=== PATIENT | male | born 1945 | race Caucasian/White ===

== ENCOUNTER 2017-04-06 13:57 | Inpatient (IN) | payer MEDICARE, OTHER ==
[~2017-04-06] VITALS: Ht 172.7 cm; Wt 64.9 kg
[~2017-04-06 13:57] MED LIST: ASPIR 8181 MG PO; B12INJ PO; CILOSTAZOL 100100 M1 PO; FOLIC ACID1 MG PO; LIPITOR40 MG PO; NICOTINE TRANSD21 M1 SUBQ; NIFEDICAL XL60 MG; PLAVIX 75 MG TA75 M1 PO; PROCARDIA XL60 MG PO; REMERON15 MG PO; TOPROL XL100 MG PO; VITAMIN D1000 UNIT PO
[2017-04-06 14:01] VITALS: BP 119/60
[2017-04-06 14:24] LABS: ABSOLUTE BASOPHILS 0.1 thou/uL (0.0-0.2); ABSOLUTE EOSINOPHILS 0.2 thou/uL (0.0-0.7); ABSOLUTE LYMPHOCYTES 2.7 thou/uL (0.8-5.3); ABSOLUTE MONOCYTES 0.7 thou/uL (0.0-1.2); ABSOLUTE NEUTROPHILS 12.7 thou/uL (1.6-8.1); BASOPHILS 0.5 %; HEMATOCRIT 38.9 % (42.0-52.0); HEMOGLOBIN 13.1 gm/dL (14.0-18.0); LYMPHOCYTES 16.4 %; MCH 30.3 pg (26.0-34.0); MCHC 33.6 g/dL (28.0-37.0); MCV 89.9 fL (80.0-100.0); MONOCYTES 4.4 %; MPV 8.6 fl. (7.2-11.1); NUCLEATED RBCS 0 /100WBC; PLATELET COUNT* 302 thou/uL (150-400); POLYS 77.7 %; RBC 4.32 mil/uL (4.50-6.00); RDW-CV 13.8 % (10.5-14.5); WBC 16.3 thou/uL (4.0-11.0)
[2017-04-06 14:38] LABS: ANION GAP 13 mmol/L (7-16); APTT 29.8 Seconds (25.0-31.3); BUN 29 mg/dL (7-18); CALCIUM 9.2 mg/dL (8.5-10.1); CHLORIDE 103 mmol/L (98-107); CO2 25 mmol/L (21-32); GLUCOSE 178 mg/dL (70-99); INR 1.1; POTASSIUM 3.3 mmol/L (3.5-5.1); PROTIME 10.5 Seconds (9.20-11.50); SODIUM 141 mmol/L (136-145)
[2017-04-06 14:43] LABS: ALBUMIN 3.3 g/dL (3.4-5.0); ALKALINE PHOSPHATASE 82 U/L (46-116); SGOT 26 U/L (15-37); SGPT 33 U/L (30-65); TOTAL BILIRUBIN 1.7 mg/dL (<0.1-1.0); TOTAL PROTEIN 7.9 g/dL (6.4-8.2); TROPONIN-I LEVEL <0.06 ng/mL (<0.06)
--- NOTE | 2017-04-06 15:02 | NUR ---
[facility] SECURITY INCIDENT RESPONSE SPECIALIST NOTIFIED UPON PT RETURN FROM CT. PT CONNECTED TO O2. DAVID CONNECTED PT TO MONITOR
[2017-04-06 16:06] LABS: INFLUENZA A ANTIGEN None Detected (None Detect); INFLUENZA B ANTIGEN None Detected (None Detect)
[2017-04-06 16:28] VITALS: BP 117/69
[2017-04-06 18:33] VITALS: BP 133/67
[2017-04-06 20:00] VITALS: BP 119/53
--- NOTE | 2017-04-06 20:00 | NUR ---
RECEIVED REPORT AND ASSUMED CARE OF PT, ASSESSMENT COMPLETED. PT PLEASANT AND SOFT SPOKEN. DGT AT BEDSIDE. O2 ON AT 2L/NC, NO SOB NOTED, HOB ELEVATED. DGT CONCERNED THAT PT WILL NOT GET SLEEP TONIGHT. STATES HE GOES TO SLEEP BUT DOESN'T STAY ASLEEP. TELEMETRY ON SHOWING SR. WILL CONT TO MONITOR AND ASSIST NEEDED.
[2017-04-07] VITALS: BP 128/55
[2017-04-07 04:00] VITALS: BP 118/50
--- NOTE | 2017-04-07 05:23 | NUR ---
AWAKE MOST OF NIGHT. PT HAS BEEN NPO ORDERED. PREVIOUSLY DRANK COFFEE AND WATER WITHOUT COUGHING OR CHOKING. ABLE TO TAKE HS MEDS ALSO. TELEMETRY CONT TO SHOW SR. GOAL OF COMFORT OBTAINED BUT NOT REST, REMAINS SAFE. HOURLY ROUNDING OBSERVED.
[2017-04-07 05:41] LABS: ABSOLUTE LYMPHOCYTES 1.6 thou/uL (0.8-5.3); ABSOLUTE MONOCYTES 0.2 thou/uL (0.0-1.2); ABSOLUTE NEUTROPHILS 9.8 thou/uL (1.6-8.1); BASOPHILS 0.1 %; HEMATOCRIT 38.4 % (42.0-52.0); HEMOGLOBIN 12.6 gm/dL (14.0-18.0); LYMPHOCYTES 13.6 %; MCH 29.7 pg (26.0-34.0); MCHC 32.9 g/dL (28.0-37.0); MCV 90.3 fL (80.0-100.0); MONOCYTES 1.3 %; NUCLEATED RBCS 0 /100WBC; PLATELET COUNT* 286 thou/uL (150-400); RBC 4.25 mil/uL (4.50-6.00); RDW-CV 13.8 % (10.5-14.5); WBC 11.6 thou/uL (4.0-11.0)
[2017-04-07 06:01] LABS: CALCIUM 9.3 mg/dL (8.5-10.1); CREATININE 1.1 mg/dL (0.6-1.3); POTASSIUM 3.7 mmol/L (3.5-5.1)
[2017-04-07 08:00] VITALS: BP 118/63
--- NOTE | 2017-04-07 09:35 | NUR ---
ASSUMED CARE OF PT AROUND 30 THIS AM. REFER TO ASSESSMENT. PT VOICES NO CONCERNS THIS AM. PT SATS WNL ON RA. IVF INFUSING WITHOUT DIFFICULTY. TELE SR. NO OTHER CONCERNS AT THIS TIME. CLWR. WCTM.
[2017-04-07 11:41] VITALS: BP 121/64
--- NOTE | 2017-04-07 13:20 | EKG ---
[place] [address] ELECTROCARDIOGRAM REPORT Name: SHERI RUVALCABA Room: [address] ADM IN .R.#: [id number] Admission: 04/06/17 Attend Phys: Reginaldo Maloney MD Discharge: Date of : 45 Report #: [id number] THIS REPORT FOR: //name// [facility] ED Test Date: 2017-04-06 Test Time: 14:06:30 Pat Name: SHERI RUVALCABA Department: Room: [facility] Gender: M Count Team Clerk: Robert LANGFORD : 1945 Requested By: Rey Guerrero Order Number: [id number] MD: González Muñoz Measurements Intervals [place] Rate: 77 P: 93 MD: 52 QRS: 66 QRSD: 82 T: 76 QT: 400 QTc: 453 Interpretive Statements Sinus rhythm Short MD interval Baseline wander in lead(s) V4,V5,V6 Compared to ECG 03/03/2010 09:47:52 Short MD interval now present Left ventricular hypertrophy no longer present Electronically Signed On 04-07-2017 13:19:57 HEAD END DESIZING MACHINE OPERATOR by González Muñoz [email or web address] <ELECTRONICALLY SIGNED> By: González Muñoz MD, FACC 04/07/17 1319 1406 1406 González Muñoz MD, FAC /EPI
[2017-04-07 15:23] VITALS: BP 136/62
--- NOTE | 2017-04-07 17:01 | NUR ---
PT PROGRESSING TOWARDS GOALS THIS SHIFT. PLAN OF CARE DISCUSSED WITH PT AND FAMILY. PT TO HAVE VIDEO SWALLOW COMPLETED OUTPATIENT. RN ASSESSED SWALLOW EVAL AT BEDSIDE AND PT DID WELL. PT TITRATED TO RA THIS SHIFT. ANTICIPATE DC HOME TOMORROW. NO OTHER CONCERNS AT THIS TIME. CLWR. WCTM.
[2017-04-08] VITALS (7 sets, daily range): BP systolic 122–152; BP diastolic 49–74
[2017-04-08 06:00] LABS: HEMATOCRIT 35.4 % (42.0-52.0); HEMOGLOBIN 11.7 gm/dL (14.0-18.0); MCH 29.9 pg (26.0-34.0); MCHC 32.9 g/dL (28.0-37.0); MCV 90.9 fL (80.0-100.0); MPV 9.2 fl. (7.2-11.1); NUCLEATED RBCS 0 /100WBC; PLATELET COUNT* 282 thou/uL (150-400); WBC 17.8 thou/uL (4.0-11.0)
[2017-04-08 06:08] LABS: ALBUMIN 2.7 g/dL (3.4-5.0); CALCIUM 8.6 mg/dL (8.5-10.1); POTASSIUM 3.7 mmol/L (3.5-5.1); TOTAL BILIRUBIN 0.5 mg/dL (<0.1-1.0); TOTAL PROTEIN 6.9 g/dL (6.4-8.2)
--- NOTE | 2017-04-08 06:26 | NUR ---
PATIENT'S LS BECAME COARSE, DR ISLAS NOTIFIED. CXR ORDERED. IV LASIX 60MG GIVEN. ON NON-REBREATHER. WILL CONT. WITH CURRENT PLAN OF CARE.
[2017-04-08 06:45] LABS: ABSOLUTE LYMPHOCYTES 0.5 thou/uL (0.8-5.3); ABSOLUTE MONOCYTES 0.4 thou/uL (0.0-1.2); ABSOLUTE NEUTROPHILS 16.9 thou/uL (1.6-8.1); ATYPICAL LYMPHS 1 %
[2017-04-08 06:46] LABS: PLATELET ESTIMATE ADEQUATE
--- NOTE | 2017-04-08 09:52 | NUR ---
ASSUMED CARE OF PT AROUND 0730 THIS AM. REFER TO ASSESSMENT. PT IS SOA AND NOTED TO BE ON 13L OXYGEN HIGH FLOW NC. SATS AROUND 93-95%. WILL DISCUSS PLAN OF CARE WITH PHYSICIAN. NPO AT THIS TIME IN CASE ASPIRATION SUSPECTED. FAMILY AT BEDSIDE. NO OTHER CONCERNS AT THIS TIME. CLWR. WCTM.
--- NOTE | 2017-04-08 17:51 | NUR ---
PT SOMEWHAT PROGRESSING TOWARDS GOALS THIS SHIFT. IVF DC'D AND PT GIVEN IV LASIX TODAY FOR INCREASED OXYGEN DEMANDS AND INCREASED PULMONARY INFILTRATES. PT ABLE TO BE TITRATED FROM 13L OXYGEN TO 5L OXYGEN THIS SHIFT. ANTICIPATE SWALLOW EVAL TOMORROW. CT PE PROTOCOL NEGATIVE THIS SHIFT. VSS. NO OTHER CONCERNS AT THIS TIME. CLWR. WCTM.
--- NOTE | 2017-04-09 00:47 | NUR ---
ALERT AND ORIENTED X 4. SLEEPING NOW. O2 TITRATED TO 2 LITERS. WILL CONT. TO MONITOR RESP STATUS. NO SIGN OF DISTRESS. BED IN LOW POSITION, CALL LIGHT IN REACH. BED ALARM ON.
[2017-04-09 04:00] VITALS: BP 189/93
[2017-04-09 05:14] LABS: ABSOLUTE LYMPHOCYTES 2.1 thou/uL (0.8-5.3); ABSOLUTE MONOCYTES 0.8 thou/uL (0.0-1.2); ABSOLUTE NEUTROPHILS 10.9 thou/uL (1.6-8.1); BASOPHILS 0.1 %; HEMATOCRIT 37.3 % (42.0-52.0); HEMOGLOBIN 12.5 gm/dL (14.0-18.0); LYMPHOCYTES 15.5 %; MCH 29.7 pg (26.0-34.0); MCHC 33.5 g/dL (28.0-37.0); MCV 88.5 fL (80.0-100.0); MONOCYTES 5.8 %; MPV 8.9 fl. (7.2-11.1); NUCLEATED RBCS 0 /100WBC; PLATELET COUNT* 296 thou/uL (150-400); POLYS 78.6 %; RBC 4.22 mil/uL (4.50-6.00); RDW-CV 14.1 % (10.5-14.5); WBC 13.8 thou/uL (4.0-11.0)
[2017-04-09 05:22] LABS: ALBUMIN 2.7 g/dL (3.4-5.0); CALCIUM 8.9 mg/dL (8.5-10.1); CREATININE 1.1 mg/dL (0.6-1.3); TOTAL BILIRUBIN 0.8 mg/dL (<0.1-1.0); TOTAL PROTEIN 6.7 g/dL (6.4-8.2)
[2017-04-09 08:00] VITALS: BP 167/73
[2017-04-09 12:13] VITALS: BP 131/65
--- NOTE | 2017-04-09 13:39 | NUR ---
MET WITH PT TO DISCUSS HOME SITUATION/DC PLANNING. PT LIVES WITH HIS S/O LATIA WHO IS HIS DPOA. PT HAD A STAY AT [facility] IN [place], STATES HAS HAD JET HH SINCE, CONFIRMED WITH [facility]NY/MARIAN[facility] THAT THEY ARE STILL SEEING PT. WILL NEED CALLED AND ORDERS FAXED TO THEM AT [place]. PT STATES HE IS FAIRLY INDEPENDENT WITH HIS BATHING AND DRESSING WITH SET UP. USES WALKER AND SHOWER BENCH. HAS W/C ALSO. LATIA DOES COOKING, CLEANING, DRIVING. PT HOPES TO BE ABLE TO RETURN HOME WITH HH AT [place]. HAS THERAPY ORDERS. WILL FOLLOW
[2017-04-09 17:21] VITALS: BP 124/71
--- NOTE | 2017-04-09 18:46 | NUR ---
PAITNET RESTING IN CHAIR IN ROOM. VITAL SIGNS STABLE AND PATIENT IN NOAPPARENT SIGNSD PF DISTRESS. VIDEO SWALLOW TODAY WITH RECOMMENDATIONS OF NO STRAW AND SMALL SIPS WHEN DRINKING. HOURLY ROUNDING COMPLETED FOR PATINET SAFETY.
[2017-04-09 20:00] VITALS: BP 108/79; BP 136/54
[2017-04-10 01:07] VITALS: BP 144/65
--- NOTE | 2017-04-10 04:34 | NUR ---
ALERT AND ORIENTED X 4, ON 2 LITERS OF OXYGEN. USES URINAL AT BEDSIDE. NO SIGN OF DISTRESS AT THIS TIME. NO SIGN OF DISTRESS. CONT. BED IN LOW POSITION, CALL LIGHT IN REACH. BED ALARM ON. CONT. WITH PLAN OF CARE AT THIS TIME.
[2017-04-10 04:49] VITALS: BP 159/70
[2017-04-10 08:00] VITALS: BP 160/71
[2017-04-10 08:29] LABS: ABSOLUTE LYMPHOCYTES 3.5 thou/uL (0.8-5.3); ABSOLUTE MONOCYTES 0.7 thou/uL (0.0-1.2); ABSOLUTE NEUTROPHILS 5.4 thou/uL (1.6-8.1); BASOPHILS 0.4 %; EOSINOPHILS 0.3 %; HEMOGLOBIN 12.4 gm/dL (14.0-18.0); MCH 29.8 pg (26.0-34.0); MCHC 33.4 g/dL (28.0-37.0); MCV 89.1 fL (80.0-100.0); MONOCYTES 7.5 %; MPV 9.2 fl. (7.2-11.1); NUCLEATED RBCS 0 /100WBC; PLATELET COUNT* 287 thou/uL (150-400); POLYS 55.8 %; RBC 4.15 mil/uL (4.50-6.00); RDW-CV 13.9 % (10.5-14.5); WBC 9.6 thou/uL (4.0-11.0)
[2017-04-10 08:38] LABS: ALBUMIN 2.8 g/dL (3.4-5.0); CALCIUM 8.3 mg/dL (8.5-10.1); CREATININE 1.1 mg/dL (0.6-1.3); POTASSIUM 3.4 mmol/L (3.5-5.1); TOTAL BILIRUBIN 1.1 mg/dL (<0.1-1.0); TOTAL PROTEIN 6.1 g/dL (6.4-8.2)
--- NOTE | 2017-04-10 12:03 | NUR ---
CONTINUE TO FOLLOW, PT STATES FEELING IMPROVED. HOPES TO GO HOME TOMORROW AND STILL WANTS TO CONTINUE WITH [facility].
--- NOTE | 2017-04-10 16:13 | NUR ---
PATIENT RESTING IN CHAIR IN ROOM. UP WITH WALKER AND STANDBY ASSIST. STEADY GAIT. IV ABX DAILY. PAITNET AND FAMILY HOPEFUL FOR DISCHARGE TOMORROW. VITAL SIGNS STABLE AND PAITNET IN NO APPARENT DISTRESS AT THIS TIME. VIDEO SWALLOW YESTERDAY WITH RECOMMENDATION OF NO STRAW AND SMALL SIPS. HOURLY ROUNDING BEING COMPLETD FOR PATIENT SAFETY. PATIENT IS NO MED/SURG STATUS WITH NO TELEMETRY MONITORING.
[2017-04-10 16:18] VITALS: BP 130/60
[2017-04-10 20:00] VITALS: BP 137/59
[2017-04-11 04:00] VITALS: BP 148/55
[2017-04-11 05:08] LABS: ABSOLUTE BASOPHILS 0.1 thou/uL (0.0-0.2); ABSOLUTE EOSINOPHILS 0.3 thou/uL (0.0-0.7); ABSOLUTE LYMPHOCYTES 3.1 thou/uL (0.8-5.3); ABSOLUTE MONOCYTES 0.7 thou/uL (0.0-1.2); ABSOLUTE NEUTROPHILS 6.9 thou/uL (1.6-8.1); BASOPHILS 0.5 %; EOSINOPHILS 2.3 %; HEMATOCRIT 34.6 % (42.0-52.0); HEMOGLOBIN 11.7 gm/dL (14.0-18.0); LYMPHOCYTES 28.3 %; MCHC 33.7 g/dL (28.0-37.0); MCV 89.1 fL (80.0-100.0); MONOCYTES 6.3 %; MPV 8.7 fl. (7.2-11.1); NUCLEATED RBCS 0 /100WBC; PLATELET COUNT* 269 thou/uL (150-400); POLYS 62.6 %; RBC 3.88 mil/uL (4.50-6.00); RDW-CV 13.9 % (10.5-14.5)
--- NOTE | 2017-04-11 05:09 | NUR ---
PT CARE ASSUMED AFTER REPORT. ASSESSMENT COMPLETE. M/S STATUS. FALL PRECAUTIONS IN PLACE INCLUDING BED ALARM. DENIES PAIN. CALL LIGHTIN REACH. BED IN LOWEST POSITION. PROGRESSING TOWARDS GOALS.
[2017-04-11 05:38] LABS: ALBUMIN 2.6 g/dL (3.4-5.0); CALCIUM 8.3 mg/dL (8.5-10.1); POTASSIUM 3.6 mmol/L (3.5-5.1)
[2017-04-11 07:30] VITALS: BP 156/64
--- NOTE | 2017-04-11 11:02 | NUR ---
RECEIVED PT CARE 0700. PT IS ALERT AND ORIENTED X4. VSS. LAND INSPECTOR TRACING SR. PATIENT DENIES PAIN. NO SOA. PATIENT UP AMBULATING IN HALLWAY WITH THERAPY. PLANNING FOR DC TO HOME TODAY. AM ASSESSMENT CHARTED. MEDS PER MAR. PATIENT UPDATED ON PLAN OF CARE. WAITING FOR DR HENSON TO ROUND. WILL CONTINUE TO MONITOR.
[2017-04-11 11:48] VITALS: BP 156/64
--- NOTE | 2017-04-11 12:13 | NUR ---
ORDERS NOTED FOR DC. MET WITH PT AND S/O LATIA. PT ANXIOUS TO GO HOME. DENIES NEEDS OTHER THAN HH. CALLED AND FAXED ORDERS TO [facility]. THEY WILL SEE PT AT [place].
[2017-04-11] MEDS ORDERED: VENTOLIN HFA 1818 GM INH (12:26)
[2017-04-11] MEDS ORDERED: LEVAQUIN 500 M500 M2 PO (12:27)
--- NOTE | 2017-04-11 13:15 | NUR ---
RECEIVED DISCHARGE ORDERS PER DR HENSON. SCRIPTS CALLED INTO PATIENTS PHARMACY IN [place]. IV DISCONTINUED. PATIENT DRESSED. EDUCATED PATIENT AND HIS FAMILY ON F/U APPT AND HOME MEDICATIONS. ALL BELONGINGS ARE PACKED AND LEAVING WITH PATIENT. PATIENT AND FAMILY DENY ANY QUESTIONS OR CONCERNS. LEAVING VIA WHEELCHAIR ACCOMPANIED BY NURSING STAFF AND HIS FAMILY.
--- NOTE | 2017-04-11 13:34 | NUR ---
PT. DISCHARGED TO HOME PRIOR TO O.T. EVAL. PT. WILL HAVE HOME HEALTH. PLEASE ORDER HOME HEALTH O.T. SERVICES IF THEY ARE NEEDED.
== END 2017-04-11 13:16 | disposition home health service (06) | DRG 177 ==
LOC: M.ERS 13:57 → M.TBA-ER 15:20 → M.2W 15:20
PROVIDERS: Family Medicine; ADMIT Internal Medicine
DX: J69.0 Pneumonitis due to inhalation of food and vomit (principal); G93.40 Encephalopathy, unspecified; R65.10 Systemic inflammatory response syndrome (SIRS) of non-infectious origin without acute organ dysfunction; I73.9 Peripheral vascular disease, unspecified; F10.21 Alcohol dependence, in remission; E87.70 Fluid overload, unspecified; Z90.49 Acquired absence of other specified parts of digestive tract; Z79.899 Other long term (current) drug therapy; Z79.82 Long term (current) use of aspirin; Z82.3 Family history of stroke; Z87.891 Personal history of nicotine dependence; Z86.73 Personal history of transient ischemic attack (TIA), and cerebral infarction without residual deficits

== ENCOUNTER 2017-04-29 13:57 | Inpatient (IN) | payer MEDICARE, OTHER ==
[~2017-04-29] VITALS: Ht 175.3 cm; Wt 62.6 kg
[~2017-04-29 13:57] MED LIST changes: +LEVAQUIN 500 M500 M2 PO; +VENTOLIN HFA 1818 GM INH
[2017-04-29 14:11] VITALS: BP 131/55
[2017-04-29 14:29] LABS: ABSOLUTE BASOPHILS 0.1 thou/uL (0.0-0.2); ABSOLUTE EOSINOPHILS 0.1 thou/uL (0.0-0.7); ABSOLUTE MONOCYTES 0.9 thou/uL (0.0-1.2); ABSOLUTE NEUTROPHILS 5.8 thou/uL (1.6-8.1); BASOPHILS 0.7 %; EOSINOPHILS 1.5 %; HEMATOCRIT 35.3 % (42.0-52.0); HEMOGLOBIN 11.8 gm/dL (14.0-18.0); LYMPHOCYTES 22.3 %; MCH 29.2 pg (26.0-34.0); MCHC 33.4 g/dL (28.0-37.0); MCV 87.4 fL (80.0-100.0); MPV 8.4 fl. (7.2-11.1); NUCLEATED RBCS 0 /100WBC; PLATELET COUNT* 375 thou/uL (150-400); POLYS 65.5 %; RBC 4.04 mil/uL (4.50-6.00); RDW-CV 14.1 % (10.5-14.5); WBC 8.9 thou/uL (4.0-11.0)
[2017-04-29 14:36] LABS: ANION GAP 11 mmol/L (7-16); BUN 26 mg/dL (7-18); CALCIUM 9.1 mg/dL (8.5-10.1); CHLORIDE 104 mmol/L (98-107); CO2 26 mmol/L (21-32); GLUCOSE 109 mg/dL (70-99); POTASSIUM 3.4 mmol/L (3.5-5.1); SODIUM 141 mmol/L (136-145)
[2017-04-29 14:47] LABS: ALKALINE PHOSPHATASE 74 U/L (46-116); LIPASE 117 U/L (73-393); SGOT 16 U/L (15-37); SGPT 18 U/L (30-65); TOTAL PROTEIN 7.5 g/dL (6.4-8.2); TROPONIN-I LEVEL <0.06 ng/mL (<0.06)
[2017-04-29] MEDS ORDERED: VITAMIN B-12500 MCG PO (14:50)
[2017-04-29] MEDS ORDERED: NIFEDIPINE ER60 M1 PO (14:50)
[2017-04-29] MEDS ORDERED: ZYRTEC10 M4 PO (14:53)
[2017-04-29 15:27] LABS: INFLUENZA A ANTIGEN None Detected (None Detect); INFLUENZA B ANTIGEN None Detected (None Detect)
[2017-04-29 16:20] VITALS: BP 123/57
[2017-04-29 16:30] VITALS: BP 145/59
--- NOTE | 2017-04-29 17:39 | NUR ---
PATIENT ADMITTED TO ROOM 314 FROM ER. ALERT AND ORIENTED X 4. C/O LEFT SIDE PAIN, PRN HYDROCODONE AND SCHED LIDOCAINE PATCH GIVEN AND PLACED. K+ 3.4, 40MEQ PO DOSE GIVEN ORDERED. NO SKIN BREAKDOWN NOTED. IVF AND SCHED ABX INFUSING. REFUSED SCD'S. PATIENT DAUGHTER STATED THAT PATIENT IS UNABLE TO USE STRAWS BUT DOES NOT NEED SPECIAL DIET OR THICKENED LIQUIDS. FALL RISK IN PLACE. ORIENTED TO CALL LIGHT, CALL LIGHT WITHIN REACH. VITALS STABLE.
[2017-04-29 20:30] VITALS: BP 97/51
[2017-04-29 23:29] VITALS: BP 110/53
[2017-04-30 00:37] LABS: URINE BILIRUBIN NEGATIVE (Negative); URINE BLOOD NEGATIVE (Negative); URINE CLARITY CLEAR; URINE COLOR DARK YELLOW; URINE GLUCOSE-RANDOM NEGATIVE (Negative); URINE KETONES TRACE (Negative); URINE LEUKOCYTES-REFLEX NEGATIVE (Negative); URINE NITRITE-REFLEX NEGATIVE (Negative); URINE PROTEIN NEGATIVE (Negative); URINE SPECIFIC GRAVITY >= 1.030 (1.005-1.030); URINE UROBILINOGEN 0.2 E.U./dl (0.2-1.0)
[2017-04-30 03:30] VITALS: BP 98/44
--- NOTE | 2017-04-30 05:24 | NUR ---
PT SLEPT FAIRLY WELL OVERNIGHT. UP WITH ASSIST TO BR ONCE TO VOID, WEAK. USING URINAL IN BED TO VOID ALSO. RAC IVF INFUSING PER PUMP, ABX GIVEN ORDERED. HYDROCODONE GIVEN X1 FOR CO L SIDE PAIN WITH GOOD RESULT. AM LABS DRAWN. ROOM AIR. IS GIVEN AND USE ENCOURAGED, RT TX GIVEN ORDERED. TAKES PILLS WHOLE ONE AT A TIME, NO STRAWS. BP MEDS HELD. ABLE TO USE CALL LITE AND MAKE NEEDS KNOWN. BED ALARM ON FOR SAFETY. PULM TO SEE PT TODAY.
[2017-04-30 06:09] LABS: HEMATOCRIT 28.4 % (42.0-52.0); MCH 29.6 pg (26.0-34.0); MCHC 33.7 g/dL (28.0-37.0); MPV 8.7 fl. (7.2-11.1); RBC 3.23 mil/uL (4.50-6.00); RDW-CV 14.4 % (10.5-14.5)
[2017-04-30 06:11] LABS: HEMOGLOBIN 9.6 gm/dL (14.0-18.0)
[2017-04-30 06:15] LABS: ALBUMIN 2.4 g/dL (3.4-5.0); CALCIUM 8.3 mg/dL (8.5-10.1); MAGNESIUM 1.9 mg/dL (1.8-2.4); POTASSIUM 3.7 mmol/L (3.5-5.1); TOTAL BILIRUBIN 0.9 mg/dL (<0.1-1.0); TOTAL PROTEIN 6.3 g/dL (6.4-8.2)
[2017-04-30 08:00] VITALS: BP 125/50
--- NOTE | 2017-04-30 12:14 | NUR ---
CM SPOKE TO THE PATIENT AND HIS SPOUSE TO DISCUSS DISCHARGE PLANNING, HOME SITUATION, AND TO INFORM OF THE ROLE OF CM. PATIENT'S SPOUSE STATES THAT HE WAS RECENTLY DISCHARGED FROM THE HOSPITAL TWO WEEKS AGO. PATIENT RESIDES AT HOME WITH SPOUSE AND SHE ASSIST HIM WITH CARES NEEDED. PATIENTS SPOUSE DOES ALL COOKING, CLEANING, AND DRIVING. PATIENT IS CURRENTLY ON-SERVICE WITH [facility] FOR [facility]/OT. PATIENT USES A WALKER AND SHOWER BENCH. PATIENT HAS A HX OF SNF AT [facility], BUT STATES THAT HE PLANS TO RETURN HOME AT D/C. CM WILL REMAIN AVAILABLE TO ASSIST AND FOLLOW NEEDED.
[2017-04-30 16:00] VITALS: BP 129/45
--- NOTE | 2017-04-30 18:03 | EKG ---
[place] [address] ELECTROCARDIOGRAM REPORT Name: SHERI RUVALCABA Room: [address] ADM IN M.R.#: [id number] Admission: 04/29/17 Attend Phys: Janna Ga MD Discharge: Date of : 45 Report #: [id number] THIS REPORT FOR: //name// [facility] ED Test Date: 2017-04-29 Test Time: 14:44:43 Pat Name: SHERI RUVALCABA Department: Room: [facility] Gender: M Calender Let Off Helper: : 1945 Requested By: Astrid Walker Order Number: [id number] MD: Silvio Mclean Measurements Intervals [place] Rate: 95 P: 90 PA: 157 QRS: 50 QRSD: 78 T: 72 QT: 354 QTc: 445 Interpretive Statements Sinus rhythm Borderline ST depression, lateral leads Borderline ST elevation, inferior leads Baseline wander in lead(s) V1,V2 Compared to ECG 04/06/2017 14:06:30 ST (T wave) deviation now present Short PA interval no longer present Electronically Signed On 04-30-2017 18:03:46 CDT by Silvio Mclean [email or web address] <ELECTRONICALLY SIGNED> By: Silvio Mclean MD, FACC 04/30/17 1803 1444 1444 Silvio Mclean MD, FAC /EPI
--- NOTE | 2017-04-30 18:50 | NUR ---
PT UP IN CHAIR MOST OF SHIFT. PT DENIES PAIN. DENIES SOA. IVF INFUSING
[2017-04-30 20:00] VITALS: BP 118/55
[2017-05-01 05:14] LABS: ABSOLUTE BASOPHILS 0.1 thou/uL (0.0-0.2); ABSOLUTE EOSINOPHILS 0.2 thou/uL (0.0-0.7); ABSOLUTE LYMPHOCYTES 1.9 thou/uL (0.8-5.3); ABSOLUTE MONOCYTES 0.7 thou/uL (0.0-1.2); ABSOLUTE NEUTROPHILS 4.6 thou/uL (1.6-8.1); BASOPHILS 0.7 %; EOSINOPHILS 2.7 %; HEMATOCRIT 30.3 % (42.0-52.0); HEMOGLOBIN 10.4 gm/dL (14.0-18.0); LYMPHOCYTES 25.5 %; MCH 29.7 pg (26.0-34.0); MCHC 34.4 g/dL (28.0-37.0); MCV 86.4 fL (80.0-100.0); MONOCYTES 9.6 %; MPV 8.6 fl. (7.2-11.1); NUCLEATED RBCS 0 /100WBC; PLATELET COUNT* 348 thou/uL (150-400); POLYS 61.5 %; RDW-CV 14.2 % (10.5-14.5); WBC 7.5 thou/uL (4.0-11.0)
[2017-05-01 05:17] LABS: ALBUMIN 2.5 g/dL (3.4-5.0); CALCIUM 8.6 mg/dL (8.5-10.1); CREATININE 0.9 mg/dL (0.6-1.3); MAGNESIUM 1.9 mg/dL (1.8-2.4); POTASSIUM 3.4 mmol/L (3.5-5.1); TOTAL BILIRUBIN 0.8 mg/dL (<0.1-1.0); TOTAL PROTEIN 6.4 g/dL (6.4-8.2)
--- NOTE | 2017-05-01 05:55 | NUR ---
PATIENT SLEPT PART OF THE NIGHT. IV FLUIDS AND IV ANTIBIOTICS WERE GIVEN ORDERED. PATIENT HAD NO COMPLAINTS OF PAIN. PATIENT WAS A LITTLE FORGETFUL THIS SHIFT. BED ALARM IS ON FOR PATIENT SAFETY. WILL CONTINUE TO MONITOR.
[2017-05-01 07:35] VITALS: BP 109/53
--- NOTE | 2017-05-01 11:54 | CON ---
[address] [address] CONSULTATION Name: SHERI RUVALCABA Room: [address] IN M.R.#: [id number] Admission: 04/29/17 Attend Phys: Janna Ga MD Discharge: Date of : 45 Report #: [id number] THIS REPORT FOR: //name// CC: Janna Quintana REASON FOR CONSULTATION: Pneumonia. HISTORY OF PRESENT ILLNESS: The patient is a 71-year-old male patient with history of stroke in 01/2017, without residual weakness. He lives with his . At the last visit, he was admitted to this facility a few weeks ago with pneumonia. At that time, he had swallow evaluation. According to his daughter, who is a nurse, he is monitoring his diet and he eats slowly and there is no evidence of aspiration or cough with meals for the last few weeks. He did not feel himself and he did not look right, according to the and she brought him in for evaluation. He was found to have left-sided pulmonary infiltrate. He denied cough. He does not feel short of breath. He reports some discomfort on the left side of his chest, on the rib side laterally. He had no sick contacts. He denied any headache or blurring of vision. He denied any wheezes. Although he smoked for multiple years, he quit around 3 months ago. He is not on oxygen at home and not on any regular inhalers. However, during my visit, I noted that he had some cough that sounded congested, but he was able to bring it up and swallow it. ALLERGIES: No known drug allergies. HOME MEDICATIONS: He is on Plavix, aspirin, nicotine patch, mirtazapine, albuterol sulfate inhaler, levofloxacin, which he finished from the last visit and nifedipine. PAST SURGICAL HISTORY: Appendectomy and also surgery with hernia repair. PAST MEDICAL HISTORY: Presumed history of COPD, history of nicotine abuse, history of alcohol abuse in the past and a history of stroke, although no remnant weakness. SOCIAL HISTORY: He is an ex-smoker, quit 3 months ago. He does not drink alcohol excessively now and does not abuse any drugs. REVIEW OF SYSTEMS: Twelve systems reviewed with the patient and his daughter negative, other than those as mentioned above. ALLERGIES: No known drug allergies. PHYSICAL EXAMINATION: VITAL SIGNS: On examination, he is on room air with saturation more than 90%, blood pressure 125/50, pulse rate of 100 to 110 and temperature 36.3. [place] [address] CONSULTATION Name: SHERI RUVALCABA Room: [address]#: [id number] Admission: 04/29/17 Attend Phys: Janna Ga MD Discharge: Date of : 45 Report #: [id number] HEAD: Normocephalic, atraumatic. EYES: Pupils equal and reactive to light. Extraocular muscles intact. EARS: External ears look healthy and normal. ORAL CAVITY: Moist mucous membrane. NECK: Supple. No palpable lymph node. No palpable thyroid. Trachea is central. GENERAL: Awake, alert, oriented answering questions appropriately. Speech is clear. CHEST: Some diminished air movement and rhonchi in the left lung side, but no wheezes, no crackles. HEART: S1, S2, no murmur. ABDOMEN: Benign, soft, lax and nontender. Positive bowel sounds. LOWER EXTREMITIES: Trace edema. NEUROLOGIC: Moving 4 extremities spontaneously. No focal weakness. Cranial nerves grossly normal. PSYCHIATRIC: Mood and affect appropriate. Good insight and judgement. LYMPHATICS: No palpable lymph nodes. LABORATORY DATA: His white blood count is 8.9, hemoglobin 11.8 and platelet 375,000. His creatinine is 1, BUN of 18, potassium 3.7 and sodium 142. His chest x-ray showed left lower lobe faint infiltrate. IMPRESSION: 1. Pneumonia. 2. History of smoking. 3. High risk for aspiration. 4. History of stroke. PLAN: He had a swallow evaluation at the last visit. No evidence of cough with meals or dysphagia or choking with meals. At this point, I would continue antibiotics as you are doing. He is currently on room air and I will continue nebulization treatment. If he continues to do well, can consider discharge in the morning on oral antibiotics. I did recommend for the patient and his daughter to have a repeat chest x-ray after 6-8 weeks to make sure that the infiltrate has resolved. Continue aspiration precaution all the time. Thank you for the consult. <ELECTRONICALLY SIGNED> By: Christie Hanna MD 05/01/17 1154 1006 [id number] Hanna MD /jerrell
[2017-05-01] MEDS ORDERED: LIDOPATCH1 EACH TOP (15:04)
[2017-05-01] MEDS ORDERED: PEPCID20 MG PO (15:04)
[2017-05-01] MEDS ORDERED: DUONEB 2.5-0.5 M3 ML INH (15:04)
[2017-05-01] MEDS ORDERED: TRAMADOL 50 MG50 MG PO (15:04)
[2017-05-01] MEDS ORDERED: HYDROCODON-ACE1 EAC7 PO (15:04)
[2017-05-01] MEDS ORDERED: FOLIC ACID1 MG PO (15:04)
[2017-05-01 15:56] VITALS: BP 109/53
[2017-05-01 16:00] VITALS: BP 108/43
--- NOTE | 2017-05-01 17:39 | NUR ---
PATIENT A&OX4, FORGETFUL. ROOM AIR, ON 2L O2 PRN FOR SOA. IV RIGHT AC SALINE LOCK WITH IV ABX. UP WITH ASSISTX1 WITH GAITBELT AND WALKER, UNSTEADY. C/O PAIN, RELIEF WITH MEDCIATION. NO OTHER CONCERNS AT THIS TIME. PATIENT WAS D/C TO IN HOUSE REHAB VACILITY, VERBALIZES UNDERSTANDING, NO FURTHER QUESTIONS. CALL AND GAVE REPORT. PATIENT LEFT UNIT AT 1735 VIA W/C WITH ALL BELONGINGS. NOTHING LEFT BEHIND. APPROPRIATE AND COOPORATIVE WITH CARE.
== END 2017-05-01 17:35 | DRG 177 ==
LOC: M.ERS 13:57 → M.3W 15:03 → M.TBA-ER 15:03 → M.3W 16:25
PROVIDERS: Physician Assistant; ADMIT Internal Medicine
DX: J15.6 Pneumonia due to other Gram-negative bacteria (principal); J96.91 Respiratory failure, unspecified with hypoxia; E44.0 Moderate protein-calorie malnutrition; R13.10 Dysphagia, unspecified; I73.9 Peripheral vascular disease, unspecified; Z79.899 Other long term (current) drug therapy; Z87.891 Personal history of nicotine dependence; Z90.49 Acquired absence of other specified parts of digestive tract; I69.391 Dysphagia following cerebral infarction; Z68.20 Body mass index [BMI] 20.0-20.9, adult

== ENCOUNTER 2017-05-01 15:56 | Inpatient (IN) | payer MEDICARE, OTHER ==
[~2017-05-01] VITALS: Ht 175.3 cm; Wt 65.1 kg
[~2017-05-01 15:56] MED LIST changes: +DUONEB 2.5-0.5 M3 ML INH; +HYDROCODON-ACE1 EAC7 PO; +LIDOPATCH1 EACH TOP; +NIFEDIPINE ER60 M1 PO; +PEPCID20 MG PO; +TRAMADOL 50 MG50 MG PO; +VITAMIN B-12500 MCG PO; +ZYRTEC10 M4 PO
[2017-05-01 18:00] VITALS: BP 118/53
--- NOTE | 2017-05-01 18:07 | NUR ---
PT ARRIVED TO UNIT VIA WC. PT ORIENTED TO UNIT. CALL LIGHT WITHIN REACH. PT EATING DINNER.
[2017-05-01 19:30] VITALS: BP 108/54
--- NOTE | 2017-05-01 20:35 | NUR ---
SITTING UP IN BED WATCHING TV. DENIES DISCOMFORT. DTR AT BEDSIDE. TOOK MEDS WHOLE ONE AT A TIME WITH WATER.
[2017-05-02 05:04] LABS: HEMATOCRIT 31.9 % (42.0-52.0); HEMOGLOBIN 10.7 gm/dL (14.0-18.0); MCH 29.2 pg (26.0-34.0); MCHC 33.7 g/dL (28.0-37.0); MCV 86.6 fL (80.0-100.0); MPV 8.4 fl. (7.2-11.1); RBC 3.68 mil/uL (4.50-6.00); RDW-CV 14.4 % (10.5-14.5); WBC 8.7 thou/uL (4.0-11.0)
[2017-05-02 05:22] LABS: CALCIUM 8.7 mg/dL (8.5-10.1); POTASSIUM 3.5 mmol/L (3.5-5.1)
--- NOTE | 2017-05-02 05:30 | NUR ---
UP X 2 DURING THE NIGHT TO THE BATHROOM TO VOID. NO COMPLAINTS VOICED. IV ABT'S GIVEN PER ORDER. HOURLY ROUNDING IN PROGRESS.
[2017-05-02 07:00] VITALS: BP 122/64
[2017-05-02 08:00] VITALS: BP 122/64
--- NOTE | 2017-05-02 16:39 | NUR ---
INITIAL ASSESSMENT: PATIENT ADMITTED TO INPATIENT REHAB ON 05/01/17 WITH DEBILITY. PATIENT ALERT AND ORIENTED. PATIENT RESIDES AT HOME WITH S/O LATIA AND SHE ASSIST THE PATIENT NEEDED WITH CARES, DOES ALL COOKING, CLEANING, AND DRIVING. PATIENT OWNS A WALKER, SHOWER BENCH, AND WHEELCHAIR. PATIENT WAS ON-SERVICE WITH [facility] PRIOR TO ADMISSION AND HOPES TO RESUME THOSE SERVICES WHEN HE RETURNS HOME. PATIENTS HOME HAS 12 STEPS TO THE ENTRY, AND 0 STEPS INSIDE THE HOME. CM ORIENTED THE PATIENT TO THE ROLE OF CM, REHAB PROCESS, RESIDENT'S RIGHT'S INFO, AND TEAM CONFRENCE MEETING. CM WILL REMAIN AVAILABLE TO ASSIST AND FOLLOW NEEDED.
--- NOTE | 2017-05-02 18:18 | NUR ---
PT CARE ASSUMED THIS AM, ASSESSMENT AND VITAL SIGNS COMPLETED DOCUMENTED. PT WAS SLOW TO FOCUS AND SLOW TO PROCESS THIS AM BUT HAS IMPROVED SOME OVER THE DAY. PT IS VERY FORGETFUL AND OCCASIONALLY IMPULSIVE SO HE HAS BEEN MOVED CLOSER TO THE NURSING STATION. APPETITE HAS BEEN POOR THROUGHOUT THE DAY BUT HE ATE 60% OF DINNER. IV ABX CONTINUE WITHOUT ADVERSE REACTION. FALL PRECAUTIONS AND HOURLY ROUNDING IN PLACE.
[2017-05-02 19:58] VITALS: BP 154/58
--- NOTE | 2017-05-03 05:38 | NUR ---
PT ALERT AND ORIENTED THIS SHIFT, PT HAS NO COMPLAINTS OF PAIN, PT UP TO BATHROOM WITH ASSIST X1, USES GAIT BELT AND WALKER, NEW IV TO LEFT FOREARM, CONTINUES ON ABX FOR PNEUMONIA, NO S/S ADVERSE REACTIONS NOTED, PT RESTS QUIETLY THROUGHOUT THE NIGHT, CALLS OUT APPROPRIATELY
[2017-05-03 08:00] VITALS: BP 129/60
--- NOTE | 2017-05-03 18:55 | NUR ---
PT HAS BEEN MUCH MORE ALERT TODAY, ABLE TO HAVE A CONVERSATION. IV ABX GIVEN ORDERED. PT's APPETITE ALSO GRADUALLY IMPROVING. FALL PRECAUTIONS AND HOURLY ROUNDING CONTINUE. NO ACUTE DISTRESS.
[2017-05-03 20:30] VITALS: BP 148/66
--- NOTE | 2017-05-04 05:00 | NUR ---
ASSUMED PT CARE AT 1930. PT ALERT AND ORIENTED TO SELF. DENIES PAIN. UP TO BATHROOM WITH ONE, GAIT BELT AND WALKER X2 TO VOID. PT HAS STRONG PRODUCTIVE COUGH. SCHEDULED RT TX. PT ON 2L 02 PER NC. NEW IV TO RIGHT FOREARM. ABX INFUSING WITHOUT DIFFICULTY. USES CALL LIGHT APPROPRIATELY. CALL LIGHT AND FREQUENTLY USED ITEMS WITHIN REACH. HOURLY ROUNDING IN PROGRESS, WILL CONTINUE TO MONITOR.
[2017-05-04 07:30] VITALS: BP 141/70
[2017-05-04 10:17] LABS: HEMATOCRIT 33.7 % (42.0-52.0); HEMOGLOBIN 11.1 gm/dL (14.0-18.0); MCH 28.7 pg (26.0-34.0); MCHC 32.8 g/dL (28.0-37.0); MCV 87.5 fL (80.0-100.0); MPV 7.6 fl. (7.2-11.1); RBC 3.85 mil/uL (4.50-6.00); RDW-CV 14.6 % (10.5-14.5); WBC 9.8 thou/uL (4.0-11.0)
[2017-05-04 10:30] LABS: ALBUMIN 2.7 g/dL (3.4-5.0); CALCIUM 8.9 mg/dL (8.5-10.1); CREATININE 1.7 mg/dL (0.6-1.3); POTASSIUM 3.4 mmol/L (3.5-5.1); TOTAL BILIRUBIN 0.8 mg/dL (<0.1-1.0)
[2017-05-04 20:00] VITALS: BP 130/64
--- NOTE | 2017-05-04 20:20 | NUR ---
SITTING UP IN RECLINER WATCHING TV. DENIES DISCOMFORT. TRANSFERRED FROM RECLINER TO BED WITH SBA, GAITBELT, WALKER. TOOK PILLS WHOLE A FEW AT A TIME WITH NECTAR THICKENED APPLE JUICE.
--- NOTE | 2017-05-05 06:06 | NUR ---
UP X TWO DURING THE NIGHT TO THE BATHROOM. HAD A SMALL BOWEL MOVEMENT THIS MORNING. HAD NAUSEA/VOMITING DURING THE NIGHT. COUGHED UP THICK SLIMY SPUTUM. ZOFRAN GIVEN. HOURLY ROUNDING IN PROGRESS.
[2017-05-05 07:47] VITALS: BP 168/79
--- NOTE | 2017-05-05 18:37 | NUR ---
PT CARE ASSUMED THIS AM, ASSESSMENT AND VITAL SIGNS COMPLETED DOCUMENTED. NEW IV STARTED IN THE RIGHT FOREARM, ANTIBIOTICS CONTINUE SCHEDULED. PT STARTED OUT VERY DROWSY THIS AM SO REMERON DOSE HAS BEEN LOWERED. PT REQUIRES A LOT OF ENCOURAGEMENT TO EAT AND DRINK. PILLS GIVEN ONE AT A TIME IN PUDDING TODAY. FALL PRECAUTIONS AND HOURLY ROUNDING OBSERVED.
[2017-05-05 20:00] VITALS: BP 121/51
--- NOTE | 2017-05-05 20:10 | NUR ---
SITTING UP IN RECLINER WATCHING TV. IV PIGGYBACK INFUSING WITHOUT DIFFICULTY. DENIES DISCOMFORT. TRANSFERRED FROM CHAIR TO BED WITH CGA, GAITBELT, WALKER. HAS TO BE REMINDED TO USE THE WALKER. 02 NC AT 3 LITERS. LCTA AND DIMINISHED IN BASES. TOOK MEDS WHOLE ONE AT A TIME WITH CHOCOLATE PUDDING FOLLOWED WITH NECTAR THICKENED TEA. SLIGHT DIFFICULTY WITH SWALLOWING PILLS. IT TOOK TWO ATTEMPTS TO SWALLOW ONE OF THE PILLS.
[2017-05-06 04:31] LABS: ABSOLUTE BASOPHILS 0.1 thou/uL (0.0-0.2); ABSOLUTE EOSINOPHILS 0.3 thou/uL (0.0-0.7); ABSOLUTE LYMPHOCYTES 1.3 thou/uL (0.8-5.3); ABSOLUTE MONOCYTES 0.9 thou/uL (0.0-1.2); ABSOLUTE NEUTROPHILS 7.3 thou/uL (1.6-8.1); EOSINOPHILS 3.4 %; HEMATOCRIT 30.2 % (42.0-52.0); HEMOGLOBIN 10.3 gm/dL (14.0-18.0); LYMPHOCYTES 13.2 %; MCH 29.5 pg (26.0-34.0); MCHC 34.3 g/dL (28.0-37.0); MCV 86.1 fL (80.0-100.0); MONOCYTES 8.7 %; MPV 8.5 fl. (7.2-11.1); NUCLEATED RBCS 0 /100WBC; PLATELET COUNT* 368 thou/uL (150-400); POLYS 73.7 %; RDW-CV 14.7 % (10.5-14.5); WBC 9.9 thou/uL (4.0-11.0)
[2017-05-06 05:07] LABS: ALBUMIN 2.4 g/dL (3.4-5.0); CALCIUM 8.3 mg/dL (8.5-10.1); POTASSIUM 3.4 mmol/L (3.5-5.1); TOTAL BILIRUBIN 0.6 mg/dL (<0.1-1.0); TOTAL PROTEIN 5.8 g/dL (6.4-8.2)
[2017-05-06 05:12] LABS: CREATININE 4.1 mg/dL (0.6-1.3)
--- NOTE | 2017-05-06 05:19 | NUR ---
UP X ONE DURING THE NIGHT TO THE BATHROOM TO VOID. RESTED QUIETLY UNTIL ABOUT 0450. AWAKENED WITH NAUSEA. ZOFRAN GIVEN. PT'S OXYGEN WAS OFF AND 02 SAT DECREASED TO 84% OXYGEN REPLACED. HOURLY ROUNDING IN PROGRESS.
--- NOTE | 2017-05-06 07:37 | NUR ---
NEW CONSULT FOR NEPHROLOGY CALLED IN TO ANSWERING SERVICE. PRINCE WILL FORWARD THE MESSAGE TO DR GANDHI.
[2017-05-06 08:00] VITALS: BP 179/87
[2017-05-06 08:27] LABS: URINE BILIRUBIN NEGATIVE (Negative); URINE BLOOD 1+ (Negative); URINE CLARITY CLEAR; URINE COLOR YELLOW; URINE GLUCOSE-RANDOM NEGATIVE (Negative); URINE KETONES NEGATIVE (Negative); URINE LEUKOCYTES-REFLEX NEGATIVE (Negative); URINE NITRITE-REFLEX NEGATIVE (Negative); URINE PROTEIN 1+ (Negative); URINE UROBILINOGEN 0.2 E.U./dl (0.2-1.0)
[2017-05-06 08:44] LABS: SQUAMOUS 4-10 Moderate /LPF (0-3); URINE WBC-REFLEX 0-5 Rare /HPF (0-5)
[2017-05-06 08:45] LABS: BACTERIA-REFLEX 1-9 Few /HPF (None Seen); CASTS None Seen /LPF (None Seen); CRYSTALS None Seen /LPF (None Seen); MUCUS None Seen strn/LPF (None Seen); URINE RBC 3-10 Few /HPF (0-2)
[2017-05-06 12:50] LABS: SMEAR FOR EOSINOPHILS Rare per HPF
--- NOTE | 2017-05-06 16:39 | NUR ---
AM ASSESSMENT AND VITAL SIGNS COMPLETED DOCUMENTED. PT HAS REFUSED TO EAT OR DRINK THIS SHIFT. MOUTH SWABS AND LIP BALM USED FREQUENTLY. PT STATES THE THICKENED LIQUIDS MAKE HIM GAG AND VOMIT. PT'S DAUGHTER AND GIRLFRIEND HERE EARLIER AND I DISCUSSED THE NEED TO ADDRESS CODE STATUS AND THAT PT MAY NEED A PEG TUBE IF HE CONTINUES THIS WAY. PT IS NOW ON IVF FOR HYDRATION AND ANTIBIOTICS HAVE BEEN ADJUSTED TO AVOID GI ISSUES. RESENDIZ CATH INSERTED THIS AM PER NEPHROLOGY ORDERS FOR CRITICAL I/O. URINE IS VELA COLORED, PT IS ON PLAVIX AND ASPIRIN. OUTPUT WILL BE MONITORED. CXR DONE, INDICATES SLIGHT WORSENING SINCE 05/01. PT MAY BENEFIT FROM A REPEAT VIDEO SWALLOW. RENAL ULTRASOUND DONE, RESULTS WNL. FALL PRECAUTIONS AND HOURLY ROUNDING CONTINUE.
--- NOTE | 2017-05-06 18:22 | NUR ---
PT HAS CONTINUED TO HAVE DIFFICULTY WITH CHOKING AND GAGGING. AT THIS TIME HE IS SWITCHED TO NPO STATUS AND WILL BE HAVING A VIDEO SWALLOW FOR FURTHER EVALUATION.
[2017-05-06 19:58] VITALS: BP 153/76
[2017-05-06 20:30] VITALS: BP 112/58
[2017-05-06 21:00] VITALS: BP 127/89
[2017-05-06 22:00] VITALS: BP 115/62
[2017-05-06 23:00] VITALS: BP 134/75
--- NOTE | 2017-05-06 23:07 | NUR ---
ASSUMED PT CARE AT 1930. PT ALERT TO SELF, COOPERATIVE WITH CARES. PT ON 3L 02 PER NC, 02 SATS 95%. IV FLUIDS RUNNING AT 100 HR TO RIGHT WRIST. PT NPO. RESENDIZ TO DD WITH BLOOD TINGED URINE. PT DEVELOPED DIFFICULTY BREATHING. EXECUTIVE SECRETARY SOCIAL WELFARE CALLED, RT CALLED, PT PLACED ON NON-REBREATHER, THEN ON BIPAP. EXECUTIVE SECRETARY SOCIAL WELFARE SPOKE WITH DR. TURCIOS, PT TRANSFERRED TO ICU. DAUGHTER CALLED AND ADVISED THAT PT MOVED TO ICU AT 2300.
--- NOTE | 2017-05-06 23:27 | NUR ---
PT TRANSFERED FROM REHAB ROOM 320 TO ICU BED 002, DISCHARGED OUT OF COMPUTER SYSTEM FROM ROOM 320 AND READMITTED TO ROOM 02, NO CHANGE IN ADMISSION HX.
[2017-05-07] VITALS (9 sets, daily range): BP systolic 104–152; BP diastolic 52–81
[2017-05-07 04:33] LABS: HEMATOCRIT 33.9 % (42.0-52.0); HEMOGLOBIN 11.1 gm/dL (14.0-18.0); MCH 28.6 pg (26.0-34.0); MCHC 32.8 g/dL (28.0-37.0); MCV 87.1 fL (80.0-100.0); MPV 8.2 fl. (7.2-11.1); NUCLEATED RBCS 0 /100WBC; PLATELET COUNT* 375 thou/uL (150-400); RBC 3.89 mil/uL (4.50-6.00); RDW-CV 14.5 % (10.5-14.5); WBC 17.7 thou/uL (4.0-11.0)
[2017-05-07 05:30] LABS: ALBUMIN 2.6 g/dL (3.4-5.0); CREATININE 4.4 mg/dL (0.6-1.3); PHOSPHORUS* 5.3 mg/dL (2.5-4.9); POTASSIUM 4.1 mmol/L (3.5-5.1); TOTAL BILIRUBIN 0.6 mg/dL (<0.1-1.0); TOTAL PROTEIN 6.6 g/dL (6.4-8.2)
[2017-05-07 06:06] LABS: ABSOLUTE LYMPHOCYTES 1.8 thou/uL (0.8-5.3); ABSOLUTE MONOCYTES 1.1 thou/uL (0.0-1.2); ABSOLUTE NEUTROPHILS 14.9 thou/uL (1.6-8.1); PLATELET ESTIMATE ADEQUATE
[2017-05-07 06:07] LABS: ANISOCYTOSIS 1+; POIKILOCYTOSIS 1+
--- NOTE | 2017-05-07 06:50 | NUR ---
PROGRESSING TOWARDS GOALS, TOLERATING BIPAP THROUGHOUT NOC, LAXIX 120MG IVP GIVEN X2 PER ORDER HELPFUL FOR DIURESIS, 650CC URINE OUT VIA RESENDIZ CATHER, LUNGS DECREASED CRACKLES DURING NOC, FOLLOWING SIMPLE COMMANDS, AGITATED WITH IV STICKS AND BLOOD DRAWS, RESTING QUIETLY WITH EYES CLOSED MOST OF NOC, EASILY AROUSABLE TO VERBAL STIMULI, NSR WITH OCCASIONAL PAC'S TRACING CLINICAL FACULTY, FIO2 DECREASED FROM 100 PERCENT TO 60 PERCENT THIS SHIFT, CALL LIGHT REMAINS IN REACH, BED REMAINS IN LOW AND LOCKED POSITION.
--- NOTE | 2017-05-07 07:31 | NUR ---
PATIENT CARE ASSUMED AT 0700. PATIENT AWAKES TO STIMULI, ANSWERRS QUESTIONS APPROPRIATELY. ORIENTED X4, BUT REMAINS DROWSY. CURRENTLY ON BIPAP. RT TTIRATED FIO2 TO 50% UPON ASSESSMENT. PATIENT LUNG SOUNDS DIMINISHED WITH NO ABNORMAL CRACKLES/WHEEZES. VITALS WNL. AFEBRILE. ALLOWING PATIENT TO CONTINUE TO REST AT THIS TIME. REFER TO ASSESSMENT AND CHARTING.
--- NOTE | 2017-05-07 08:45 | NUR ---
PATIENT NOW COMPLETELY AWAKE. REMAINS ORIENTED X4, BUT SEEMS TO NOT UNDERSTAND DISEASE PROCESS OF SEVERITY OF SITUATION. ATTEMPTED TO PILLS WITH SIPS OF THICKENED LIQUIDS, BUT PATIENT CONTINUING TO HAVE TROUBLE SWALLOWING. GAVE PILLS CRUSHED IN VERY SMALL AMOUNT OF APPLESAUCE. INQUIRED ABOUT WHAT PATIENT UNDERSTANDS ABOUT OPTIONS. HE STATED HE DOES NOT WANT TO EAT/DRINK BUT DOES ALSO NOT WANT PEG TUBE PLACEMENT. STATED "THERE MUST BE ANOTHER OPTION". ALSO CONTINUING TO REPEAT "THEY JUST NEED TO FIND OUT WHO CAUSED MY STROKE. SOMEONE IS RESPONSIBLE!" EDUCATED ABOUT PATIENT'S RISK FACTORS FOR STROKE, INCLUDING SMOKING HISTORY. PATIENTS CRITICAL THINKING IS NOT ADEQUATE. WILL PROVIDE CONTINUING EDUCATION THROUGHOUT SHIFT.
--- NOTE | 2017-05-07 08:49 | NUR ---
DR TOVAR FROM NEPHROLOGY IN TO SEE PATIENT. STATED IT IS HARD TO TELL WHETHER PATIENT WAS FLUID OVERLOAD OR ASPIRATED LAST NIGHT DURING EVENT NO XRAY WAS ORDERED. ORDERS FOR CHEST XRAY TODAY. DOES WANT PATIENT ON FLUIDS FOR KIDNEYS, SINCE PATIENT IS IN ICU AND HAS CLOSE OBSERVATION. WANTS NEPHROLOGY CALLED BEFORE ANY POTENTIAL LASIX ADMINISTRATINS.
--- NOTE | 2017-05-07 08:51 | NUR ---
PATIENT ON 3L NC WITH O2 SAT 90-93% AT THIS TIME
--- NOTE | 2017-05-16 13:49 | CON ---
[address] [address] CONSULTATION Name: SHERI RUVALCABA Room: [address] IN .R.#: [id number] Admission: 05/01/17 Attend Phys: Alyssa Cary DO Discharge: 05/06/17 Date of : 45 Report #: [id number] THIS REPORT FOR: //name// CC: Alyssa Quintana DATE OF SERVICE: 05/06/2017 CONSULTING PHYSICIAN: Dr. Zelaya. REASON FOR CONSULTATION: Acute renal failure. REASON FOR ADMISSION: For rehabilitation, also pneumonia and post CVA. HISTORY OF PRESENT ILLNESS: This is a very pleasant 72-year-old male who has a past medical history of a CVA in 01/2017, also hospitalization for pneumonia in March, COPD, aspiration pneumonia, who came in this time with another episode of pneumonia, which was a left-sided infiltrate and has been receiving treatment for that. He is also in rehab getting stronger post CVA. His creatinine was 1.0 on 05/02/2017 but worsened to 1.7 on 05/04/2017 and then worsened to 4.1 today, which is 05/06/2017 and hence, Nephrology has been consulted. The patient's blood pressure has been running more or less stable. No major hypotensive episodes recorded. He was getting vancomycin and Zosyn for treatment of his pneumonia and a vancomycin level was 18 on 05/03/2017. Medicine consult has also been following the patient. The patient has not been on any NSAIDs, HERBER inhibitor or ARB. He has been eating and drinking all right. So this morning, bladder scan reveals about 410 mL of urine in his bladder. Also, his diet has been changed to thickened food, so he has not been drinking much water. He has also been started on IV fluids already. Currently, the patient is completely oriented and just feels tired. REVIEW OF SYSTEMS: Which includes generalized tired, fatigue; cough, which is better; urinary retention, will be getting a Avalos and other review of systems done, negative. PAST MEDICAL HISTORY: Which includes history of alcohol dependence in the past, ataxia, aspiration pneumonia, CVA last year in January and weakness. PAST SURGICAL HISTORY: Which includes history of appendectomy. Other surgical history reviewed. ALLERGIES: No known drug allergies. CURRENT INPATIENT MEDICATIONS: These were reviewed. FAMILY HISTORY: Not relevant [place] [address] CONSULTATION Name: SHERI RUVALCABA Room: [address]#: [id number] Admission: 05/01/17 Attend Phys: Alyssa Cary DO Discharge: 05/06/17 Date of : 45 Report #: [id number] SOCIAL HISTORY: The patient has a history of use of alcohol at home and he was living at home before this hospitalization. PHYSICAL EXAMINATION: VITAL SIGNS: Blood pressure is 129/60, temperature is 36.6, respiratory rate is 16, pulse rate is 71 and he is on 3 liters nasal cannula. Pulse ox has not been recorded. GENERAL: He is awake, alert, oriented x 3. Just looks very tired. HEENT: Mucous membranes are very dry. NECK: No JVD. CHEST: Bilateral diminished breath sounds and distant breath sounds, but no crackles or wheezing heard. CARDIOVASCULAR: S1, S2 normal. No murmurs. ABDOMEN: Soft and he has some suprapubic fullness. Otherwise, there is no tenderness and bowel sounds are diminished. EXTREMITIES: He has no lower extremity edema, symmetrical extremities. NEUROLOGICAL: Gross neurological function seems to be intact. PSYCHIATRIC: Mood and affect seem to be normal. LABORATORY DATA: 05/06/2017, hemoglobin is 10.3, potassium is 3.4, sodium is 143, CO2 is 21, creatinine is 4.1, BUN is 19 and other labs are reviewed. IMAGING: There is no imaging to be reviewed for this admission. ASSESSMENT AND PLAN: 1. Acute renal failure, which is likely because of dehydration and urinary retention: The patient was retaining 400 mL of urine. He will be getting a Avalos placement and we will also start him on Flomax. We will also check a renal ultrasound. He is also dehydrated, so we will give him IV fluids in the form of half normal saline at 100 mL an hour. Avoid nephrotoxic agents. Avoid Fleets enema, NSAIDs and HERBER inhibitors and ARBs. Avoid IV contrast. Strict I's and O's need to be maintained. Hopefully, creatinine will start getting better in the next few days and there is no acute need for dialysis right now. Try to keep his mean arterial pressure more than 65. 2. Hypokalemia: This is going to be replaced. 3. Anion gap metabolic acidosis with metabolic alkalosis: Former is because of renal dysfunction, latter is because of intravascular volume depletion. No need for bicarbonate replacement, should get better. 4. We will also check a UA. 5. Status post cerebrovascular accident: The patient is getting rehab for that. 6. Left-sided, most likely hospital-acquired pneumonia: He was getting vancomycin, which has been now stopped and he is getting Zosyn. Zosyn dose has been decreased to q.12h. because of decreased renal function. 7. Urinary retention: For now, urine catheter will be placed and Flomax will [address] [place] [address] CONSULTATION Name: SHERI RUVALCABA Room: [address] IN .R.#: [id number] Admission: 05/01/17 Attend Phys: Alyssa Cary DO Discharge: 05/06/17 Date of : 45 Report #: [id number] be added. He may need a Urology consult if he fails his voiding trial again. 8. Case was discussed with the patient's nurse and Dr. Zelaya and we will continue to follow this patient. Thank you for this consultation. <ELECTRONICALLY SIGNED> By: Gem Peterson MD 05/16/17 1349 0813 [id number] Peterson MD /nt
--- NOTE | 2017-05-21 15:04 | D ---
[address] [address] DISCHARGE SUMMARY Name: SHERI RUVALCABA Room: [address] IN M.R.#: [id number] Admission: 05/01/17 Attend Phys: Alyssa Cary DO Discharge: 05/06/17 Date of : 45 Report #: [id number] THIS REPORT FOR: //name// CC: Alyssa Quintana DATE OF SERVICE: 05/07/2017 DISCHARGE DISPOSITION: To Acute due to respiratory distress and rapid decline. Medications were reconciled by Internal Medicine. The patient had during the evening rapid decline in his respiratory status and was emergently transferred off the acute inpatient rehabilitation to acute medicine floor to monitor his oxygen saturations and his breathing. Due to the urgency of the discharge a discharge physical examination was not completed. <ELECTRONICALLY SIGNED> By: Alyssa Cary DO 05/21/17 1504 1451 1501Kelshannan Cary DO /nt
--- NOTE | 2017-06-12 13:29 | H ---
[address] [address] HISTORY AND PHYSICAL Name: SHERI RUVALCABA Room: [address] IN M.R.#: [id number] Admission: 05/01/17 Attend Phys: Alyssa Cary, Discharge: 05/06/17 Date of : 45 Report #: [id number] THIS REPORT FOR: //name// CC: Alyssa Quintana HISTORY OF PRESENT ILLNESS: This is a man who is admitted to inpatient rehabilitation to facilitate safe discharge home, status post debility, status post hospitalization in March for pneumonia, chronic obstructive pulmonary disease, aspiration pneumonia. He has multiple medical comorbidities with physical and occupational therapy issues as well as speech and language pathology with needs in memory, cognition. He has needs where his previous level of function was independent to modified independent with activities of daily living. Current level of function is minimum to moderate assistance with physical and occupational therapy, Speech and Language Pathology also evaluated him and has needs 30-60 minutes, no changes since the preadmission screening. Estimated length of stay is 12-14 days with discharge disposition to the home setting. PAST MEDICAL HISTORY: He does have some issues with alcohol, mental status, ataxia, fall, hand laceration, pneumonia, weakness. ALLERGIES: No known drug allergies. MEDICATIONS: Reviewed, reconciled and are available in MAR. REVIEW OF SYSTEMS: A 14-point review of systems is done and is negative except as mentioned in the HPI, specifically no chest pain, shortness of breath. ASSESSMENT: 1. Status post debility post hospitalization. 2. Recent stroke with changes in his hemiparesis and post-stroke residual effects. 3. Chronic obstructive pulmonary disease, pneumonia and aspiration pneumonia with video swallow pending. <ELECTRONICALLY SIGNED> By: Alyssa Cary DO 06/12/17 1329 195 Natan Cary DO /nt
--- NOTE | 2017-06-12 13:29 | PLAN ---
[address] [address] REHAB UNIT PLAN OF CARE Name: SHERI RUVALCABA Room: [address] IN .R.#: [id number] Admission: 05/01/17 Attend Phys: Alyssa Cary DO Discharge: 05/06/17 Date of : 45 Report #: [id number] THIS REPORT FOR: //name// CC: Alyssa Quintana DATE OF SERVICE: 05/05/2017 This is a 72-year-old male admitted to inpatient rehabilitation to facilitate safe discharge home status post cerebrovascular accident. He had been admitted recently with weakness and debility, was sent home and then was readmitted about 1 week ago. He also had a stay at [facility], this is status post cerebrovascular accident with ongoing weakness and debility. He does have increased side effects from his stroke. He also has had pneumonia, COPD and exacerbation of all of his symptoms. His previous level of function was modified independent to independent with activities of daily living. Current level of function was minimal to moderate assistance of 1-2 depending on therapy, activity and time of day. He does have supportive family where he lives with his spouse. He also has a daughter that is very involved. MEDICAL PROGNOSIS: Good. REHABILITATION PROGNOSIS: Good. Estimated length of stay is 12-14 days with discharge disposition to the home setting with supportive family. Physical therapy will see the patient 60-90 minutes per day, 5 days per week, working on upper and lower body strength, balance, coordination, navigation. Occupational therapy will work with the patient 60-90 minutes per day, 5 days per week, working on upper and lower body strength, balance, coordination, navigation, bathing, dressing, and toileting. Speech and language pathology will work with the patient 30-90 minutes per day, 5 days per week, working on comprehension, expression, problem solving and memory. This an overall plan of care, may change from time to time. We will team him weekly and make changes to the plan of care as needed. <ELECTRONICALLY SIGNED> By: Alyssa Cary DO 06/12/17 1329 1632 [id number] Cary DO /nt
== END 2017-05-06 23:00 | DRG 947 ==
LOC: M.REH 15:56 → M.ICU 17:59 → M.REH 17:59 → M.ICU 05-06 23:01 → M.REH 05-06 23:11 → M.ICU 05-06 23:11 → M.REH 05-06 23:15 → M.ICU 05-06 23:15
PROVIDERS: Internal Medicine; ADMIT Physical Medicine & Rehabilitation
DX: R53.81 Other malaise (principal); J69.0 Pneumonitis due to inhalation of food and vomit; J96.91 Respiratory failure, unspecified with hypoxia; N17.9 Acute kidney failure, unspecified; E87.2 Acidosis; E87.3 Alkalosis; E87.0 Hyperosmolality and hypernatremia; J44.9 Chronic obstructive pulmonary disease, unspecified; R27.0 Ataxia, unspecified; R47.02 Dysphasia; I73.9 Peripheral vascular disease, unspecified; G31.84 Mild cognitive impairment of uncertain or unknown etiology; E86.0 Dehydration; R33.9 Retention of urine, unspecified; E87.6 Hypokalemia; R63.0 Anorexia; R11.0 Nausea; E86.1 Hypovolemia; Z90.49 Acquired absence of other specified parts of digestive tract; Z86.73 Personal history of transient ischemic attack (TIA), and cerebral infarction without residual deficits; Z87.891 Personal history of nicotine dependence; Z87.01 Personal history of pneumonia (recurrent); Z68.21 Body mass index [BMI] 21.0-21.9, adult

== ENCOUNTER 2017-05-06 23:04 | Inpatient (IN) | payer MEDICARE, OTHER ==
[~2017-05-06] VITALS: Ht 175.3 cm; Wt 79.3 kg
--- NOTE | ~2017-05-06 | PROC ---
[address] [address] PROCEDURE REPORT Name: SHERI RUVALCABA Room: [address] ADM IN .R.#: [id number] Admission: 05/06/17 Attend Phys: Baljinder Stoll MD Discharge: Date of : 45 Report #: [id number] THIS REPORT FOR: //name// For GI report, please see the Provation report in Perceptive 7 content. By: [id number] Records Staff [facility] /JOHN
[2017-05-07] VITALS (12 sets, daily range): BP systolic 119–148; BP diastolic 54–73
--- NOTE | 2017-05-07 10:40 | NUR ---
PATIENT CARE ASSUMED AT 0700. PATIENT TRANSFERED FROM REHAB UNIT OVERNIGHT, AND WAS NOT DISCHARGED AND READMITTED TO THE UNIT. ADMITTING HAS NOW DISCHARGED AND READMITTED THE PATIENT. ORDERS AND BEING RENEWED. REFER TO PREVIOUS CHART FOR SOME PREVIOUS NURSING NOTES.
--- NOTE | 2017-05-07 12:28 | EKG ---
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 : 1945 Requested By: Ryley Swanson Order Number: [id number] Jeannine MD: Pasquale Kramer Measurements Intervals [place] Rate: 104 P: 83 [place]: 157 QRS: 70 QRSD: 90 T: 49 QT: 359 QTc: 473 Interpretive Statements Sinus tachycardia Atrial premature complex poor r wave progression Borderline ST depression, lateral leads Baseline wander in lead(s) V1 Compared to ECG 04/29/2017 14:44:43 Atrial premature complex(es) now present Sinus rhythm no longer present ST (T wave) deviation still present Electronically Signed On 05-07-2017 12:28:24 CDT by Pasquale Kramer [email or web address] <ELECTRONICALLY SIGNED> By: Pasquale Kramer MD, FACC 05/07/17 1228 1145 1145 Pasquale Kramer MD, FAC /EPI
[2017-05-07 13:01] LABS: URINE BILIRUBIN NEGATIVE (Negative); URINE BLOOD 3+ (Negative); URINE CLARITY CLEAR; URINE COLOR YELLOW; URINE GLUCOSE-RANDOM NEGATIVE (Negative); URINE KETONES NEGATIVE (Negative); URINE LEUKOCYTES-REFLEX NEGATIVE (Negative); URINE NITRITE-REFLEX NEGATIVE (Negative); URINE PROTEIN NEGATIVE (Negative); URINE SPECIFIC GRAVITY 1.015 (1.005-1.030); URINE UROBILINOGEN 0.2 E.U./dl (0.2-1.0)
[2017-05-07 13:12] LABS: SQUAMOUS NONE SEEN /LPF (0-3)
[2017-05-07 13:13] LABS: CASTS None Seen /LPF (None Seen); CRYSTALS None Seen /LPF (None Seen); MUCUS 0-3 Light strn/LPF (None Seen); URINE RBC 3-10 Few /HPF (0-2); URINE WBC-REFLEX 0-5 Rare /HPF (0-5)
[2017-05-07 13:28] LABS: ABSOLUTE BASOPHILS 0.1 thou/uL (0.0-0.2); ABSOLUTE EOSINOPHILS 0.1 thou/uL (0.0-0.7); ABSOLUTE LYMPHOCYTES 1.4 thou/uL (0.8-5.3); ABSOLUTE MONOCYTES 0.8 thou/uL (0.0-1.2); ABSOLUTE NEUTROPHILS 13.9 thou/uL (1.6-8.1); BASOPHILS 0.6 %; EOSINOPHILS 0.8 %; HEMATOCRIT 33.6 % (42.0-52.0); HEMOGLOBIN 10.9 gm/dL (14.0-18.0); LYMPHOCYTES 8.5 %; MCH 28.5 pg (26.0-34.0); MCHC 32.4 g/dL (28.0-37.0); MCV 87.9 fL (80.0-100.0); MONOCYTES 4.7 %; MPV 8.2 fl. (7.2-11.1); NUCLEATED RBCS 0 /100WBC; PLATELET COUNT* 395 thou/uL (150-400); POLYS 85.4 %; RBC 3.82 mil/uL (4.50-6.00); RDW-CV 14.6 % (10.5-14.5); WBC 16.2 thou/uL (4.0-11.0)
[2017-05-07 13:39] LABS: ALBUMIN 2.7 g/dL (3.4-5.0); CALCIUM 9.5 mg/dL (8.5-10.1); CREATININE 4.7 mg/dL (0.6-1.3); POTASSIUM 3.2 mmol/L (3.5-5.1); TOTAL BILIRUBIN 0.7 mg/dL (<0.1-1.0); TOTAL PROTEIN 7.7 g/dL (6.4-8.2)
[2017-05-07 14:32] LABS: BE -4.8 mmol/L (-2 to +3); HCO3 16.5 mmol/L (22.0-26.0); PCO2 22.5 mmHg (35.0-45.0); PO2 61.1 mmHg (75.0-100.0); pH 7.482 (7.340-7.450)
--- NOTE | 2017-05-07 17:08 | 2DMMODE ---
[place] [address] 2 D/M-MODE ECHOCARDIOGRAM Name: SHERI RUVALCABA Room: [address] IN [facility]#: [id number] Admission: 05/06/17 Attend Phys: Baljinder Stoll, Discharge: Date of : 45 Date of Service: 05/07/17 1707 Report #: [id number] THIS REPORT FOR: //name// APPROVED REPORT Study performed: 05/07/2017 13:29:59 EXAM: Comprehensive 2D, Doppler, and color-flow Echocardiogram Patient Location: In-Patient Room #: 002 Status: routine BSA: 1.79 HR: 104 bpm BP: 148/73 mmHg Rhythm: NSR Other Information Study Quality: Fair Indications Respiratory distress, assess EF 2D Dimensions LVEF(%): 70.70 (>50%) IVSd: 10.82 (7-11mm) LVOT Diam: 17.98 (18-24mm) LVDd: 35.46 mm PWd: 9.22 (7-11mm) Ascending Ao: 27.57 (22-36mm) LVDs: 21.55 (25-40mm) Aortic Root: 30.19 mm Vega's LVEF: 70.70 % Volumes Left Atrial Volume (Systole) LA ESV Index: 30.40 mL/m2 Aortic Valve AoV Peak Beka.: 1.36 m/s AO Peak Gr.: 7.41 mmHg LVOT Max P.91 mmHg AO Mean Gr.: 4.38 mmHg LVOT Mean P.48 mmHg LVOT Max V: 1.11 m/s AO V2 VTI: 26.72 cm LVOT Mean V: 0.73 m/s PILAR (VTI): 1.98 cm2 LVOT V1 VTI: 20.86 cm Mitral Valve MV Mean Gr.: 11.05 mmHg E/A Ratio: 1.18 [place] [address] 2 D/M-MODE ECHOCARDIOGRAM Name: SHERI RUVALCABA Room: [address] IN [facility]#: [id number] Admission: 05/06/17 Attend Phys: Baljinder Stoll, Discharge: Date of : 45 Date of Service: 05/07/17 1707 Report #: [id number] MV Decel. Time: 325.21 ms MV E Max Beka.: 1.70 m/s MV PHT: 94.31 ms MVA (PHT): 2.33 cm2 TDI E/Lateral E': 21.25 E/Medial E': 15.45 Medial E' Beka.: 0.11 m/s Lateral E' Beka.: 0.08 m/s Pulmonary Valve PV Peak Beka.: 1.16 m/s PV Peak Gr.: 5.39 mmHg Tricuspid Valve TR Peak Gr.: 33.09 mmHg RVSP: 38.00 mmHg Left Ventricle The left ventricle is normal size. There is normal LV segmental wall motion. There is normal left ventricular wall thickness. Left ventricular systolic function is normal. The left ventricular ejection fraction is within the normal range. LVEF is 65-70%. The left ventricular diastolic function is normal. Right Ventricle The right ventricle is normal size. The right ventricular systolic function is normal. Atria Left atrium is mildly dilated. The right atrium size is normal. Aortic Valve Mild aortic valve sclerosis. Aortic valve is not well visualized. No aortic regurgitation is present. There is no aortic valvular stenosis. Mitral Valve There is mitral annular calcification. Mild mitral regurgitation. No evidence of mitral valve stenosis. Tricuspid Valve The tricuspid valve is normal in structure. Trace tricuspid regurgitation. The RVSP is 35-40 mmHg. Pulmonic Valve The pulmonary valve is normal in structure. There [place] [address] 2 D/M-MODE ECHOCARDIOGRAM Name: SHERI RUVALCABA Room: [address] IN ..#: [id number] Admission: 05/06/17 Attend Phys: Baljinder Stoll, Discharge: Date of : 45 Date of Service: 05/07/17 1707 Report #: [id number] valvular regurgitation. Great Vessels The aortic root is normal in size. IVC is normal in size and collapses with >50% inspiration Pericardium There is no pericardial effusion. Left pleural effusion. <Conclusion> LVEF is 65-70%. Mild mitral regurgitation. Mild aortic valve sclerosis. Aortic valve is not well visualized. Trace tricuspid regurgitation. The RVSP is 35-40 mmHg. <ELECTRONICALLY SIGNED> By: Pasquale Kramer MD, FACC 05/07/171706 06 06 Pasquale Kramer MD, FACC /INF
--- NOTE | 2017-05-07 18:02 | NUR ---
PATIENT PROGRESSING TOWARDS GOALS. O2 TITRATED TO 3L NC, CURRENT SAT 96%. HAS REMAINED AFEBRILE SINCE LOW GRADE TEMP THIS MORNING. TRANSFERED X6 FROM BED TO WHEELCHAIR AND BACK FOR TESTS. PASSED SWALLOW STUDY, BUT REQUIRES UPRIGHT POSITION, NO STRAW. EATING MORE THIS SHIFT. DENIES PAIN. DAUGHTER AND SIGNIFICANT OTHER HAD MEETING WITH PHYSICIAN AND UPDATED ON PLAN OF CARE. DTR WISHES FOR NURSING TO CALL HER IF ANYTHING CHANGED. DENIES FURTHER NEEDS FROM NURSING AT THIS TIME.
[2017-05-08] VITALS (11 sets, daily range): BP systolic 120–170; BP diastolic 64–80
--- NOTE | 2017-05-08 07:10 | NUR ---
ASSUMED CARE OF PT A 1909, NURSING ASSESSMENT COMPLETED AT START OF SHIFT, PT VOIECED NO CONCERNS THIS SHIFT. PT DENIES PAIN, TRACING SR/ST ON TELE MONITOR THIS SHIFT. Q2H TURNS COMPLETED, PT WEARING SCDS THIS SHIFT, IVF INFUSING, NO S/S OF FLUID OVERLOAD, PT SLOWLY PROGRESSING TOWARDS GOALS THIS SHIFT, FALL PRECAUTIONS IN PLACE, CALL LIGHT WITHIN REACH. PT NPO AFTER MIDNIGHT FOR GASTRIC EMPTYING STUDY TODAY. PT AWARE AND VOICED UNDERSTANDING.
[2017-05-08 08:28] LABS: CALCIUM 8.9 mg/dL (8.5-10.1); CREATININE 4.6 mg/dL (0.6-1.3); POTASSIUM 3.2 mmol/L (3.5-5.1)
[2017-05-08 10:01] LABS: ABSOLUTE BASOPHILS 0.1 thou/uL (0.0-0.2); ABSOLUTE EOSINOPHILS 0.1 thou/uL (0.0-0.7); ABSOLUTE LYMPHOCYTES 1.3 thou/uL (0.8-5.3); ABSOLUTE NEUTROPHILS 11.2 thou/uL (1.6-8.1); BASOPHILS 0.8 %; EOSINOPHILS 1.1 %; HEMATOCRIT 33.3 % (42.0-52.0); HEMOGLOBIN 10.8 gm/dL (14.0-18.0); LYMPHOCYTES 9.1 %; MCH 28.6 pg (26.0-34.0); MCHC 32.5 g/dL (28.0-37.0); MCV 88.1 fL (80.0-100.0); MONOCYTES 7.5 %; MPV 8.7 fl. (7.2-11.1); NUCLEATED RBCS 0 /100WBC; PLATELET COUNT* 358 thou/uL (150-400); POLYS 81.5 %; RBC 3.78 mil/uL (4.50-6.00); RDW-CV 14.8 % (10.5-14.5); WBC 13.8 thou/uL (4.0-11.0)
--- NOTE | 2017-05-08 13:27 | NUR ---
ASSUMED CARE THIS AM AROUND 0730. REFER TO ASSESSMENT. PT HAVING GASTRIC EMPTYING TEST TODAY. NPO AT THIS TIME. PT RECEIVING IV POTASSIUM FOR REPLACEMENT PER NEPHROLOGY. IVF RATE INCREASED PER NEPHROLOGY THIS SHIFT. PT GIVEN ZOFRAN X1 THIS SHIFT FOR NAUSEA. PT REMAINS ON 2.5L OXYGEN/NC. ABLE TO TITRATE TO RA WHILE AWAKE THIS SHIFT. DOWNGRADED TO TELE STATUS THIS SHIFT. NO ROOM ASSIGNMENT AT THIS TIME. NO OTHER CONCERNS AT THIS TIME. CLWR. WCTM.
--- NOTE | 2017-05-08 14:32 | NUR ---
REPORT GIVEN TO TELE NURSE AT THIS TIME. PT'S BELONGINGS TRANSFERRED TO TELE ROOM 218. PT'S AT BEDSIDE AND STATES SHE WILL CONTACT DAUGHTER ABOUT THE TRANSFER. PT TO TRANSFER TO TELE AFTER NEXT NUC/MED VISIT FOR GASTRIC EMPTYING TEST. NO OTHER CONCERNS AT THIS TIME. CLWR. WCTM.
--- NOTE | 2017-05-08 16:41 | NUR ---
PT ARRIVED TO THE FLOOR AT 1500. PT ORIENTED TO UNIT AND SERVICES. FOOD AND DRINK OFFERED, PT CONTINUES TO BE ALERT AND COOPERATIVE. PT DENIES ANY C/O PAIN OR DISTRESS SINCE HIS ARRIVAL ON THE FLOOR. PT CURRENTLY RESTING IN BED WITH HOB ELEVATED, WATCHING TV. VSS, NURSING WILL CONTINUE TO MONITOR.
--- NOTE | 2017-05-08 18:32 | NUR ---
PT HAS CONTINUUED TO BE SLEEPY AND REFUSED TO EAT DINNER. HE IS COOPERATIVE BUT WANTS TO SLEEP AND NOT BE BOTHERED. PT HAS HAD NO C/O PAIN OR CHEST PAIN. NURSING WILL CONTINUE TO MONITOR.
[2017-05-09] VITALS: BP 190/91
--- NOTE | 2017-05-09 04:26 | NUR ---
Pt appeared to be asleep for most of shift. At beginning of shift, pt alert & oriented to person, place and situation. Speech somewhat slurred, Rt-sided weakness. N/V at 2100; zofran given per order. Pt reports relief of nausea afterward. BP elevated at MN, see MAR. Will continue to monitor.
[2017-05-09 04:34] VITALS: BP 153/76
[2017-05-09 05:39] LABS: CALCIUM 8.3 mg/dL (8.5-10.1); CREATININE 4.3 mg/dL (0.6-1.3); POTASSIUM 3.2 mmol/L (3.5-5.1)
--- NOTE | 2017-05-09 07:15 | NUR ---
CHANGE OF SHIFT, BEDSIDE REPORT GIVEN ASSUMED PATIENT CARE PATIENT SEEN AT BEDSIDE, ASLEEP
[2017-05-09 08:00] VITALS: BP 179/86
[2017-05-09 11:30] VITALS: BP 147/73
--- NOTE | 2017-05-09 16:24 | NUR ---
FOLLOWING PATIENT ALONG WITH DR. BARGER FOR POSSIBLE RE-ADMISSION TO ACUTE REHAB ONCE PATIENT IS MEDICALLY STABLE. PT/OT EVALUATIONS ARE PENDING.
[2017-05-09 16:45] VITALS: BP 144/63
--- NOTE | 2017-05-09 18:29 | NUR ---
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
[2017-05-09 20:00] VITALS: BP 183/94
--- NOTE | 2017-05-09 23:05 | NUR ---
BEGAN CARE OF PT AT 1915, BED SIDE REPORT COMPLETED, PT SLEPT THROUGH THE REPORT, PT A/O TO SELF AND LOCATION, SLURRED SPEECH AND LIGHT FACIAL DROOP NOTED WHEN SPEAKING, DAY RN REPORTED DURING SHIFT CHANGE PT HAD A STOKE IN JANUARY OF 2017 WITH SIDE EFFECTS REMAINING, BP ELEVATED AND SCHEDULED IV MEDICATION GIVEN-SEE EMAR, AFEBRILE, O2 88% ON 2L, INCREASED TO 4L NC WITH STATS IMPROVING TO 92%, NON-PRODUCTIVE COUGH, PT REFUSED TO TAKE PO PILLS AND PO FLUIDS, Q2T IN PLACE, RESENDIZ IN PLACE, NO VOMITING THUS FAR, DAY RN REPORTED PT VOMITED MULTIPLE TIMES DURING DAY SHIFT, HOURLY ROUNDING IN PLACE, FALL PRECAUTIONS IN PLACE WITH BED IN LOW LOCKED POSITION WITH ALARM SET, CALL LIGHT AT PTS SIDE, WILL CONT TO MONITOR.
[2017-05-10] VITALS: BP 162/88
--- NOTE | 2017-05-10 03:21 | NUR ---
SUCTIONED PT X2 THUS FAR, DUE TO SPUTUM WHEN COUGHING PT WAS UNABLE TO SPIT OUT.
[2017-05-10 04:00] VITALS: BP 142/74
--- NOTE | 2017-05-10 04:28 | NUR ---
U-CALL SENT TO DR GARCIA REPORTING PT'S TEMP UNDER ARM OF 100.2 AND REFUSAL TO TAKE PO PILLS. [facility] RECEIVED AND ENTERED INTO SYSTEM. NOTIFIED PHARMACY AT [facility]. WILL ADMINISTER WHEN ORDERS VERIFIED AND ON EMAR.
[2017-05-10 08:05] VITALS: BP 169/81
[2017-05-10 09:05] LABS: CALCIUM 8.4 mg/dL (8.5-10.1); CREATININE 4.4 mg/dL (0.6-1.3); POTASSIUM 3.3 mmol/L (3.5-5.1)
--- NOTE | 2017-05-10 09:57 | NUR ---
ASSUMED CARE OF PT AT 0730. PT CONTINUES TO BE ALERT TO PERSON AND SITUATION AT TIMES. PT TOOK ALL HIS MEDICATIONS THIS MORNING BUT REPORTED SOME NAUSEA SHORTLY AFTER. NO EMISIS, PRN IV ZOFRAN GIVEN AND PT IS NOW RESTING IN BED WITH BASIN IN LAP AND HOB ELEVATED TO 80 DEGREES. PT TRACING SA/ST ON THE MONITOR AND DENIES ANY C/O PAIN OR DISCOMFORT. VSS ON 4L VIA NC. NURSING WILL CONTINUE TO MONITOR.
[2017-05-10 10:16] LABS: HEMATOCRIT 28.8 % (42.0-52.0); HEMOGLOBIN 9.6 gm/dL (14.0-18.0); MCHC 33.3 g/dL (28.0-37.0); MPV 8.7 fl. (7.2-11.1); NUCLEATED RBCS 0 /100WBC; PLATELET COUNT* 296 thou/uL (150-400); RBC 3.31 mil/uL (4.50-6.00); RDW-CV 14.8 % (10.5-14.5)
[2017-05-10 10:33] LABS: ABSOLUTE EOSINOPHILS 0.1 thou/uL (0.0-0.7); ABSOLUTE MONOCYTES 0.4 thou/uL (0.0-1.2); ABSOLUTE NEUTROPHILS 11.5 thou/uL (1.6-8.1); PLATELET ESTIMATE ADEQUATE
--- NOTE | 2017-05-10 10:45 | NUR ---
REPORT GIVEN AND ASSUMED PATIENT CARE
[2017-05-10 12:00] VITALS: BP 155/69
--- NOTE | 2017-05-10 14:44 | NUR ---
Spoke with Pt and at bedside. Pt up in chair and able to work with therapy today. Discussed disposition. At this time, Pt/ unsure of what Pt will need at dc, Pt is not moving as well as he was on rehab and has not been eating well. Pt has procedure scheduled for tomorrow per . CM to continue to follow.
[2017-05-10 15:00] VITALS: BP 109/73
--- NOTE | 2017-05-10 19:40 | NUR ---
PATIENT REMAINS A AND O X 3 FORGETFUL PATIENT MORE ALAERT AND ENGAGED TODAY WITH FAMILY AND STAFF SA/SR/ST O2 3L NC POOR APPETITE DID TAKE IN MINIMAL ORAL TODAY ORAL MOUTH AND LIPS DRY AND SCABS AND SCALEY ORAL CARE DONE FREQ, MUCH IMPROVED CARE TAKEN TO AVOID ASPIRATION LAST BM SM, SMEAR TODAY LOW UO 225CC D. YELLOW RESENDIZ TO DD UP WIT 1-2 ASSIST TO CAHIR TODAY WHEN IN BED Q 2HR TURN REF SCDS AT TIMES NO C/O PAIN C/O NAUSEA, NO EMESIS TREATED WITH ZOFRAN IVP WITH RELIEF CALL LIGHT IN REACH AND INSTRUCTION DONE AND FOLLOWED
--- NOTE | 2017-05-10 19:45 | NUR ---
CALL INTO ROOM, PT TACHYPNEIC, HR 140'S AND O2 SAT 86%. LUNG SOUNDS COARSE THROUGHOUT WITH MOIST COUGH. ABLE TO GET SECRETIONS TO BACK OF THROAT, OCC YANKAR SUCTIONING. OXYGEN CHANGED TO 35% VM WITH SAT 88%. RESP NOTIFIED AND CHANGED TO NRB WITH 10L OXYGEN WITH SAT 90%. WORKING WITH PT TO DECREASE HYPERVENTATION BY BLOWING OUT CANDLES. PT ATTEMPTING BUT NOT ABLE TO DO THIS. RESP BELIEVES PT IS IN FLUID OVERLOAD DUE TO HIS RECENT HISTORY.
--- NOTE | 2017-05-10 22:00 | NUR ---
PT SITTING UP IN BED, CONT TO BE DYSPNIC BUT REGULAR AND UNLABORED. NRB REMOVED AND NC AT 5L PLACED. PT STATES HE FEELS SO MUCH BETTER. IV LASIX GIVEN. IVF INFUSING. TELEMETRY SHOWING ST IN 120'S. WILL CONT TO MONITOR AND ASSIST NEEDED.
[2017-05-11] VITALS: BP 122/68
[2017-05-11 04:00] VITALS: BP 136/73
[2017-05-11 05:07] LABS: ABSOLUTE BASOPHILS 0.1 thou/uL (0.0-0.2); ABSOLUTE EOSINOPHILS 0.1 thou/uL (0.0-0.7); ABSOLUTE LYMPHOCYTES 0.9 thou/uL (0.8-5.3); ABSOLUTE NEUTROPHILS 12.4 thou/uL (1.6-8.1); BASOPHILS 0.8 %; EOSINOPHILS 0.5 %; HEMOGLOBIN 10.6 gm/dL (14.0-18.0); LYMPHOCYTES 6.2 %; MCH 28.7 pg (26.0-34.0); MCHC 33.2 g/dL (28.0-37.0); MCV 86.3 fL (80.0-100.0); MONOCYTES 6.8 %; MPV 8.7 fl. (7.2-11.1); NUCLEATED RBCS 0 /100WBC; PLATELET COUNT* 309 thou/uL (150-400); POLYS 85.7 %; RBC 3.71 mil/uL (4.50-6.00); WBC 14.5 thou/uL (4.0-11.0)
[2017-05-11 05:40] LABS: ALBUMIN 2.2 g/dL (3.4-5.0); CALCIUM 8.6 mg/dL (8.5-10.1); CREATININE 4.6 mg/dL (0.6-1.3); POTASSIUM 3.4 mmol/L (3.5-5.1); TOTAL BILIRUBIN 0.6 mg/dL (<0.1-1.0); TOTAL PROTEIN 6.6 g/dL (6.4-8.2)
--- NOTE | 2017-05-11 06:46 | NUR ---
ABLE TO TOLERATE 5L/NC REST OF NIGHT WITH SATS 91-96%. RESP REGULAR. ABLE TO COUGH OCC GETTING OUT STRINGY CLEAR SECRETIONS. HOB REMAINS ELEVATED. TELEMETRY CONT TO SHOW ST WITH RATE 110-120'S. PT ABLE TO ACHIEVE HS GOALS OF REST AND COMFORT. HOURLY ROUNDING OBSERVED.
--- NOTE | 2017-05-11 07:15 | NUR ---
ASSUMED CARE OF PT ASSESSED AND DOCUMENTED. PT IS ON CARDIAC MONITER TRACING ST. PT IS A&O WITH NO C/O PAIN. PT HAS A RESENDIZ WITH CLEAR YELLOW URINE. PT IS ON 5L OF 02. BED IS IN LOW POSITION CALL LIGHT IS IN REACH. PT IS NPO FOR TESTING. WM.
[2017-05-11 08:00] VITALS: BP 160/87
[2017-05-11 09:07] LABS: INR 1.5
[2017-05-11 10:46] LABS: ALBUMIN 2.4 g/dL (3.4-5.0); CALCIUM 8.6 mg/dL (8.5-10.1); CREATININE 4.4 mg/dL (0.6-1.3); POTASSIUM 3.8 mmol/L (3.5-5.1); TOTAL BILIRUBIN 0.6 mg/dL (<0.1-1.0); TOTAL PROTEIN 6.3 g/dL (6.4-8.2)
[2017-05-11 11:03] LABS: HEMATOCRIT 32.4 % (42.0-52.0); HEMOGLOBIN 10.7 gm/dL (14.0-18.0); MCH 28.6 pg (26.0-34.0); MCHC 33.1 g/dL (28.0-37.0); MCV 86.4 fL (80.0-100.0); MPV 8.5 fl. (7.2-11.1); NUCLEATED RBCS 0 /100WBC; PLATELET COUNT* 308 thou/uL (150-400); RBC 3.75 mil/uL (4.50-6.00); RDW-CV 14.8 % (10.5-14.5); WBC 14.6 thou/uL (4.0-11.0)
[2017-05-11 11:19] LABS: ABSOLUTE EOSINOPHILS 0.3 thou/uL (0.0-0.7); ABSOLUTE LYMPHOCYTES 1.6 thou/uL (0.8-5.3); ABSOLUTE MONOCYTES 1.8 thou/uL (0.0-1.2); PLATELET ESTIMATE ADEQUATE
[2017-05-11 11:35] VITALS: BP 140/71
[2017-05-11 12:13] LABS: CLARITY HAZY; COLOR AMBER; TOTAL VOLUME 1450 ml
[2017-05-11 12:40] LABS: BF RBC <1000 /mm3; TOTAL CELL COUNT 59 /mm3
[2017-05-11 13:54] LABS: BF POLYS 40 %; SOURCE THORACENTESIS
[2017-05-11 13:55] LABS: BF LYMPHOCYTES 5 %; BF MONOCYTES 55 %
--- NOTE | 2017-05-11 17:45 | NUR ---
PT DOWN FOR THORENCENTISIS TODAY AND AN EGD. ALL CONSENTS WERE SIGNED. SEE REPORTS. K+ PROTOCOL IN PLACE WITH 2ND IV DOSE RUNNING. PT HAS HAD NO S OR SX OF ADVERSE REACTION TO ABT NOTED. 475 ML OF URINE REMOVED FROM RESENDIZ CATH WHILE PT WAS DOWN FOR LAB PER DERRICK. PT IS RESTING IN ROOM. DAUGHTER AND GIRLFRIEND HAVE BEEN AT BEDSIDE. EDUCATION GIVEN ON DEMAND. HOURLY ROUNDING COMPLETE.
[2017-05-11 20:00] VITALS: BP 144/63
[2017-05-12] VITALS: BP 112/52
[2017-05-12 04:26] VITALS: BP 109/54
--- NOTE | 2017-05-12 04:54 | NUR ---
ASSUMED CARE OF PT AT 1930, NURSING ASSESSMENT COMPLETED AT START OF SHIFT, PT DENIES PAIN, PT PRODUCING THICK DARK YELLOW SPUTUM, SUCTION PROVIDED. PT CONTINUES ON 3L O2 VIA NC. NO S/S OF RESPIRATORY DISTRESS THIS SHIFT. PT UP TO BEDSIDE RECLINER AT START OF SHIFT. Q2H REPOSITIONING COMPLETED. PT TRACING SINUS TACHYCARDIA WITH IRREGULAR RATE IN THE LOW 1OO'S. IV FLUIDS INFUSING. PT SLOWLY PROGRESSING THIS SHIFT. HOURLY ROUNDING COMPLETED, FALL PRECAUTIONS IN PLACE, CALL LIGHT WITHIN REACH.
[2017-05-12 05:19] LABS: ABSOLUTE BASOPHILS 0.1 thou/uL (0.0-0.2); ABSOLUTE EOSINOPHILS 0.2 thou/uL (0.0-0.7); ABSOLUTE LYMPHOCYTES 1.4 thou/uL (0.8-5.3); ABSOLUTE MONOCYTES 0.9 thou/uL (0.0-1.2); ABSOLUTE NEUTROPHILS 8.4 thou/uL (1.6-8.1); BASOPHILS 0.7 %; EOSINOPHILS 1.5 %; HEMOGLOBIN 8.9 gm/dL (14.0-18.0); LYMPHOCYTES 12.4 %; MCH 29.5 pg (26.0-34.0); MCHC 34.4 g/dL (28.0-37.0); MCV 85.8 fL (80.0-100.0); MONOCYTES 8.3 %; MPV 8.1 fl. (7.2-11.1); NUCLEATED RBCS 0 /100WBC; PLATELET COUNT* 284 thou/uL (150-400); POLYS 77.1 %; RBC 3.03 mil/uL (4.50-6.00); RDW-CV 14.8 % (10.5-14.5); WBC 10.9 thou/uL (4.0-11.0)
[2017-05-12 06:39] LABS: CALCIUM 8.1 mg/dL (8.5-10.1); CREATININE 4.5 mg/dL (0.6-1.3); POTASSIUM 3.5 mmol/L (3.5-5.1)
--- NOTE | 2017-05-12 07:30 | NUR ---
CHANGE OF SHIFT, BEDSIDE REPORT GIVEN PATIENT SEEN IN BED AND RESTING
[2017-05-12 08:00] VITALS: BP 147/70
[2017-05-12 12:21] VITALS: BP 134/80
--- NOTE | 2017-05-12 12:38 | EKG ---
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 : 1945 Requested By: Baljinder Stoll Order Number: [id number] Reading MD: Cipriano Andersen Measurements Intervals [place] Rate: 116 P: 96 [place]: 142 QRS: 68 QRSD: 83 T: 22 QT: 328 QTc: 456 Interpretive Statements Sinus tachycardia with irregular rate Anteroseptal infarct, age indeterminate Baseline wander in lead(s) V3 Compared to ECG 05/07/2017 11:45:08 Myocardial infarct finding now present Atrial premature complex(es) no longer present Poor R-wave progression no longer present ST (T wave) deviation no longer present Electronically Signed On 05-12-2017 12:38:52 CDT by Cipriano Andersen [email or web address] <ELECTRONICALLY SIGNED> By: Cipriano Andersen MD, [facility] 05/12/17 1238 2 2 Cipriano Andersen MD, [facility] /EPI
--- NOTE | 2017-05-12 12:39 | EKG ---
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 : 1945 Requested By: Baljinder Stoll Order Number: [id number] Reading MD: Cipriano Andersen Measurements Intervals [place] Rate: 123 P: 105 [place]: 139 QRS: 60 QRSD: 84 T: QT: 339 QTc: 485 Interpretive Statements Sinus tachycardia with irregular rate Borderline repol abnrm, inferolateral leads Borderline prolonged QT interval Baseline wander in lead(s) V1 Compared to ECG 05/07/2017 11:45:08 Atrial premature complex(es) no longer present Poor R-wave progression no longer present ST (T wave) deviation no longer present Electronically Signed On 05-12-2017 12:39:06 CDT by Cipriano Andersen [email or web address] <ELECTRONICALLY SIGNED> By: Cipriano Andersen MD, [facility] 05/12/17 1239 0704 0704 Cipriano Andersen MD, [facility] /EPI
--- NOTE | 2017-05-12 14:24 | CON ---
[address] [address] CONSULTATION Name: SHERI RUVALCABA Room: [address] IN M.R.#: [id number] Admission: 05/06/17 Attend Phys: Baljinder Stoll MD Discharge: Date of : 45 Report #: [id number] THIS REPORT FOR: //name// CC: Baljinder Quintana DO [facility] DATE OF SERVICE: 05/10/2017 REFERRING PHYSICIAN: Dr. Stoll. I have seen and examined and agreed with plan that has been outlined by our nurse practitioner, Sarah Thornton. However, given the patient's history of recent parietal infarct about 3 months ago, we will need narrows input as to whether or not the patient can undergo an upper endoscopy tomorrow. If okay with the same, we will proceed with the same. We will hold his aspirin and Plavix at this time, but not plan on doing any dilations. I reviewed the patient's laboratory test and there appears to be some evidence for some possible gastroparesis. He had rapid tachygastria then leveled out and his emptying scan redemonstrated 90% retention at 4 hours. We will proceed with upper endoscopy if okay with Neurology tomorrow and make further recommendations thereafter. <ELECTRONICALLY SIGNED> By: Milad Smith DO 05/12/17 1424 1820 2028Milad Smith DO /jerrell
--- NOTE | 2017-05-12 14:24 | CON ---
[address] [address] CONSULTATION Name: SHERI RUVALCABA Room: [address] IN .R.#: [id number] Admission: 05/06/17 Attend Phys: Baljinder Stoll MD Discharge: Date of : 45 Report #: [id number] THIS REPORT FOR: //name// CC: Baljinder Quintana DO DICTATED BY: Sarah [email or web address] DATE OF SERVICE: 05/10/2017 Please note at the time of this dictation, the patient was seen and physically examined by myself. REASON FOR CONSULTATION: Nausea and vomiting. HISTORY OF PRESENT ILLNESS: This is a 72-year-old male who has been experiencing nausea and vomiting for the last 10 days in which he has not been able to keep anything down. He denies any hematemesis or any loose bowels at this time. He states his bowels move daily or every other day and they are soft and formed with no evidence of any bright red blood or melena. The patient states he has had endoscopy studies done at the [facility], but cannot recall what they showed or how long ago they had been performed. The patient recently had a CVA back in 01/2017. He has been in and out of hospital with rehabilitation, pneumonia in March with chronic obstructive pulmonary disease and then aspiration pneumonia again and then he was placed in the rehab center following his last bout of pneumonia with treatment, and he was noticing while up there that he had increased shortness of breath during that time and was sent back down to the ICU for following. He is now back up on the floor. He is still very debilitated, but only requiring 2-1/2 liters of oxygen at this time. He continues to be having ongoing nausea and vomiting. They have been giving him antiemetics, which have helped some, but not completely. He did have a gastric emptying test done the other day, which showed 27% after the first hour and 27% after the second hour, 22% after the third and 19% after the fourth hour, which was read as normal. Within the first hour he was somewhat tachycardic, but then in the last hour he was noted to be slow. ALLERGIES: No known drug allergies. MEDICATIONS: Please see MAR. PAST MEDICAL HISTORY: Cerebrovascular accident, aspiration pneumonia and some chronic obstructive pulmonary disease. PAST SURGICAL HISTORY: Appendectomy, [place] [address] CONSULTATION Name: SHERI RUVALCABA Room: [address]#: [id number] Admission: 05/06/17 Attend Phys: Baljinder Stoll MD Discharge: Date of : 45 Report #: [id number] FAMILY HISTORY: Noncontributory. SOCIAL HISTORY: Prior to his hospitalization in January from his stroke he was drinking a fifth of vodka on a weekly basis and had been doing that for some time. Denies any tobacco use at this time or illegal drug use. REVIEW OF SYSTEMS: Twelve-point review of systems is essentially negative except what is mentioned in the HPI. PHYSICAL EXAMINATION: VITAL SIGNS: Temperature 36.9, pulse 107, respirations 21, blood pressure 169/81. HEART: Regular rate and rhythm. LUNGS: Diminished with a few crackles noted. ABDOMEN: Soft, positive bowel sounds in all 4 quadrants with no masses or tenderness noted. LABORATORY DATA: Hemoglobin 9.6, hematocrit 28.8, white count is 14 and platelets 296. Sodium 144, potassium 3.3, chloride 112, CO2 is 19, BUN is 26, creatinine is 4.4. PT was 10.5 and INR is 1.1 back in his hospitalization on 04/06/2017. Also noted that he failed his video swallow at this time and then GET that was noted in the H and P. IMPRESSION: 1. Nausea and vomiting for the last 10 days. 2. Chronic anemia. 3. Aspiration pneumonia, failed his video swallow. 4. Leukocytosis. 5. Anticoagulant therapy, Plavix and aspirin. 6. Alcohol abuse, drank a fifth of vodka prior to hospitalization in January. PLAN: 1. EGD tomorrow if okay with Neuro due to recent cerebrovascular accident. 2. We will need to hold his Plavix and aspirin in the a.m. and then can plan to proceed with EGD. 3. Further recommendations to be made after the procedure. 4. [facility]. Thank you for allowing us to participate in this patient's care. Please do not hesitate to call with any questions in regard to this consult. <ELECTRONICALLY SIGNED> By: Milad Smith DO 05/12/17 1424 1313 1350Milad Smtih DO /nt
[2017-05-12 15:06] LABS: BODY FLUID AMYLASE 19 U/L (()); BODY FLUID LDH 75 IU/L (()); BODY FLUID PROTEIN 1.3 g/dL (())
[2017-05-12 17:18] LABS: URINE BILIRUBIN NEGATIVE (Negative); URINE BLOOD NEGATIVE (Negative); URINE CLARITY CLEAR; URINE COLOR YELLOW; URINE GLUCOSE-RANDOM NEGATIVE (Negative); URINE KETONES NEGATIVE (Negative); URINE LEUKOCYTES TRACE (Negative); URINE NITRITE NEGATIVE (Negative); URINE PROTEIN TRACE (Negative); URINE UROBILINOGEN 0.2 E.U./dl (0.2-1.0)
[2017-05-12 17:31] VITALS: BP 126/56
[2017-05-12 17:31] LABS: HYALINE CASTS 0-3 Few /LPF (None Seen); MUCUS 4-6 Moderate strn/LPF (None Seen)
[2017-05-12 17:32] LABS: SQUAMOUS 0-3 Few /LPF (0-3)
[2017-05-12 17:33] LABS: AMORPHOUS URATES Few /LPF (None Seen); BACTERIA 1-9 Few /HPF (None Seen); URINE RBC 0-2 Rare /HPF (0-2); URINE WBC 6-15 Few /HPF (0-5)
--- NOTE | 2017-05-12 18:24 | NUR ---
PATIENT REMAINS A AND O X 4, FORGETFUL AT TIMES R SIDED WEAKNESS, H/O CVA SA/SR/ST O2 SAT 3L NC O2 SATS MID 90S POOR APPETITE DID DRINK SOME FLUID TODAY LAST BM T-2 RESENDIZ TO DD FOREIGN UO-350 CC UP WITH 1 ASSIST TO CHAIR TODAY IV 20 GA R AC IVF D51/2NS AT 75 CC/HR NO C/O PAIN CALL LIGHT IN REACH AND INSTRUCTION GIVEN AND FOLLOWED ORDERS TODAY FOR RENAL BX AND UA ABN LABS MONITORED HGB 8.9, K+ 3.5, CR 4.5
[2017-05-12 19:01] LABS: SOURCE THORACENTESIS
[2017-05-12 20:00] VITALS: BP 120/52
[2017-05-13 00:15] VITALS: BP 134/64
[2017-05-13 04:18] VITALS: BP 114/54
[2017-05-13 04:29] LABS: ABSOLUTE BASOPHILS 0.1 thou/uL (0.0-0.2); ABSOLUTE EOSINOPHILS 0.3 thou/uL (0.0-0.7); ABSOLUTE LYMPHOCYTES 1.2 thou/uL (0.8-5.3); ABSOLUTE NEUTROPHILS 7.9 thou/uL (1.6-8.1); BASOPHILS 0.7 %; EOSINOPHILS 2.9 %; HEMATOCRIT 26.5 % (42.0-52.0); HEMOGLOBIN 8.7 gm/dL (14.0-18.0); LYMPHOCYTES 11.3 %; MCH 28.4 pg (26.0-34.0); MONOCYTES 9.6 %; MPV 8.7 fl. (7.2-11.1); NUCLEATED RBCS 0 /100WBC; PLATELET COUNT* 277 thou/uL (150-400); POLYS 75.5 %; RBC 3.08 mil/uL (4.50-6.00); RDW-CV 14.7 % (10.5-14.5); WBC 10.4 thou/uL (4.0-11.0)
[2017-05-13 04:48] LABS: CALCIUM 8.2 mg/dL (8.5-10.1); CREATININE 4.4 mg/dL (0.6-1.3); POTASSIUM 3.2 mmol/L (3.5-5.1)
--- NOTE | 2017-05-13 06:18 | NUR ---
ASSUMED CARE OF PT AT 1930. NURSING ASSESSMENT COMPLETED AT START OF SHIFT, PT ON TELE MONITOR WITH HR IN THE 120'S AT START OF SHIFT. PT HR IN THE 110'S THROUGHT THE SHIFT, TRACING SINUS ARRHYTHMIA WITH PACS AND PVCS. PT DENIES PAIN THIS SHIFT, Q2H REPOSITIONING COMPLETED, IV FLUIDS INFUSING. CALL LIGHT WITHIN REACH.
--- NOTE | 2017-05-13 07:15 | NUR ---
CHANGE OF SHIFT, BEDSIDE REPORT GIVEN ASSUMED PATIENT CARE PATIENT SEEN IN BED, ASLEEP
[2017-05-13 08:00] VITALS: BP 144/69
[2017-05-13 11:00] VITALS: BP 118/52
[2017-05-13 15:30] VITALS: BP 166/81
--- NOTE | 2017-05-13 17:58 | NUR ---
PATIENT MORE LETHARGIC AND WITHDRAWN TODAY A AND O X 3-4, FORGETFUL SA/ST/SR LUNGS COARSE/DIM O2 3L NC O2 SAT MID 90S CLEAR/WHITE THICK SPUTUM YANKER SUCTION PRN POOR APPETITE MINIMAL ORAL FLUID RESENDIZ TO DD 300CC DARK YELLOW UO UP WITH 1 ASSIST TO CHAIR BR TURN Q 2HR WHEN IN BED NO C/O PAIN TODAY IV SITE R AC 20 GA IVF D5 1/2 NS AT 75CC/HR ABN LAB K+ 3.2, REPLACED K+ IVP PER RENAL, HGB 8.7, CR 4.4 CALL LIGHT IN REACH AND INSTRUCTION GIVEN AND FOLLOWED BED ALARM ON CONS NEURO, GI, RENAL, PULM, CARD
[2017-05-13 20:00] VITALS: BP 130/62
[2017-05-14 00:08] VITALS: BP 183/86
--- NOTE | 2017-05-14 01:26 | NUR ---
ASSUMED CARE AT 1999, ASSESSMENT CHARTED. PATIENT ALERT/ORIENTED X4, FORGETFUL AT TIMES, RESTING IN BED. DOWN TO CT SCAN AT THIS TIME PER ORDERS RECEIVED, STAFF AT SIDE. SUCTIONED PRN, ORAL CARE Q2H. DENIES PAIN OR NEEDS. PATIENT TURNED AND REPOSITIONED IN BED WITH WEDGES Q2H. MEDS PER APR. BED ALARM ON. CALL LIGHT WITHIN REACH, ENCOURAGED TO CALL FOR NEEDS.
[2017-05-14 04:14] VITALS: BP 151/67
[2017-05-14 04:59] LABS: ALBUMIN 2.4 g/dL (3.4-5.0); CALCIUM 8.7 mg/dL (8.5-10.1); CREATININE 4.3 mg/dL (0.6-1.3); PHOSPHORUS* 4.3 mg/dL (2.5-4.9); POTASSIUM 3.7 mmol/L (3.5-5.1)
[2017-05-14 08:30] VITALS: BP 173/92
[2017-05-14 12:15] VITALS: BP 158/74
--- NOTE | 2017-05-14 12:34 | CNG ---
[address] [address] CYTO-NONGYN REPORT PROCEDURE Name: BECK CROFT Room: [address] IN .R.#: [id number] Admission: 05/06/17 Date of : 45 Discharge: Report #: [id number] Path Case #: [id number] CYTOPATHOLOGY REPORT COLLECTION DATE: 05/11/2017 RECEIVED DATE: 05/11/2017 SUBMITTING PHYS: Dr. Ponce Martinez OTHER PHYS: Dr. Ryley Quintana CLINICAL HISTORY: Respiratory distress. J69.0, N17.0. SPECIMEN(S) RECEIVED: A.Pleural fluid, Left * * * * * * * * * * * * FINAL DIAGNOSIS: A. Pleural fluid, Left: - No malignant cells identified. -Mesothelial cells and few inflammatory cells are present. PATHOLOGIST: Asim Gudino M.D. REPORT ELECTRONICALLY SIGNED BY: Asim Gudino M.D. DATE/TIME: 05/14/2017 12:33 * * * * * * * * * * * * GROSS PATHOLOGY: A. Pleural fluid, Left: The specimen is submitted unfixed, labeled "Beck Croft". Received by the Cytology Department is 50 mL of cloudy yellow fluid out of a total volume of 1,450 ml's. One ThinPrep slide and a formalin fixed cell block were prepared. (clt 05.11.2017) FAMILY SUPPORT COORDINATOR(S): STACI Lema([facility] INITIAL CPT CODE(S): A; 88800, 09794 Professional services performed [place] [facility] [place] [address] Technical services performed by [facility] at [address] [place] [address]., [address] [address]. [facility] [address] [place] [address], [facility] [address] [place], [place] [address] [place] [address] CYTO-NONGYN REPORT PROCEDURE Name: BECK CROFT Room: [address] IN M.R.#: [id number] Admission: 05/06/17 Date of : 45 Discharge: Report #: [id number] Path Case #: [id number] PHONE: [phone] DIRECTOR: Prashanth Ayala M.D. * * * END OF REPORT * * *
[2017-05-14 13:07] LABS: BODY FLUID PH 7.9 (Not Estab.)
[2017-05-14 13:08] LABS: POTASSIUM 3.4 mmol/L (3.5-5.1)
--- NOTE | 2017-05-14 13:54 | NUR ---
ASSUMED CARE OF PT AT 0730. PT RESTING IN BED. PT A&0X3, FORGETFUL AND SLOW TO RESPOND. ULTRASOUND CALLED THIS AM AND PT TO BE OFF ASPIRIN AND PLAVIX FOR 7 DAYS. PT UNABLE TO HAVE RENAL BIOPSY TODAY PT HAD PLAVIX ON FRIDAY 05/12. WILL CONTINUE TO HOLD ASPIRIN AND PLAVIX. PT TRACING SA WITH PAC'S ON THE COTTON AGENT. RATE IN THE 130-140'S. PO METOPROLOL GIVEN. HEART RATE DOWN TO 110'S. DR CHICAS HERE TO SEE PT. BLOOD PRESSURE MEDICATIONS ADJUSTED. REFER TO EMAR. IVF CHANGED TO SODIUM BICARB WITH D5W. PT TO HAVE CXR TODAY AND EEG. PT COMPLAINS OF PAIN TO RIGHT KNEE. TREATED WITH SCHEDULED LIDOCAINE PATCH WITH PARTIAL RELIEF. PT ON 4L NC SAT 93%. PT DENIES ANY SHORTNESS OF BREATH. SPUTUM NEEDED. RESENDIZ TO DEPENDENT DRAINAGE WITH CLEAR YELLOW URINE. HOB TO BE UP 45 DEGREES. PT UP WITH 1-2 ASSIST AND WALKER. RIGHT SIDED WEAKNESS NOTED. AM ASSESSMENT CHARTED. MEDICATIONS PER MAR CRUSHED AND IN PUDDING. PT APPETITE VERY POOR. BOOST PUDDING BID. NO STRAWS. AT BEDSIDE THIS AFTERNOON. PT REPOSITIONED EVERY 2 HOURS FOR COMFORT. HOURLY ROUNDING OBSERVED. BED IN LOW POSITION. BED ALARM IN PLACE. FALL PRECAUTIONS IN PLACE. CALL LIGHT WITHIN REACH. WILL CONTINUE PLAN OF CARE.
--- NOTE | 2017-05-14 16:00 | NUR ---
Pt reports feeling the same. in room at bedside, still unclear as to what level of care Pt will need at dc, stated that she would like to see Pt go back to rehab, if possible. Rehab following.
[2017-05-14 16:03] VITALS: BP 156/72
--- NOTE | 2017-05-14 18:25 | NUR ---
No acute changes, patient not in distress. Patient increase to five liters O2. Patient appetite very poor. Patient vomited during shift. pt states he does not like pudding or applesauce. pt potassium back at 3.4. Dr notified for electrolyte protocol, awaiting call back at this time. continues to trace sa with pac's on the personnel monitor. rate improved to 110's throughout shift. Patient reponsition every two hours, hourly rounding observerd. Call light within reach, bed alerm placed.
--- NOTE | 2017-05-14 18:47 | NUR ---
THIS RN AGREES WITH THE CHARTING AND ASSESSMENT COMPLETED BY SENAIT RESENDIZ ON 05/14/17.
[2017-05-14 19:40] VITALS: BP 148/81
--- NOTE | 2017-05-14 20:00 | NUR ---
ASSUMED CARE AT 1940, ASSESSMENT CHARTED. PATIENT ALERT/ORIENTED X4, FORGETFUL AT TIMES, RESTING IN BED WITH FAMILY AT BEDSIDE. UP WITH ASSIST/WALKER. DENIES PAIN OR NEEDS. PATIENT TURNED AND REPOSITIONED IN BED WITH WEDGES Q2H. HS MEDS CRUSHED AND GIVEN IN ORANGE SHERBET, TOLERATING WELL. REFUSING SCD'S. BED ALARM ON. WILL MONITOR.
[2017-05-15] VITALS (13 sets, daily range): BP systolic 120–189; BP diastolic 42–91
--- NOTE | 2017-05-15 00:29 | NUR ---
PATIENT UP TO CHAIR AT THIS TIME PER REQUEST. AMBULATING WITH WALKER/STAFF. DENIES NEEDS. CHAIR ALARM ON. WILL MONITOR.
--- NOTE | 2017-05-15 03:38 | NUR ---
PATIENT FRUSTRATED AND YELLING AT THIS TIME. STATES WANTING TO GO HOME. REFUSING TO TAKE SCHEDULED MEDICATION AT THIS TIME. THREATENING TO HIT STAFF AND "PUT US IN MCC." ATTEMPTED TO RE-ORIENT PATIENT BUT UNSUCCESSFUL. BED ALARM ON. WILL MONITOR.
--- NOTE | 2017-05-15 04:08 | NUR ---
PATIENT REMOVING OXYGEN AND ATTEMPTING TO REMOVE IV. STAFF ATTEMPTING TO REPLACE OXYGEN BUT PATIENT SMACKING AWAY STAFF AND STATES "DON'T TOUCH ME OR I'LL PUNCH YOUR LIGHTS OUT!" DR. TURCIOS NOTIFIED, ORDERS RECEIVED AND NOTED. MEDS GIVEN PER APR. BED ALARM ON. WILL MONITOR.
--- NOTE | 2017-05-15 04:29 | NUR ---
PATIENT RESTING QUIETLY IN BED AT THIS TIME. BED ALARM ON. WILL MONITOR.
[2017-05-15 05:26] LABS: HEMATOCRIT 29.5 % (42.0-52.0); MCH 28.8 pg (26.0-34.0); MCHC 33.9 g/dL (28.0-37.0); MCV 85.1 fL (80.0-100.0); MPV 8.7 fl. (7.2-11.1); RBC 3.46 mil/uL (4.50-6.00); RDW-CV 15.4 % (10.5-14.5); WBC 14.5 thou/uL (4.0-11.0)
[2017-05-15 05:57] LABS: ALBUMIN 2.2 g/dL (3.4-5.0); CALCIUM 8.9 mg/dL (8.5-10.1); POTASSIUM 3.2 mmol/L (3.5-5.1); TOTAL BILIRUBIN 0.7 mg/dL (<0.1-1.0); TOTAL PROTEIN 6.5 g/dL (6.4-8.2)
--- NOTE | 2017-05-15 08:05 | NUR ---
BEDSIDE REPORT GIVEN. PATIENT RESTING IN BED, SATS ON 5L/NC: 87-88%. HIGH FLOW CANNULA PLACED ON AT 8L, SATS SLOWLY INCREASING TO 92%. BLOOD SUGAR CHECKED: 92%. VSS. RT NOTIFIED. MESSAGE SENT TO DR. CHICAS VIA [employer]. WILL MONITOR.
[2017-05-15 09:19] LABS: SOURCE THORACENTESIS
--- NOTE | 2017-05-15 09:29 | NUR ---
ASSUMED PATIN CARE THIS MORNING AT 7:15 RECEIVED REPORT FROM DAY SHIFT NURSE. ECHO IS CURRENTLY SLEEPING. COLOR APPEARS PALE , GRAYISH. OXYGEN SATURATION TAKEN . READING OF 85 AT 5 LITER NC. BLOOD SUGAR 92. ECHO IS DIAPHORETIC. OXYGEN SUPPLY RAISED TO 8 LITER HIGH FLOW. O2 SATURATION READING WENT UP TO 92 AT 8L NC. VITALS SIGNS WITHIN NORMAL LIMIT. RESPIRATORY THERAPY NOTIFIED OF OXYGEN CHANGES. DR CHICAS NOTIFIED FOR ORDERS FOR BIPAP AND ABG. . ORDER RECEIVED TO TRANFER PT TO ICU, BIPAP, ABG, STAT IVPUSH LASIX AND PO POTASSIUM. PER NEPHROLOGY REQUEST NEPHROLOGY NOTIFIED. AND OK GIVEN TO ADMINISTER LASIX AND POTASSIUM. PATIENT TRANSFERED TO ICU VIA BED. BELONGINGS BROUGHT ALONG. REPORT GIVEN AT BEDSIDE.
[2017-05-15 09:45] LABS: BE -3.3 mmol/L (-2 to +3); HCO3 19.6 mmol/L (22.0-26.0); PCO2 28.2 mmHg (35.0-45.0); PO2 62.6 mmHg (75.0-100.0); pH 7.459 (7.340-7.450)
[2017-05-15 10:10] LABS: ANA INTERPRETATION Positive (Negative)
--- NOTE | 2017-05-15 11:59 | NUR ---
RECEIVED REPORT FROM BRADFORD CANO. ASSESSMENT CHARTED. AFEBRILE. PT TRANSFER FROM TELE. NOW ON 8L HIGH FLOW NC. PT REFUSES TO EAT OR DRINK AT THIS TIME. WILL CONTINUE TO MONITOR.
--- NOTE | 2017-05-15 13:33 | NUR ---
THIS RN AGREES WITH THE ASSESSMENT AND CHARTING OF BRADFORD VO ON 05.15.17.
--- NOTE | 2017-05-15 14:12 | NUR ---
PT STATED SHE WANTS TO BE NOTIFIED OF ANY CHANGES IN PT CONDITION. IS DPOA. [facility] [phone] (CELL) [phone] (HOME). ALSO UPDATED PT MEDICAL/SURGICAL HX. PT HAS BEEN TREATED AT THE NM.
[2017-05-15 14:53] LABS: ALBUMIN 2.3 g/dL (3.4-5.0); CALCIUM 8.8 mg/dL (8.5-10.1); PHOSPHORUS* 3.6 mg/dL (2.5-4.9); POTASSIUM 3.3 mmol/L (3.5-5.1)
--- NOTE | 2017-05-15 16:03 | CON ---
[address] [address] CONSULTATION Name: SHERI RUVALCABA Room: [address] IN M.R.#: [id number] Admission: 05/06/17 Attend Phys: Baljinder Stoll MD Discharge: Date of : 45 Report #: [id number] THIS REPORT FOR: //name// CC: Baljinder Quintana DATE OF SERVICE: 05/15/2017 REQUESTING PHYSICIAN: Dr. Ga. INDICATION FOR CONSULTATION: Acute hypoxemic respiratory failure. HISTORY OF PRESENT ILLNESS: This is a 72-year-old gentleman. Past medical history includes a history of COPD. 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 The patient has had a stroke last fall. The patient is reported to have been treated for aspiration pneumonia subsequently. The patient's baseline creatinine is 1.0, as documented towards the beginning of April of this year. The patient subsequently has developed acute renal failure. His creatinine is now 4.0. The etiology of the patient developing acute renal failure is not fully defined at this time. He also appears to have fairly large infiltrates on recent imaging studies. He has been extensively treated with antibiotics. He currently is on Levaquin as well as Zosyn. He has received at least 5-6 days of vancomycin earlier as well. The patient has had a waxing and waning course since yesterday. There has been a decline in his mental status as well as oxygen needs. He, therefore, has been transferred to the ICU. The patient at this time is significantly drowsy, and therefore, is unable to provide further history or review of systems. PAST MEDICAL HISTORY: COPD, not on oxygen or prednisone previously. Previous PFTs not available. Recent stroke, as mentioned above. Baseline creatinine is normal. He is in acute renal failure at this time. There is a previous history of alcohol abuse, stroke last fall as discussed. The patient's last available echocardiogram is from 05/07/2017 and shows a left ventricular ejection fraction of 65% to 70% with a pulmonary artery systolic of 35-40. There is mild aortic sclerosis. SOCIAL HISTORY: The patient has an extensive history of smoking up to 2 packs a day at times for several decades, discontinued last fall. He has a history of heavy alcohol intake in the past. He is not reported to have had heavy amounts of alcohol recently. No known history of illegal drug use. PAST SURGICAL HISTORY: Appendectomy and hernia repair. CURRENT MEDICATIONS: List in [employer] reviewed. HOME MEDICATIONS: [facility] [address] CONSULTATION Name: SHERI RUVALCABA Room: [address]#: [id number] Admission: 05/06/17 Attend Phys: Baljinder Stoll MD Discharge: Date of : 45 Report #: [id number] ALLERGIES: No known drug allergies. PHYSICAL EXAMINATION: GENERAL: The patient is markedly drowsy, responding only to painful stimuli. VITAL SIGNS: Pulse of 105 and a blood pressure of 141/72. He is saturating 96%. He is on 8 liters nasal cannula. His respiratory rate is 16 with a temperature of 37.0. HEENT: Head is normocephalic and atraumatic. The patient did not cooperate with examination of his pupils. NECK: Does not show raised JVP. CHEST: Breath sounds bilaterally equal, decreased. I do not hear any added sounds. HEART: Irregular. There is no murmur. ABDOMEN: Soft and nontender. EXTREMITIES: Lower extremities show no edema and no calf tenderness. SKIN: Dry and intact. NEUROLOGICAL EXAMINATION: He did move all extremities to pain. A detailed neurological examination is not possible at this time. The patient's mental status is as mentioned above. LABORATORY DATA: The patient's chest x-ray is reviewed and recent CT abdomen and pelvis is also reviewed. In summary, it shows bilateral infiltrates. There is also evidence of fluid overload. The patient's lab work is consistent with acute renal failure, in [facility] reviewed. Hematology, chemistries as well as arterial blood gases and pleural fluid results from recent thoracentesis are in [facility] and these are reviewed. The patient's JONA is noted to be positive. ASSESSMENT AND PLAN: 1. Acute hypoxemic respiratory failure with a history of chronic obstructive pulmonary disease. We will continue current therapy. We will go ahead and add Solu-Medrol. 2. Aspiration pneumonia/pulmonary infiltrates. We will continue current antibiotics. Recommend strict aspiration precautions. I recommend keeping the patient n.p.o. unless he is fully awake and is able to fully sit up. Recent abnormal video swallow is noted. 3. Pleural effusions. These are transudative. Recent thoracentesis is as noted, related to fluid overload secondary to acute renal failure. 4. Acute renal failure. The patient's baseline creatinine is 1.0. He currently has acute renal failure with fluid overload and metabolic acidosis, etiology not fully defined yet. Nephrology service on the case. 5. Altered mental status. Neurology service is on the case. I will try to get more information regarding whether the patient's altered mental status changes today are an acute change. If these are an acute change, then I recommend obtaining a CT head. If the CT head is performed, then we will perform a CT chest without contrast at the same time as well. [facility] [address] [place] [address] CONSULTATION Name: SHERI RUVALCABA Room: [address] IN M.R.#: [id number] Admission: 05/06/17 Attend Phys: Baljinder Stoll MD Discharge: Date of : 45 Report #: [id number] 6. A. Fib. Rate controlled, duration not known to me, defer f/u to primary service The patient remains critically ill at this time. Total time spent providing critical care to this patient today is 36 minutes. <ELECTRONICALLY SIGNED> By: Refugio Martínez MD 05/15/17 1603 1237 [id number] Martínez MD /nt
--- NOTE | 2017-05-15 17:13 | NUR ---
GAVE REPORT TO BRADFORD CANO. ASSESSMENTS CHARTED. AFEBRILE. ALL QUESTIONS ANSWERED.
--- NOTE | 2017-05-15 18:27 | NUR ---
PT ORIENTED TO PERSON AND PLACE. PT WILL SAY NONSENSICAL THINGS LIKE THIS NURSE IS TRYING TO TAKE HIS KIDNEYS OR HE WANTS SHOES OFF EVEN WHEN SHOWED FEET. TELE AFIB, HR IRREGULAR, 100'S-120'S. PT DENIES SOA, RESPIRATIONS EVEN AND UNLABORED AT REST, O2 SAT 95 5L O2 NC. DAUGHTER AT BEDSIDE, ATTEMPTED TO ANSWER DAUGHTER'S QUESTIONS. S.O. WANTS TO TALK WITH DR IN AM ABOUT POC. PT REFUSED TO EAT DINNER OR TAKE PO MEDS TONIGHT. PT WILL SIP ON CUP OF COFFEE.
--- NOTE | 2017-05-15 19:00 | NUR ---
ORAL CARE COMPLETED
[2017-05-16] VITALS (11 sets, daily range): BP systolic 106–153; BP diastolic 60–669
[2017-05-16 06:32] LABS: ALBUMIN 2.3 g/dL (3.4-5.0); CALCIUM 8.5 mg/dL (8.5-10.1); CREATININE 4.1 mg/dL (0.6-1.3); PHOSPHORUS* 4.8 mg/dL (2.5-4.9); POTASSIUM 3.2 mmol/L (3.5-5.1)
--- NOTE | 2017-05-16 06:45 | NUR ---
SLOW PROGRESSION TOWARDS GOALS, REMAINS ALERT TO SELF ONLY, DIFFICULT TO REORIENT TO PLACE, TIME, AND SITUATION, REFUSING BIAP, OXYGEN HIGH FLOW 5L PER NC SA02 =>90%, AFIB RATE INCREASED AT TIMES 150'S NON-SUBSTAINED, METOPROLOL 5MG IVP GIVEN X1 FOR HYPERTENSION WITH SOMEWHAT HELPFUL RESULTS, INCONTINENT OF STOOL X1, AMBER CARE DONE, BARRIER CREAM APPLIED. CALL LIGHT REMAINS IN REACH, BED REMAINS IN LOW AND LOCKED POSITON.
--- NOTE | 2017-05-16 08:08 | NUR ---
PT CONFUSED THIS AM, ATTEMPTING TO GET OUT OF BED, REPEATED REORIENTATION. PT ORIENTED TO PERSON ONLY. PT REFUSES BIPAP. RESPIRATIONS EVEN AND UNLABORED, OCCASIONAL CONGESTED COUGH. ORAL CARE FOR DRIED SECRETIONS IN MOUTH. PT REFUSES TO EAT OR DRINK CURRENTLY.
--- NOTE | 2017-05-16 09:55 | NUR ---
meds crushed and mixed with oatmeal. pt refused. pt encouraed to eat pudding. pt refused. pt is taking sips of milk and coffee.
--- NOTE | 2017-05-16 11:02 | NUR ---
PT.TRANSFERRED TO ICU YESTERDAY FOR INCREASE IN O2 REQUIREMENTS. IS BACK TO 4L THIS AM. IS CONFUSED TODAY. ORIENTED TO PERSON. REORIENTED TO PLACE. HE SAID HE THOUGHT 2 PUPPY'S WERE FLOATING AROUND AND BARKING. EXPLAINED DIFFERENT NOISES IN ICU HE MIGHT BE HEARING AND THINKING THEY ARE PUPPIES IE:ALARMS,SQUEAKY CARTS, ETC. CM WILL FOLLOW.
--- NOTE | 2017-05-16 13:48 | CON ---
[address] [address] CONSULTATION Name: SHERI RUVALCABA Room: [address] IN M.R.#: [id number] Admission: 05/06/17 Attend Phys: Baljinder Stoll MD Discharge: Date of : 45 Report #: [id number] THIS REPORT FOR: //name// CC: Baljinder Quintana DATE OF SERVICE: 05/08/2017 NEPHROLOGY CONSULTATION CONSULTING PHYSICIAN: Dr. Swanson. REASON FOR CONSULTATION: Acute renal failure. REASON FOR ADMISSION: Shortness of breath. HISTORY OF PRESENT ILLNESS: This is a very pleasant 72-year-old male with history of CVA back in January 2017, hospitalization for pneumonia in March with COPD and aspiration pneumonia and then admitted to rehab at [facility] with a left-sided pneumonia again and was receiving treatment for that. Etiology of pneumonia being aspiration, developed shortness of breath and that is why, he was transferred from [facility] to the ICU the day before yesterday. The patient's creatinine was 1.0 on 05/02/2017, then worsened to 1.7 on 05/04/2017 and then worsened to 4.1 and that is why, Nephrology was consulted. So, I initially saw the patient on the rehab floor and the next day, the patient got admitted to the ICU, and I also followed the patient over there and this is just a new consult because the patient was in the ICU. The patient is still in the ICU and his creatinine worsened to 4.4 yesterday, which is 05/08/2017 and then later 4.7 later that afternoon. Because of shortness of breath, he was given Lasix because it was presumed that he has fluid overload, but a CT chest showed bilateral pleural effusions as well as lingular infiltrate, which he had from before. He is getting antibiotics in the form of Levaquin. His breathing is much better. Initially, he required BiPAP. Now, he is on 2.5 liters nasal cannula, he does feel a little bit nauseated. His swallow study was done yesterday and he is able to take some diet today, but he is going for gastric emptying study. I maintained him on IV fluids after his dose of Lasix. His creatinine is not getting better, 4.6 today. His sodium is up to 148. The patient is oriented right now, just feels very tired and nauseated. REVIEW OF SYSTEMS: He is having nausea. Otherwise, he is oriented and he was having retention of urine and has a Avalos in place. Other review of systems done, negative. PAST MEDICAL HISTORY: Includes history of alcohol dependence in the past, ataxia, aspiration pneumonia, [place] [address] CONSULTATION Name: SHERI RUVALCABA Room: [facility] IN .R.#: [id number] Admission: 05/06/17 Attend Phys: Baljinder Stoll MD Discharge: Date of : 45 Report #: [id number] PAST SURGICAL HISTORY: Includes history of appendectomy and other surgical history is reviewed. ALLERGIES: No known drug allergies. CURRENT INPATIENT MEDICATIONS: Reviewed. SOCIAL HISTORY: No history of use of alcohol at home before his hospitalization. PHYSICAL EXAMINATION: VITAL SIGNS: Blood pressure is 161/80, pulse rate is 96, temperature 36.9, and pulse ox is 93% on 2.5 liters nasal cannula. GENERAL: He is very tired. He is oriented. HEAD, EYES, EARS, NOSE AND THROAT: Mucous membranes are very dry. NECK: No JVD. CHEST: Bilateral diminished breath sounds. No crackles heard or wheezing. CARDIOVASCULAR: S1, S2 normal. No murmurs heard. ABDOMEN: Soft, nondistended and bowel sounds are diminished. EXTREMITIES: He has currently no lower extremity edema, symmetrical extremities. NEUROLOGICAL FUNCTION: Gross neurological function, seems to be intact. PSYCHIATRIC: Mood and affect seems to be normal. LABORATORY DATA: From today, sodium is 148, but creatinine is 4.6 and potassium was 3.2. Other labs are reviewed. IMAGING: Chest CT was reviewed. ASSESSMENT AND PLAN: 1. Acute renal failure, which is because of dehydration and urinary retention: The patient was retaining 400 mL of urine the day before yesterday and that is when Avalos catheter was placed and he was also started on Flomax. His creatinine is now slowly getting better to 4.6 today. Maintain him on IV fluids and increase the D5 with half normal saline to 100 mL an hour. If his breathing becomes a problem again, he might need a thoracentesis for his pleural effusions. He has no evidence of pulmonary edema. Strict I's and O's. There is no acute need for dialysis, but we will continue to monitor him for any developing need. He had about 1.95 liters of urine output in the last 24 hours. 2. Hypokalemia, that is likely because of poor oral intake and good urine output and this is going to be replaced with 40 mEq of potassium chloride. 3. Bilateral pleural effusions as well as likely hospital-acquired pneumonia: The patient is getting Levaquin for that and that should be dosed for his decreased renal function, likely will need it every 48 hours. 4. Urinary retention: He has been placed on Flomax. This is likely because of [facility] [address] [place] [address] CONSULTATION Name: SHERI RUVALCABA Room: [address] IN .R.#: [id number] Admission: 05/06/17 Attend Phys: Baljinder Stoll MD Discharge: Date of : 45 Report #: [id number] debilitation. His urine output is good. If he fails his voiding trial after a few days, the Urology should be consulted. 5. Hyponatremia: This is likely because of intravascular volume depletion. We will increase his D5 half normal saline to 100 mL an hour. Thank you for this consultation. I will continue to follow along with you. <ELECTRONICALLY SIGNED> By: Gem Peterson MD 05/16/17 1348 [id number] Peterson MD /nt
--- NOTE | 2017-05-16 18:26 | NUR ---
PT MORE CONVERSATIONAL THIS AFTERNOON AND MORE ORIENTED THAN BEFORE. PT ABLE TO SWALLOW WITHOUT DIFICULTY WITH SWALLOWING PROMPTS. PT ALSO AGREED TO EAT DINNER. PT BECAME AGITATED WHEN S.O. VISITED AND HR WENT UP TO 170'S. ADDRESSED BY CARDIOLOGY GROUP ROOMS COORDINATOR. NO OTHER C/O. PT CURRENTLY APPEARS COMFORTABLE.
--- NOTE | 2017-05-16 22:54 | NUR ---
PULSE WAS RUNNING FROM 130-170. GAVE METOPROL 5MG IV PUSH.
[2017-05-17] VITALS (11 sets, daily range): BP systolic 94–139; BP diastolic 38–93
[2017-05-17 04:17] LABS: HEMATOCRIT 26.9 % (42.0-52.0); HEMOGLOBIN 8.9 gm/dL (14.0-18.0); MCH 28.2 pg (26.0-34.0); MCV 85.4 fL (80.0-100.0); MPV 8.5 fl. (7.2-11.1); RBC 3.15 mil/uL (4.50-6.00); WBC 12.1 thou/uL (4.0-11.0)
--- NOTE | 2017-05-17 04:33 | NUR ---
ASSESSMENT AND VS OBTAINED, SEE CHARTING. CORRECTIONAL PROBATION OFFICER ON AND TRACING A FIB. 2300, PT RECIEVED METOPROLOL 5 MG FOR HR SUBSTAINING IN THE 130-140. AFTER RECIEVEING THAT HR WENT DOWN TO 88-100. PT HAS HAS SOME HR BETWEEN 130-150 BUT IT CAME DOWN WITH PT RELAXING. PT HAS BEEN UP ALL NIGHT. HAD TO SIT OUTSIDE THR SO THAT PT WOULD STAY IN BED AND NOT TAKE OUT HIS IV'S AND RESENDIZ.
[2017-05-17 04:42] LABS: ALBUMIN 2.2 g/dL (3.4-5.0); CALCIUM 8.2 mg/dL (8.5-10.1); CREATININE 3.9 mg/dL (0.6-1.3); MAGNESIUM 1.7 mg/dL (1.8-2.4); TOTAL BILIRUBIN 0.6 mg/dL (<0.1-1.0); TOTAL PROTEIN 5.6 g/dL (6.4-8.2)
--- NOTE | 2017-05-17 12:00 | NUR ---
PT ARRIVED TO ROOM 220 AT APPROX 1040. PT PLACED ON TELE MONITOR, TRACING AFIB ON THE MONITOR. VSS, PT DENIES PAIN. ALERT TO SELF ONLY. PT HAS NOT ATTEMPTED TO USE CALL LIGHT. FALL PRECAUTIONS IN PLACE. WILL CONTINUE TO MONITOR.
--- NOTE | 2017-05-17 16:29 | NUR ---
THIS AFTERNOON PTS HR IN THE 160'S AFIB. SPOKE TO PHYLLIS ASSEMBLER FILTERS, NO NEW ORDERS AT THE TIME. AT APPROC 1600 PT C/O CHEST PAIN/PRESSURE. STAT EKG OBTAINED SHOWING AFIB. PT PLACED ON BIPAP. HR STARTING TO DECREASE. PT STATES CHEST PAIN IS BETTER AFTER PLACED ON BIPAP. PTS DTR AT BEDSIDE. PT IS SLEEPING AT THIS TIME. WILL CONTINUE TO MONITOR.
--- NOTE | 2017-05-17 19:10 | CON ---
[address] [address] CONSULTATION Name: SHERI RUVALCABA Room: [address] IN M.R.#: [id number] Admission: 05/06/17 Attend Phys: Baljinder Stoll MD Discharge: Date of : 45 Report #: [id number] THIS REPORT FOR: //name// CC: Baljinder Quintana DATE OF SERVICE: 05/11/2017 HISTORY OF PRESENT ILLNESS: This is a 72-year-old male patient who is unable to provide any reliable history. I reviewed this patient's records and talked to the patient's significant others. They indicated that this patient has been on the combination of aspirin and Plavix for a long period of time, looks like he is on it for several years and the reason for this combination antiplatelet appeared to be vascular insufficiency in the lower extremities according to the significant other. According to the significant other, the patient was admitted to [facility] for a stroke. However, the symptom of the stroke was that the patient was lethargic and there does not appear to be any focal neurological deficits. I reviewed those records and this patient was seen by Dr. Pacheco, the neurologist, who was covering [place] that time and reviewing the records from that admission in January. It looks like this patient had an MRI of the brain, which showed a question of a stroke that time, but the findings were subtle. There was another MRI done in this patient in March of 2017 and that does not show any stroke. This patient did have an MRA of the head and neck and that does show mild stenosis on the left side. The patient's quality of the life was not very great even prior to this admission. It looks like he was having repeated falls for a long time, but it did deteriorate after this admission. It looks like there was at least some cognitive deteriorations and the patient has not done very well since then. He is going to have a GI procedure and a Neurology consultation was requested to see if he can be taken off aspirin and Plavix for the GI procedure. We will try to talk to the admitting doctor as well as a GI doctor about that. REVIEW OF SYSTEMS: Also indicate that this patient also had renal problems and he is being followed by Renal. This time, he has been admitted for cough and congestion and possible aspiration pneumonia. This patient has a history of heavy alcoholism in the past and family indicated that he may be having alcohol related falls. He has also a history of nicotine abuse. He had some ulcer surgeries. This was the patient's relevant 14-point review of system, which was carried out. PAST MEDICAL HISTORY: Positive for minor stroke. FAMILY HISTORY: Negative [place] early [place] [address] CONSULTATION Name: SHERI RUVALCABA Room: [address] IN [facility]#: [id number] Admission: 05/06/17 Attend Phys: Baljinder Stoll MD Discharge: Date of : 45 Report #: [id number] SOCIAL HISTORY: He has a history of smoking and drinking alcohol. PHYSICAL EXAMINATION: NEUROLOGICAL: Indicate he is alert. He is responsive. He can follow simple commands. He does not know what date it is, but he knew what month it is. His memory is quite poor and I suspect that is his baseline. His cooperation with the examination was not very good but I do not see any focality on cranial nerve examination, which was carried out from 2 through 12. Looks like he can move all four extremities. His reflexes are symmetrical. His tone is symmetrical. His position sense is intact. He does have some abnormality of [id number], but I am not sure he does it properly. EXTREMITIES: He does not have any marked edema, cyanosis or jaundice. GENERAL: He is moderately well-built individual who does not have any dysmorphic features of eyes, ears and face. VITAL SIGNS: His blood pressure is 136/73, respirations 18, pulse is 123 and temperature is 97.9. RESPIRATORY: He is having some rhonchi on both sides, but he was not in marked respiratory distress. CARDIAC: Examination is unremarkable. RADIOLOGICAL DATA: He did have a chest CT done. IMPRESSION: A tiny cerebrovascular accident in this patient with minor carotid stenosis. Neurology consultation is being requested to see if aspirin or Plavix can be stopped for a few days that all this carries some risk but if it needs to be done, it can be done. Aspirin and Plavix antiplatelet effect lasts for 5 days and if it needs to be discontinued for less than that, that will be acceptable. I did discuss with the patient and the patient's significant others, the problem associated with stopping the aspirin and Plavix even for a few days but I am not sure he understands that but the significant others do, but both of them agreed to proceed with that. I did not order any workup in this patient because the patient appeared to be his baseline and his quality of the life looks very poor and he does appear to have advanced cognitive deficit and he had MRI late last year and in March again. Please call us if in case there is any question or want us to follow. <ELECTRONICALLY SIGNED> By: Laron Blancas MD 05/17/17 1910 [id number] Blancas MD /jerrell
--- NOTE | 2017-05-17 19:50 | NUR ---
WHEN REVIEWING UTILITY PERSON, A RUN OF TORSADES WAS NOTED AT 1620. DR TURK NOTIFIED. NO NEW ORDERS RECIEVED. PT RESTING COMFORTABLY AT THIS TIME WITH BIPAP IN PLACE. PT ATTEMPTED TO WEAR NC O2 BUT SATS DROPPED INTO THE 80'S. BP LOW BUT STABLE AT THIS TIME. PTS DTR IN THIS EVENING, EXPRESSES CONCERNED ABOUT PLAN OF CARE, WANTS TO SPEAK TO THE DR TOMORROW OR SAT. DISCUSSED DPOA PAPERS WITH PT AND DPOA, QUESTIONS ANSWERED. FALL PRECATUIONS IN PLACE, RESENDIZ DRAINING YELLOW URINE. TURNED Q2 HR. HOURLY ROUNDING DONE. REPORT GIVEN TO MARIBEL FELDER.
[2017-05-18] VITALS (8 sets, daily range): BP systolic 86–135; BP diastolic 48–72
[2017-05-18 05:04] LABS: HEMATOCRIT 27.6 % (42.0-52.0); HEMOGLOBIN 9.1 gm/dL (14.0-18.0); MCH 28.2 pg (26.0-34.0); MCHC 33.1 g/dL (28.0-37.0); MCV 85.2 fL (80.0-100.0); MPV 8.8 fl. (7.2-11.1); RBC 3.25 mil/uL (4.50-6.00)
[2017-05-18 05:13] LABS: ALBUMIN 2.3 g/dL (3.4-5.0); CALCIUM 8.6 mg/dL (8.5-10.1); CREATININE 3.7 mg/dL (0.6-1.3); MAGNESIUM 2.1 mg/dL (1.8-2.4); PHOSPHORUS* 3.8 mg/dL (2.5-4.9); POTASSIUM 3.3 mmol/L (3.5-5.1)
--- NOTE | 2017-05-18 05:28 | NUR ---
END SHIFT: PT MORE ALERT THIS EVENING. SITTING UP IN BED, TOLERATED BROTH, PEACHES AND DECAF COFFEE. HR RANGED FROM AFIB-SA WITH PVC'S-SVT FROM 60'S-180'S AT TIMES. PT WORE BIPAP MOST OF EVENING. NO COMPLAINTS OF PAIN. PERIODS OF CONFUSION NOTED. CURRENTLY OFF BIPAP AND TOLERATING 5-7L NC. RESENDIZ DRAINING ADEQUATE. WHEN PATIENT IS SLEEPING HR IS MORE STABLE AND STAYS IN THE 80'S RANGE. IVF INFUSING WITHOUT DIFFICULTY- TOLERATED IV POTASSIUM. VSS. SAFETY PRECAUTIONS IN PLACE. WILL CONT TO MONITOR.
--- NOTE | 2017-05-18 06:53 | NUR ---
PT HAS BECOME INCREASINGLY CONFUSED OVER THE LAST 15 MIN. UNABLE TO EASILY RE-ORIENT. HE IS PULLING ON TUBES AND LINES AND CATHETER. HE IS ALSO ASKING ME TO CALL THE POLICE. PT HAS BECOME ALIGHTLY AGGRESSIVE IN NATURE- GRABBING AT NURSES AND TRYING TO HIT. WILL CONT TO CLOSELY MONITOR.
[2017-05-18 09:09] LABS: ANA INTERPRETATION Positive (())
--- NOTE | 2017-05-18 11:02 | EKG ---
[place] [address] ELECTROCARDIOGRAM REPORT Name: SHERI RUVALCABA Room: [address] ADM IN M.R.#: [id number] Admission: 05/06/17 Attend Phys: Baljinder Stoll MD Discharge: Date of : 45 Report #: [id number] THIS REPORT FOR: //name// [facility] Test Date: 2017-05-17 Test Time: 15:50:36 Pat Name: SHERI RUVALCABA Department: Room: [address] Gender: M Marketing Secretary: TSUH : 1945 Requested By: Baljinder Stoll Order Number: [id number] Reading MD: Cipriano Andersen Measurements Intervals [place] Rate: 131 P: MD: QRS: 50 QRSD: 99 T: 199 QT: 284 QTc: 420 Interpretive Statements Atrial fibrillation Paired ventricular premature complexes Probable LVH with secondary repol abnrm Anterior ST elevation, probably due to LVH Compared to ECG 05/12/2017 07:04:56 Ventricular premature complex(es) now present Left ventricular hypertrophy now present ST (T wave) deviation now present Sinus tachycardia no longer present Electronically Signed On 05-18-2017 11:02:27 CDT by Cipriano Andersen [email or web address] <ELECTRONICALLY SIGNED> By: Cipriano Andersen MD, FACC 05/18/17 1102 1550 1550 Cipriano Andersen MD, FAC /EPI
[2017-05-18 16:21] LABS: BF RBC 5485 /mm3; TOTAL CELL COUNT 255 /mm3
[2017-05-18 16:29] LABS: TOTAL VOLUME 1050 ml
[2017-05-18 16:30] LABS: BF OTHER CYTO TO FOLLOW; CLARITY HAZY; COLOR AMBER
[2017-05-18 17:16] LABS: SOURCE THORACENTESIS
[2017-05-18 17:17] LABS: BF LYMPHOCYTES 73 %; BF MONOCYTES 5 %; BF POLYS 22 %
--- NOTE | 2017-05-18 18:26 | NUR ---
ASSUMED PT CARE AT 0730, FULL ASSESMENT DONE CHARTED. PT ORIENTED TO SELF, PLACE, SITUATION. THIS AM PT STATES HE "SEES THE DEVIL".PT CALM BUT APPEARS UPSET BY THE HALLUCINATION. PT WEAK, ON 8LO2 AND BIPAP PRN. PT HAD BILATERAL THORACENTESIS TODAY. 1L FLUID DRAINED FROM EACH SIDE. PT APPEARS MORE COMFORTABLE AND COHERENT AFTER THE PROCEDURE. HE DID EAT A LITTLE BREAKFAST BUT NOT MUCH FOR LUNCH OR DINNER. PT DOES DRINK COFFEE AND BROTH. PT TURNED Q 2 HR, BOTTOM RED BUT BLANCHES. PT PULLED IV OUT TODAY, NEW IV STARTED TO RIGHT FA.PTS BP LOW THIS AM, GAVE PT ALBUMIN PER DR MALDONADO AFTER THORACENTESIS. FALL PRECATUIONS IN PLACE. BED ALARM ON. PT DOES NOT ATTEMPT TO USE CALL LIGHT. SPOKE TO PTS DTR AND UPDATED HER ON PLAN OF CARE.
[2017-05-18 19:00] LABS: SOURCE THORACENTESIS
[2017-05-19 04:09] VITALS: BP 120/64
--- NOTE | 2017-05-19 04:55 | NUR ---
END SHIFT: PT WAS UP MOST OF THE NIGHT. VERY RESTLESS. BIPAP VS 10L HF NC. PT IS VERY WEAK. ORIENTED TO SELF ONLY. WAS CONFUSED MOST OF SHIFT- UNABLE TO EASILY RE-ORIENT. AFIB. RATE JUMPED IN THE 170'S WHICH REQUIRED PRN IV METOPROLOL X1, OTHERWISE RATE CONTROLLED. NO COMPLAINTS OF PAIN. IVF INFUSING WITHOUT DIFFICUTLY. RESENDIZ REMAINS BLOOD TINGED. SAFETY PRECAUTIONS IN PLACE. CALL LIGHT IN REACH. WILL CONT TO MONITOR.
[2017-05-19 05:05] LABS: HEMATOCRIT 27.8 % (42.0-52.0); HEMOGLOBIN 9.4 gm/dL (14.0-18.0); MCH 28.8 pg (26.0-34.0); MCV 84.7 fL (80.0-100.0); MPV 8.9 fl. (7.2-11.1); NUCLEATED RBCS 0 /100WBC; PLATELET COUNT* 337 thou/uL (150-400); RBC 3.28 mil/uL (4.50-6.00); RDW-CV 15.1 % (10.5-14.5); WBC 16.6 thou/uL (4.0-11.0)
[2017-05-19 05:21] LABS: CALCIUM 8.8 mg/dL (8.5-10.1); CREATININE 3.6 mg/dL (0.6-1.3); MAGNESIUM 2.1 mg/dL (1.8-2.4); POTASSIUM 3.7 mmol/L (3.5-5.1)
[2017-05-19 06:12] LABS: ABSOLUTE LYMPHOCYTES 1.3 thou/uL (0.8-5.3); ABSOLUTE MONOCYTES 0.5 thou/uL (0.0-1.2); ABSOLUTE NEUTROPHILS 14.8 thou/uL (1.6-8.1); ATYPICAL LYMPHS 1 %
[2017-05-19 06:13] LABS: PLATELET ESTIMATE ADEQUATE
[2017-05-19 08:03] VITALS: BP 127/74
[2017-05-19 11:28] VITALS: BP 129/70
[2017-05-19 13:07] VITALS: BP 119/52
[2017-05-19 16:22] VITALS: BP 125/62
--- NOTE | 2017-05-19 18:22 | NUR ---
ASSUMED CARE OF PT AT 0730. PT CONTINUES TO BE ALERT X1 TO SELF. PT LETHARGIC TODAY AND HAS REFUSED TO WORK WITH THERAPY OR EAT ANYTHING TODAY HE STATED HE JUST WANTS TO SLEEP. PT EDUCATED ON GOALS FOR TREATMENT AND FOLLOWING THE POC. PT TRACING SA/A. FIB. ON THE MONITOR AND VSS ON 6L O2 VIA HIGH FLOW CANNULA. PT DID DRINK THREE BOOST DRINKS FOR THIS NURSE THROUGH THE DAY. NURSIGN WILL CONTINUE TO MONITOR.
[2017-05-19 20:00] VITALS: BP 139/68
[2017-05-20 00:30] VITALS: BP 125/68
[2017-05-20 02:06] LABS: BODY FLUID LDH 45 IU/L (()); BODY FLUID PROTEIN 1.1 g/dL (())
[2017-05-20 02:06] LABS: BODY FLUID LDH 66 IU/L (()); BODY FLUID PROTEIN 1.2 g/dL (())
--- NOTE | 2017-05-20 03:14 | NUR ---
ALERT AND ORIENTED X 1-2, CONFUSED OF PLACE AND TIME. AGITATION, COMBATIVENESS WITH CARES. 3MG OF HALDOL ORDERED GIVEN. TURN EVERY 2 HOURS, FLUIDS RUNNING AT 80 HOUR. DENIES COMPLAINTS OF PAIN. REFUSED BIPAP, RESP NOTIFIED. BED IN LOW POSITION, CALL LIGHT IN REACH. BED ALARM OM
[2017-05-20 04:13] VITALS: BP 145/76
[2017-05-20 04:36] LABS: ABSOLUTE LYMPHOCYTES 0.6 thou/uL (0.8-5.3); ABSOLUTE MONOCYTES 0.4 thou/uL (0.0-1.2); ABSOLUTE NEUTROPHILS 10.2 thou/uL (1.6-8.1); BASOPHILS 0.1 %; HEMATOCRIT 24.8 % (42.0-52.0); HEMOGLOBIN 8.3 gm/dL (14.0-18.0); LYMPHOCYTES 5.1 %; MCH 28.3 pg (26.0-34.0); MCHC 33.6 g/dL (28.0-37.0); MCV 84.1 fL (80.0-100.0); MONOCYTES 3.3 %; MPV 9.2 fl. (7.2-11.1); NUCLEATED RBCS 0 /100WBC; POLYS 91.5 %; RBC 2.94 mil/uL (4.50-6.00); RDW-CV 14.6 % (10.5-14.5); WBC 11.1 thou/uL (4.0-11.0)
[2017-05-20 04:44] LABS: PLATELET COUNT* 248 thou/uL (150-400)
[2017-05-20 05:04] LABS: ALBUMIN 2.2 g/dL (3.4-5.0); CALCIUM 8.2 mg/dL (8.5-10.1); CREATININE 3.4 mg/dL (0.6-1.3); POTASSIUM 3.5 mmol/L (3.5-5.1); TOTAL BILIRUBIN 0.6 mg/dL (<0.1-1.0); TOTAL PROTEIN 5.5 g/dL (6.4-8.2)
--- NOTE | 2017-05-20 06:23 | NUR ---
PATIENT IS SLEEPING MOST OF NIGHT AFTER AGITATIVE MOMENT LAST NIGHT. SATURATION 90S ON 4 LITERS O2, TELE, NSR, NO SIGN OF DISTRESS, CONT. TO TURN, ONLY ONE LOOSE STOOL LAST NIGHT.
[2017-05-20 08:15] VITALS: BP 139/57
[2017-05-20 11:36] VITALS: BP 139/69
[2017-05-20 15:29] VITALS: BP 89/51
--- NOTE | 2017-05-20 18:33 | NUR ---
ASSUMED PT CARE AT 0730, FULL ASSESMENT DONE CHARTED. PT ORIENTED TO SELF THIS AM, MORE ALERT THIS EVENING. PT ON BIPAP THIS AM DUE TO RECIEVING HALDOL OVERNIGHT. PT PLACED ON 6L HIGH FLOW NC. PTS FRIEND LATIA IN TO VISIT THIS AFTERNOON. HE DENIES PAIN. RESENDIZ IN PLACE DRAINING YELLOW URINE. PT TURNED Q2 HR. FALL PRECAUTIONS IN PLACE. CALL LIGHT IN REACH. PT DOES NOT ATTEMPT TO USE IT. PT ROUNDED ON HOURLY. WILL CONTINUE WITH PLAN OF CARE.
[2017-05-20 20:00] VITALS: BP 113/52
--- NOTE | 2017-05-20 20:00 | NUR ---
RECEIVED REPORT AND ASSUMED CARE OF PT, ASSESSMENT COMPLETED. PT PLEASANT AND COOPERATIVE. O2 ON AT 6L/HFC, HOB ELEVATED. ASSISTED WITH REPOSITIONING FROM SIDE TO SIDE. COCCYX AREA RED. POPSICLE OFFERED TO PT AND ENJOYING IT. TELEMETRY ON SHOWING A-FIB. WILL CONT TO MONITOR AND ASSIST NEEDED.
[2017-05-21] VITALS (7 sets, daily range): BP systolic 95–140; BP diastolic 47–65
--- NOTE | 2017-05-21 01:30 | NUR ---
PT BECOMING INCREASINGLY CONFUSED AND AGITATED. DEMANDING BIPAP BE REMOVED BECAUSE HE HAS AN APPOINTMENT. BECOMING AGITATED WHEN ATTEMPTING TO ORIENT AND REDIRECT. IM HALDOL GIVEN. KEEPING BIPAP ON.
[2017-05-21 05:10] LABS: ABSOLUTE LYMPHOCYTES 0.4 thou/uL (0.8-5.3); ABSOLUTE MONOCYTES 0.5 thou/uL (0.0-1.2); ABSOLUTE NEUTROPHILS 12.4 thou/uL (1.6-8.1); HEMATOCRIT 25.8 % (42.0-52.0); HEMOGLOBIN 8.6 gm/dL (14.0-18.0); LYMPHOCYTES 3.2 %; MCH 27.8 pg (26.0-34.0); MCHC 33.2 g/dL (28.0-37.0); MCV 83.7 fL (80.0-100.0); MONOCYTES 3.5 %; MPV 9.1 fl. (7.2-11.1); NUCLEATED RBCS 0 /100WBC; PLATELET COUNT* 231 thou/uL (150-400); POLYS 93.3 %; RBC 3.09 mil/uL (4.50-6.00); RDW-CV 14.7 % (10.5-14.5); WBC 13.3 thou/uL (4.0-11.0)
[2017-05-21 05:39] LABS: PREALBUMIN 27.2 mg/dL (18.0-35.7)
[2017-05-21 05:41] LABS: ALBUMIN 2.1 g/dL (3.4-5.0); CALCIUM 7.8 mg/dL (8.5-10.1); CREATININE 3.3 mg/dL (0.6-1.3); TOTAL BILIRUBIN 0.7 mg/dL (<0.1-1.0); TOTAL PROTEIN 5.5 g/dL (6.4-8.2)
--- NOTE | 2017-05-21 06:56 | NUR ---
AWAKE ALL NIGHT, CONFUSED AND RESTLESS. HALDOL NOT EFFECTIVE. CONT ASKING FOR A SANDWICH. ASKED FOR AND GIVEN COFFEE OCC. ASSISTED WITH REPOSITIONING. INCONT OF LG LOOSE STOOL THIS AM. BIPAP REMOVED BY PT AT APPROX 0200, HFC APPLIED. NO CHANGE IN ASSESSMENT. TELEMETRY CONT TO SHOW A-FIB. UNABLE TO MEET HS GOALS. HOUR ROUNDING OBSERVED.
--- NOTE | 2017-05-21 08:27 | NUR ---
ASSUMED PT CARE AT 0730, FULL ASSESMENT DONE CHARTED. PT A/O X3, PT SLEEPY BUT PLEASANT. PT ON 6L HIGH FLOW NC SATS 95%, LUNGS ARE DIMINISHED. ALL OTHER VSS, SINUS ARRHYTHMIA ON THE MONITOR. PTS K+LOW THIS AM, WILL REPLACE. FALL PRECATUIOINS IN PLACE. WILL CONTINUE WITH PLAN OF CARE.
--- NOTE | 2017-05-21 14:52 | NUR ---
Discussed disposition with sig other in room. Discussed possibility that Pt may not qualify for acute rehab, sig other voiced understanding. Discussed possible need for skilled, Pt has been to [facility] prior. Sig other requested that CM speak with Pt's dtr, who should be on her way to the hospital now. CM to f/u
--- NOTE | 2017-05-21 19:03 | NUR ---
PT IMPROVING TODAY. UP TO CHAIR FOR APPROX 6 HOURS.IS VERY WEAK. HAD 3 LOOSE STOOLS, SAMPLE SENT FOR CDIFF. PT PLACED ON ISO. HE ATE ALL 3 MEALS. GETTING K+ REPLACED. TURNED Q2 HRS. USING CALL LIGTH SOME TODAY. FAMILY IN TO VISIT. PT DENIES PAIN. ON 6L ALL SHIFT. VSS. WILL CONTINUE TO MONITOR TO END OF SHIFT.
[2017-05-22 04:00] VITALS: BP 132/55
[2017-05-22 05:06] LABS: HEMOGLOBIN 8.7 gm/dL (14.0-18.0); MCH 28.2 pg (26.0-34.0); MCHC 33.5 g/dL (28.0-37.0); MCV 84.3 fL (80.0-100.0); MPV 9.8 fl. (7.2-11.1); NUCLEATED RBCS 0 /100WBC; PLATELET COUNT* 226 thou/uL (150-400); RBC 3.09 mil/uL (4.50-6.00); RDW-CV 14.4 % (10.5-14.5); WBC 16.1 thou/uL (4.0-11.0)
--- NOTE | 2017-05-22 05:17 | NUR ---
Pt restless at times early in shift. Pt had loose BM X1 overnight. Refused BIPAP when first offered by RT at [facility], but then accepted BIPAP at 0300. Pt rested well for most of night. VSS, though SBP 90s. Will continue to monitor.
[2017-05-22 05:23] LABS: ALBUMIN 2.1 g/dL (3.4-5.0); CALCIUM 8.1 mg/dL (8.5-10.1); CREATININE 3.1 mg/dL (0.6-1.3); MAGNESIUM 2.2 mg/dL (1.8-2.4); TOTAL BILIRUBIN 0.8 mg/dL (<0.1-1.0); TOTAL PROTEIN 5.2 g/dL (6.4-8.2)
[2017-05-22 05:24] LABS: POTASSIUM 4.2 mmol/L (3.5-5.1)
[2017-05-22 05:25] LABS: PREALBUMIN 29.4 mg/dL (18.0-35.7)
[2017-05-22 06:09] LABS: ABSOLUTE LYMPHOCYTES 0.3 thou/uL (0.8-5.3); ABSOLUTE MONOCYTES 0.3 thou/uL (0.0-1.2); ABSOLUTE NEUTROPHILS 15.5 thou/uL (1.6-8.1); ANISOCYTOSIS 1+; PLATELET ESTIMATE ADEQUATE; POIKILOCYTOSIS 1+
[2017-05-22 08:00] VITALS: BP 148/72
[2017-05-22 09:25] LABS: SOURCE THORACENTESIS
[2017-05-22 09:26] LABS: SOURCE THORACENTESIS
--- NOTE | 2017-05-22 09:49 | NUR ---
ECOLOGIST TECHNICIAN: REGARDING REHAB INPATIENT CONSULT: PATIENT AT THIS TIME APPEARS TO BE MAKING SMALL GAINS IN THERAPY INCONSISTENTLY. AT THIS TIME, WOULD RECOMMEND PATIENT DISCHARGE TO SNU FOR CONTINUED THERAPY AND THEN TRANSITION TO INPATIENT REHAB UNIT IF CONTINUING TO MAKE PROGRESS. THANK YOU FOR CHANCE TO FOLLOW THIS PATIENT.
--- NOTE | 2017-05-22 11:31 | NUR ---
RECIEVED REPORT FROM EDENILSON AND ASSUMED CARE OF PT @ 6311. PT IS A/O X2 BUT SLEEPY. PT BP SLIGHTLY ELEVATED AT 148/72- MEDICATIONS GIVEN. TRACING SINUS ARRYTHMIA ON MONITOR.LUNG SOUNDS ARE DIMINSHED,O2 SAT 98% ON 4L. LAST BM WAS YESTERDAY AND WAS LOOSE BUT MIRALAX WAS HELD TODAY.IV RIGHT FOREARM D5 RUNNING AT 80ML/HR. PT IS CALM BUT HAS EPISODES OF CRYING AND GRIMACING FACE. PT DENIES PAIN AT TIME OF ASSESSMENT AND STATED HE WANTED TO BE LEFT ALONE. PT IS UP WITH 2 ASSIST WITH GAIT BELT AND WALKER TO [facility]. PT HAD MRI AND EEG THIS MORNING. PT REFUSED TO EAT BREAKFAST. WILL CONTINUE TO [facility].
--- NOTE | 2017-05-22 13:20 | NUR ---
PROJECT CONSTRUCTION ASSISTANT MANAGER: CONTACT MADE WITH PATIENT DAUGHTER, RICH. PROJECT CONSTRUCTION ASSISTANT MANAGER DISCUSSED WITH DAUGHTER THAT AT THIS TIME PATEINT NOT ABLE TO TOLERATE ENOUGH THERAPY TO RETURN TO INPATIENT REHAB UNIT. DAUGHTER INSISTED THAT PATEINT WAS NOT READY TO BE THINKING ABOUT DISCHARGE PLANS AND INSISTENT THAT PATIENT WILL NOT RETURN TO A SNU FACILITY. CONTACT WAS MADE AT REQUEST OF CM. ACTIVE LISTENING PROVIDED BY PROJECT CONSTRUCTION ASSISTANT MANAGER, BUT RESTATED THAT PATIENT DOES NOT MEET REHAB INPATIENT CRITERIA AT THIS TIME.
[2017-05-22 16:10] VITALS: BP 139/53
--- NOTE | 2017-05-22 16:15 | CNG ---
[address] [address] CYTO-NONGYN REPORT PROCEDURE Name: BECK CROFT Room: [address] IN .R.#: [id number] Admission: 05/06/17 Date of : 45 Discharge: Report #: [id number] Path Case #: [id number] CYTOPATHOLOGY REPORT COLLECTION DATE: 05/18/2017 RECEIVED DATE: 05/21/2017 SUBMITTING PHYS: Dr. Refugio Martínez OTHER PHYS: Dr. Baljinder Quintana CLINICAL HISTORY: Respiratory distress, N17.0, J69.0 SPECIMEN(S) RECEIVED: A.Pleural fluid,Left * * * * * * * * * * * * FINAL DIAGNOSIS: A. Pleural fluid,Left: - No malignant cells identified. Reactive mesothelial cells and few, predominantly chronic inflammatory cells present. (TERRI:db; 05/22/2017) PATHOLOGIST: Asim Gudino M.D. REPORT ELECTRONICALLY SIGNED BY: Asim Gudino M.D. DATE/TIME: 05/22/2017 16:14 * * * * * * * * * * * * GROSS PATHOLOGY: A. Pleural fluid, Left: The specimen is submitted unfixed, labeled "Beck Croft". Received by the Cytology Department is 60 mL of cloudy yellow fluid. One ThinPrep slide and a formalin fixed cell block were prepared. (lg 05.21.2017) TEA TREE FARM WORKER(S): STACI Borges(ASCP) INITIAL CPT CODE(S): A; 51951, 32680 Professional services performed by [facility] at [facility], [address], [place] [address]. Technical services performed by [facility] at [address] [place] [address], [address], [place] [address]. [address], [address] [place] [address] PHONE: [phone] DIRECTOR: Prashanth Ayala M.D. * * * END OF REPORT * * *
--- NOTE | 2017-05-22 18:24 | NUR ---
THIS NURSE AGREES WITH ALL CHARTING AND DOCUMENTATION COMPLETED BY MELANIE CRESPO RN.
--- NOTE | 2017-05-22 18:33 | NUR ---
PT VSS,CARDIAC MONITORING IN PLACE WITH NO CHANGES.PT REMAINS ON 4L O2 AND BIPAP AT NIGHT. PT MAINTAINS RESENDIZ, SECURE AND PATENT. PT WAS UP TO CHAIR THIS AFTERNOON, VISITING WITH FAMILY.PT MANAGED PO MEDS CRUSHED IN PUDDING WELL. PT ATE SEVERAL SNACKS AND SMALL PORTION OF DINNER TRAY WITH FAMILY ENCOURAGEMENT. IVF INFUSING PER ORDERS. PT HAS DENIED PAIN ALL OF SHIFT.PT MOOD IS BETTER THIS AFTERNOON WITH LESS EPISODES OF CRYING AND MORE AWAKE.PER DR REQUEST PT IS TO NOT BE GIVEN SEDATION MEDICATION THIS EVENING UNLESS ABSOLUTLEY NECESSARY, NURSE WILL PASS ONTO RADIOLOGIC TECH. PT PROGRESSING TOWARDS GOALS. PT WORKED WITH PT/OT TODAY IN ROOM. HOURLY ROUNDING COMPLETED FOR PT SAFETY. CALL LIGHT AND FALL PRECAUTIONS IN PLACE.WILL CONTINUE TO MONITOR FOR DURATION OF SHIFT.
[2017-05-22 19:55] VITALS: BP 159/63
[2017-05-23 00:03] VITALS: BP 156/71
[2017-05-23 04:00] VITALS: BP 162/65
--- NOTE | 2017-05-23 06:57 | NUR ---
Pt A&O X4 during early part of shift. However, pt began to express some agitation as well as disorientation beginning at around 2200. States he can hear "his kid's voice" in the hallway. At 0150, pt removed BIPAP and stated he would not be wearing it anymore. Pt also refused O2 via NC. SaO2 92-93% on RA. Remained off O2 until early this morning, then placed on 0.5L by RT. VSS. Will continue to monitor.
[2017-05-23 10:57] LABS: ABSOLUTE LYMPHOCYTES 0.5 thou/uL (0.8-5.3); ABSOLUTE MONOCYTES 1.1 thou/uL (0.0-1.2); ABSOLUTE NEUTROPHILS 14.5 thou/uL (1.6-8.1); BASOPHILS 0.1 %; HEMATOCRIT 29.4 % (42.0-52.0); HEMOGLOBIN 9.8 gm/dL (14.0-18.0); LYMPHOCYTES 3.2 %; MCH 28.7 pg (26.0-34.0); MCHC 33.2 g/dL (28.0-37.0); MCV 86.4 fL (80.0-100.0); MONOCYTES 7.1 %; MPV 10.3 fl. (7.2-11.1); NUCLEATED RBCS 0 /100WBC; PLATELET COUNT* 241 thou/uL (150-400); POLYS 89.6 %; RBC 3.41 mil/uL (4.50-6.00); RDW-CV 14.8 % (10.5-14.5); WBC 16.2 thou/uL (4.0-11.0)
[2017-05-23 11:07] LABS: ALBUMIN 2.4 g/dL (3.4-5.0); CALCIUM 8.3 mg/dL (8.5-10.1); POTASSIUM 4.1 mmol/L (3.5-5.1); TOTAL BILIRUBIN 0.8 mg/dL (<0.1-1.0); TOTAL PROTEIN 5.2 g/dL (6.4-8.2)
[2017-05-23 11:54] VITALS: BP 99/57
[2017-05-23 16:00] VITALS: BP 128/46
--- NOTE | 2017-05-23 19:43 | NUR ---
PATINET RESTING IN BED. UP TO CHAIR WITH ASSIST X2 AND WALKER USAGE. VITAL SIGNS SDTABLE. PAITNET APPETITE IS IMPROVING. POSSIBLE DC TO SNF TOMORROW IF APPROVAL OF DPOA AND DAUGHTER ARE OBTAINED. PATINET STILL EXPERIENCEING L SIDED WEAKNESS. HOURLY ROUNDING COMPLETD FOR PATIENT SAFETY.
[2017-05-23 19:59] VITALS: BP 160/63
[2017-05-24 00:12] VITALS: BP 153/58
[2017-05-24 03:53] VITALS: BP 150/67
--- NOTE | 2017-05-24 05:05 | NUR ---
Pt alert, oriented to self. Oriented to place and situation at times. Based on his behavior pattern which starts around 2300 the past two nights, alprazolam given at 2130. At approx 2230, pt yelled out. When I entered room and asked what he needed, he c/o "dogs running around." When clarification sought, pt yelled "get these G__ d____ dogs out of here!" Pt has good hearing and is able to hear monitor alarms as well as voices out at nurses' station, so bed alarm was set to 2nd zone and door shut. Pt was asleep within 30 minutes afterward and has slept up to and including this point in the shift. VSS, and O2 sat has been in low 90s on RA. Will continue to monitor.
[2017-05-24 05:34] LABS: ABSOLUTE LYMPHOCYTES 0.6 thou/uL (0.8-5.3); ABSOLUTE NEUTROPHILS 7.6 thou/uL (1.6-8.1); BASOPHILS 0.4 %; HEMATOCRIT 26.4 % (42.0-52.0); HEMOGLOBIN 8.9 gm/dL (14.0-18.0); LYMPHOCYTES 6.1 %; MCH 28.5 pg (26.0-34.0); MCHC 33.6 g/dL (28.0-37.0); MCV 84.9 fL (80.0-100.0); MONOCYTES 11.1 %; MPV 10.4 fl. (7.2-11.1); NUCLEATED RBCS 0 /100WBC; PLATELET COUNT* 208 thou/uL (150-400); POLYS 82.4 %; RBC 3.11 mil/uL (4.50-6.00); RDW-CV 14.7 % (10.5-14.5); WBC 9.2 thou/uL (4.0-11.0)
[2017-05-24 05:58] LABS: ALBUMIN 2.1 g/dL (3.4-5.0); CALCIUM 7.9 mg/dL (8.5-10.1); CREATININE 2.7 mg/dL (0.6-1.3); POTASSIUM 3.5 mmol/L (3.5-5.1); TOTAL BILIRUBIN 1.1 mg/dL (<0.1-1.0); TOTAL PROTEIN 4.9 g/dL (6.4-8.2)
--- NOTE | 2017-05-24 10:22 | NUR ---
Dtr and sig other to be at the hospital after lunch to discuss disposition. Dc orders written. Plan skilled then possibly home with palliative v. hospice or LTC.
--- NOTE | 2017-05-24 11:01 | NUR ---
RECEIVED REPOT AND ASSUMED CARE AT 0730. VSS. CARDIAC MONITORING IN PLACE. ASSESSEMNT COMPLETED CHARTED. PT ON RA, UP WITH 2 WITH WALKER. L SIDED WEAKNESS R/T PREVIOUS CVA. PT AWAKE AND ORIENTATED TO SELF. LABILE AFFECT. DISCUSSED PLAN OF CARE, VERBALIZED UNDERSTANDING, YET PT IS CONFUSED. WILL REINFORCE WITH PT AND SUPPORT SYSTEM. BED ALARM ON, BED IN LOWEST POSITION, CALL LIGHT WITHIN REACH. POSSIBLE DISCHARGE PENDING PLACEMENT WILL CONTINUE TO MONITOR FOR REMAINDER OF THE SHIFT.
[2017-05-24 12:35] VITALS: BP 158/65
--- NOTE | 2017-05-24 15:08 | NUR ---
DPOA and dtr were able to speak with Dr Maloney today regarding dx and prognosis. Afterwards, CM had long discussion with family, they are now in agreement with skilled with the possible need to transition Pt to LTC. Discussed facility options. [facility] does not have LTC bed available. Family to tour [facility] and [facility] Faxed referrals to both. CM encouraged family to contact an senior trial attorney regarding assets and applying for [place] Medicaid. Discussed a conversation that was had between Pt and Dr Swanson, with family present on May 07, at which time Pt was A&O. During this conversation, Pt made it clear that he did not want his life prolonged, if it was deemed futile. Spoke with Dr Swanson and he confirmed that this conversation did take place, and that Pt voiced that he did not want his life prolonged if there was not hope for recovery. An Outside of the Hospital DNR completed today, DPOA to sign when she returns to the hospital this evening. CM left DNR on the front of the chart. Updated nurse. Waiting to hear from family regarding which facility they want. Anticipate that Pt will be ready to dc tomorrow.
[2017-05-24 16:59] VITALS: BP 123/90
--- NOTE | 2017-05-24 19:29 | NUR ---
PT IN RECLINER WATCHING TV. VSS. CARDIAC MONITORING IN PLACE. PT POSSIBLY D/C 05/25/17 TO SNF. FAMILY VISITING FACILITIES BEFORE DECIDING. CASE MANAGEMENT AWARE. PT AWAKE AND ORIENTATED TO SELF. UP WITH 2 WITH WALKER. ON RA. NURSING WILL CONTINUE TO MONITOR.
--- NOTE | 2017-05-24 19:45 | NUR ---
THIS NURSE AGREES WITH ALL CHARTING AND DOCUMENTATION COMPLETED BY ELVIS MERCADO RN.
[2017-05-24 20:30] VITALS: BP 165/61
[2017-05-25 00:52] VITALS: BP 187/88
[2017-05-25 04:42] VITALS: BP 153/66
--- NOTE | 2017-05-25 04:58 | NUR ---
ASSUMED CARE AROUND 1930. PT A/OX1-2, TEARFUL AT TIMES. PT AWAKE MOST THE NIGHT BUT CALM/ COOPERATIVE, NOT IMPULSIVE. PT IN RECLINER STILL, DENIED WANTING TO GO TO BED TO SLEEP WHEN ASKED. TELE MONITOR TRACING SA/AFIB WITH HR 60-80'S. BP ELEVATED PRIOR TO SCHED PO HYDRALAZINE. ON ROOM AIR. IV SALINE LOCKED. RESENDIZ TO D/D. PT REPOSITIONING SELF IN CHAIR. NO NEW CONCERNS VOICED. CALL LIGHT IN REACH, CHAIR ALARM IN PLACE, WILL CONTINUE WITH PLAN OF CARE.
[2017-05-25 07:56] VITALS: BP 112/64
--- NOTE | 2017-05-25 08:43 | NUR ---
[facility] is able to accept Pt for skilled to LTC, CM to contact DPOA to determine which facility family chose.
--- NOTE | 2017-05-25 09:56 | NUR ---
Pt discharging to [facility] today, [facility] will picker box operator at 130pm. Faxed dc orders. Chart copied. DNR signed and completed, original sent with Pt. Updated Pt's sig other of disposition, she is in agreement. Nurse report number provided, .
[2017-05-25] MEDS ORDERED: XANAX 0.25 MG0.25 MG PO (10:30)
[2017-05-25] MEDS ORDERED: FLOMAX0.4 MG PO (10:31)
[2017-05-25] MEDS ORDERED: CARDIZEM CD120 MG PO (10:31)
[2017-05-25] MEDS ORDERED: VITAMIN B-1100 M1 PO (10:32)
[2017-05-25] MEDS ORDERED: PREDNISONE 10 M10 MG PO (10:33)
[2017-05-25] MEDS ORDERED: OMEPRAZOLE40 MG PO (10:34)
[2017-05-25] MEDS ORDERED: AUGMENTIN 875-1 EACH PO (10:34)
--- NOTE | 2017-05-25 10:40 | NUR ---
ASSUMED CARE OF PATIENT AFTER REPORT THIS MORNING. PATIENT SLEEPING DURING TIME OF ASSESSMENT. ANSWERED ORIENTATION TO SELF APPROPRIATELY, WITH EYES CLOSED. DID NOT ANSWER ANY OTHER ORIENTATION QUESTIONS AND DID NOT OPEN EYES. PHYSICAL ASSESSMENT COMPLETED AND CHARTED. VITAL SIGNS STABLE. OXYGEN SATURATION WITHIN NORMAL LIMITS ON ROOM AIR. GIVEN SCHEDULED MEDICATIONS EXCEPT VITAMIN D AND PLATEL, SEE EMAR FOR DOCUMENTATION. CRUSHED MEDS EXCEPT CARDIZEM AND GIVEN WITH ICE CREAM PER PATIENT REQUEST. CARDIZEM GIVEN WHOLE WITH WATER. PATIENT IS IN CHAIR AT THIS TIME. ASSISTANCE FROM STAFF NEEDED WHEN AMBULATING AND TRANSFERRING. DOES NOT USE CALL LIGHT AND REQUIRES FREQUENT OBSERVATION. PATIENT DENIED NEEDS. CALL LIGHT WITHIN REACH. NURSING WILL CONTINUE TO MONITOR.
[2017-05-25 10:53] VITALS: BP 112/64
[2017-05-25 11:21] VITALS: BP 120/54
--- NOTE | 2017-05-25 13:03 | NUR ---
RECEIVED ORDERS TO DISCHARGE PATIENT TO SNF. TRANSPORTATION TO ARRIVE AT 1330. REPORT CALLED AND GIVEN TO NURSE ABDALLA AT [facility]. PATIENT'S FAMILY AWARE OF DISCHARGE AND TRANSFER TO SNF. AGREEABLE. NO APPARENT NEEDS AT THIS TIME. CALL LIGHT WITHIN REACH. WILL CONTINUE TO MONITOR UNTIL DISCHARGE.
--- NOTE | 2017-05-25 13:39 | NUR ---
IV DISCONTINUED. DISCHARGE PAPERWORK IN DISCHARGE PACKET GIVEN TO TRANSPORTER ALONG WITH PRESCRIPTION FOR XANAX. PATIENT DISCHARGED AT THIS TIME.
--- NOTE | 2017-06-05 17:05 | EEG ---
[address] [address] EEG STUDY REPORT Name: RUVALCABASHERI Samantha Room: [address] IN M.R.#: [id number] Admission: 05/06/17 Attend Phys: Baljinder Stoll MD Discharge: 05/25/17 Date of : 45 Report #: [id number] THIS REPORT FOR: //name// CC: Baljinder Quintana DATE OF SERVICE: 05/22/2017 This patient has a question of seizure. EEG was done by placing the electrodes by standard 10-20 system of electrode placement. Both referential and sequential montages were used for recording. Background activity appeared to be about 7 Hz and 30 microvolts. Photic stimulation is unremarkable. EEG does appear to be somewhat more slow intermittently. That is probably because of the patient being even more drowsy. Photic stimulation was unremarkable. Throughout the record, no active epileptiform activity was noticed. IMPRESSION: This patient's EEG demonstrates bilateral slowing. That is a nonspecific finding, which can occur with encephalopathy, effect of psychotropic medication, dementia, etc. Clinical correlation is recommended. <ELECTRONICALLY SIGNED> By: Laron Blancas MD 06/05/17 1705 1500 [id number] Blancas MD /nt
--- NOTE | 2017-07-17 15:21 | CON ---
[address] [address] CONSULTATION Name: SHERI RUVALCABA Room: [address] IN .R.#: [id number] Admission: 05/06/17 Attend Phys: Baljinder Stoll MD Discharge: 05/25/17 Date of : 45 Report #: [id number] THIS REPORT FOR: //name// CC: Baljinder Quintana REASON FOR CONSULTATION: Evaluation and recommendations regarding post-acute rehabilitation. The patient was admitted initially and discharged to acute, further consultation was not completed at this time. <ELECTRONICALLY SIGNED> By: Alyssa Cary DO 07/17/17 1521 1445 [id number] Cary DO /nt
== END 2017-05-25 13:42 | DRG 177 ==
LOC: M.ICU 23:04 → M.2W 05-08 15:08 → M.ICU 05-15 09:40 → M.2W 05-17 10:47
PROVIDERS: Internal Medicine; Internal Medicine Critical Care Medicine; Internal Medicine Nephrology; ADMIT Internal Medicine
PROC: 5A09357 Assistance with Respiratory Ventilation, Less than 24 Consecutive Hours, Continuous Positive Airway Pressure (ICD-10-PCS; principal; 2017-05-07)
PROC: 0DJ08ZZ Inspection of Upper Intestinal Tract, Via Natural or Artificial Opening Endoscopic (ICD-10-PCS; 2017-05-11)
PROC: 0W9B3ZX Drainage of Left Pleural Cavity, Percutaneous Approach, Diagnostic (ICD-10-PCS; 2017-05-11)
PROC: 5A09357 Assistance with Respiratory Ventilation, Less than 24 Consecutive Hours, Continuous Positive Airway Pressure (ICD-10-PCS; 2017-05-17)
PROC: 0W993ZX Drainage of Right Pleural Cavity, Percutaneous Approach, Diagnostic (ICD-10-PCS; 2017-05-18)
PROC: 0W9B3ZX Drainage of Left Pleural Cavity, Percutaneous Approach, Diagnostic (ICD-10-PCS; 2017-05-18)
PROC: 5A09357 Assistance with Respiratory Ventilation, Less than 24 Consecutive Hours, Continuous Positive Airway Pressure (ICD-10-PCS; 2017-05-18)
PROC: 5A09357 Assistance with Respiratory Ventilation, Less than 24 Consecutive Hours, Continuous Positive Airway Pressure (ICD-10-PCS; 2017-05-19)
PROC: 5A09357 Assistance with Respiratory Ventilation, Less than 24 Consecutive Hours, Continuous Positive Airway Pressure (ICD-10-PCS; 2017-05-20)
PROC: 5A09357 Assistance with Respiratory Ventilation, Less than 24 Consecutive Hours, Continuous Positive Airway Pressure (ICD-10-PCS; 2017-05-21)
PROC: 5A09357 Assistance with Respiratory Ventilation, Less than 24 Consecutive Hours, Continuous Positive Airway Pressure (ICD-10-PCS; 2017-05-22)
DX: J69.0 Pneumonitis due to inhalation of food and vomit (principal); N17.0 Acute kidney failure with tubular necrosis; J96.01 Acute respiratory failure with hypoxia; G93.40 Encephalopathy, unspecified; I69.351 Hemiplegia and hemiparesis following cerebral infarction affecting right dominant side; E87.0 Hyperosmolality and hypernatremia; E87.2 Acidosis; J44.0 Chronic obstructive pulmonary disease with (acute) lower respiratory infection; I47.1 Supraventricular tachycardia; R65.10 Systemic inflammatory response syndrome (SIRS) of non-infectious origin without acute organ dysfunction; E46 Unspecified protein-calorie malnutrition; J90 Pleural effusion, not elsewhere classified; I73.9 Peripheral vascular disease, unspecified; E87.6 Hypokalemia; E78.5 Hyperlipidemia, unspecified; F03.90 Unspecified dementia, unspecified severity, without behavioral disturbance, psychotic disturbance, mood disturbance, and anxiety; I48.91 Unspecified atrial fibrillation; R33.9 Retention of urine, unspecified; E86.0 Dehydration; D64.9 Anemia, unspecified; F10.10 Alcohol abuse, uncomplicated; E87.70 Fluid overload, unspecified; K44.9 Diaphragmatic hernia without obstruction or gangrene; N18.3 Chronic kidney disease, stage 3 (moderate); I12.9 Hypertensive chronic kidney disease with stage 1 through stage 4 chronic kidney disease, or unspecified chronic kidney disease; J15.6 Pneumonia due to other Gram-negative bacteria; Z68.25 Body mass index [BMI] 25.0-25.9, adult; Y95 Nosocomial condition; E87.8 Other disorders of electrolyte and fluid balance, not elsewhere classified; Z79.02 Long term (current) use of antithrombotics/antiplatelets; Z79.82 Long term (current) use of aspirin; Z79.899 Other long term (current) drug therapy; Z87.891 Personal history of nicotine dependence; Z90.49 Acquired absence of other specified parts of digestive tract; Z82.3 Family history of stroke

== ENCOUNTER 2017-06-02 10:03 | Inpatient (IN) | payer MEDICARE, OTHER ==
[~2017-06-02] VITALS: Ht 175.3 cm; Wt 61.8 kg
[2017-06-02] VITALS (8 sets, daily range): BP systolic 101–120; BP diastolic 48–63
[~2017-06-02 10:03] MED LIST changes: +AUGMENTIN 875-1 EACH PO; +CARDIZEM CD120 MG PO; +FLOMAX0.4 MG PO; +OMEPRAZOLE40 MG PO; +PREDNISONE 10 M10 MG PO; +VITAMIN B-1100 M1 PO; +XANAX 0.25 MG0.25 MG PO
[2017-06-02 10:39] LABS: HEMATOCRIT 29.8 % (42.0-52.0); HEMOGLOBIN 9.8 gm/dL (14.0-18.0); MCH 28.5 pg (26.0-34.0); MCHC 32.9 g/dL (28.0-37.0); MCV 86.7 fL (80.0-100.0); MPV 9.5 fl. (7.2-11.1); NUCLEATED RBCS 0 /100WBC; PLATELET COUNT* 176 thou/uL (150-400); RBC 3.44 mil/uL (4.50-6.00); RDW-CV 16.4 % (10.5-14.5); WBC 14.5 thou/uL (4.0-11.0)
[2017-06-02 10:41] LABS: BE -4.4 mmol/L (-2 to +3); HCO3 18.2 mmol/L (22.0-26.0); PCO2 25.4 mmHg (35.0-45.0); PO2 76.2 mmHg (75.0-100.0); pH 7.472 (7.340-7.450)
[2017-06-02 10:47] LABS: CALCIUM 8.7 mg/dL (8.5-10.1); CREATININE 2.7 mg/dL (0.6-1.3)
[2017-06-02 10:49] LABS: POTASSIUM 2.9 mmol/L (3.5-5.1)
[2017-06-02] MEDS ORDERED: REMERON15 MG PO (10:51)
[2017-06-02 11:05] LABS: ALBUMIN 2.9 g/dL (3.4-5.0); MAGNESIUM 2.2 mg/dL (1.8-2.4); TOTAL BILIRUBIN 1.1 mg/dL (<0.1-1.0); TOTAL PROTEIN 6.6 g/dL (6.4-8.2)
[2017-06-02 11:06] LABS: ABSOLUTE LYMPHOCYTES 0.7 thou/uL (0.8-5.3); ABSOLUTE MONOCYTES 0.3 thou/uL (0.0-1.2); ABSOLUTE NEUTROPHILS 13.5 thou/uL (1.6-8.1); PLATELET ESTIMATE ADEQUATE; TROPONIN-I LEVEL 4.85 ng/mL (<0.06)
[2017-06-02 18:51] LABS: BE -6.3 mmol/L (-2 to +3); HCO3 17.2 mmol/L (22.0-26.0); PCO2 27.3 mmHg (35.0-45.0); PO2 63.7 mmHg (75.0-100.0); pH 7.416 (7.340-7.450)
[2017-06-03] VITALS (23 sets, daily range): BP systolic 91–124; BP diastolic 37–80
[2017-06-03 00:58] LABS: URINE BILIRUBIN NEGATIVE (Negative); URINE BLOOD 3+ (Negative); URINE CLARITY SL CLOUDY; URINE COLOR STRAW; URINE GLUCOSE-RANDOM NEGATIVE (Negative); URINE KETONES NEGATIVE (Negative); URINE LEUKOCYTES-REFLEX 1+ (Negative); URINE NITRITE-REFLEX NEGATIVE (Negative); URINE PROTEIN NEGATIVE (Negative); URINE UROBILINOGEN 0.2 E.U./dl (0.2-1.0)
[2017-06-03 01:09] LABS: SQUAMOUS NONE SEEN /LPF (0-3)
[2017-06-03 01:10] LABS: HYALINE CASTS 4-10 Moderate /LPF (None Seen)
[2017-06-03 01:11] LABS: URINE RBC 3-10 Few /HPF (0-2); URINE WBC-REFLEX 6-15 Few /HPF (0-5)
[2017-06-03 01:12] LABS: CRYSTALS None Seen /LPF (None Seen); YEAST-REFLEX Present (None Seen)
[2017-06-03 04:08] LABS: HEMATOCRIT 25.4 % (42.0-52.0); HEMOGLOBIN 8.4 gm/dL (14.0-18.0); MCH 28.5 pg (26.0-34.0); MCV 86.4 fL (80.0-100.0); MPV 9.8 fl. (7.2-11.1); RBC 2.94 mil/uL (4.50-6.00); RDW-CV 16.2 % (10.5-14.5); WBC 19.2 thou/uL (4.0-11.0)
[2017-06-03 05:16] LABS: ALBUMIN 2.6 g/dL (3.4-5.0); ALKALINE PHOSPHATASE 51 U/L (46-116); ANION GAP 15 mmol/L (7-16); BUN 38 mg/dL (7-18); CALCIUM 8.2 mg/dL (8.5-10.1); CHLORIDE 110 mmol/L (98-107); CO2 20 mmol/L (21-32); CREATININE 2.8 mg/dL (0.6-1.3); GLUCOSE 147 mg/dL (70-99); NT-PRO BRAIN NAT PEPTIDE > 35000 pg/mL (<300); SGOT 120 U/L (15-37); SGPT 28 U/L (30-65); SODIUM 145 mmol/L (136-145); TOTAL PROTEIN 5.6 g/dL (6.4-8.2)
[2017-06-03 05:24] LABS: TROPONIN-I LEVEL 19.44 ng/mL (<0.06)
[2017-06-03 08:11] LABS: HCO3 18.7 mmol/L (22.0-26.0); PO2 94.5 mmHg (75.0-100.0); pH 7.491 (7.340-7.450)
--- NOTE | 2017-06-03 13:26 | EKG ---
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 : 1945 Requested By: Gloria Mcdonald Order Number: [id number] Reading MD: Mick Mcdonald Measurements Intervals [place] Rate: 149 P: [place]: QRS: 37 QRSD: 79 T: 245 QT: 299 QTc: 471 Interpretive Statements Atrial fibrillation with rapid V-rate Repolarization abnormality, prob rate related Baseline wander in lead(s) V1,V2 Compared to ECG 05/17/2017 15:50:36 Ventricular premature complex(es) no longer present Left ventricular hypertrophy no longer present ST (T wave) deviation no longer present Electronically Signed On 06-03-2017 13:26:35 CDT by Mick Mcdonald [email or web address] <ELECTRONICALLY SIGNED> By: Gloria Mcdonald MD, FACC 06/03/17 1326 1010 1010 Gloria Mcdonald MD, [facility] /EPI
--- NOTE | 2017-06-03 13:27 | EKG ---
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: : 1945 Requested By: Astrid Cuellar Order Number: [id number] MD: Mick Mcdonald Measurements Intervals [place] Rate: 154 P: 140 SC: 156 QRS: 50 QRSD: 93 T: QT: 272 QTc: 436 Interpretive Statements Supraventricular tachycardia Ventricular premature complex Probable LVH with secondary repol abnrm Compared to ECG 05/17/2017 15:50:36 Atrial fibrillation no longer present ST (T wave) deviation no longer present Electronically Signed On 06-03-2017 13:27:44 CDT by Mick Mcdonald [email or web address] <ELECTRONICALLY SIGNED> By: Gloria Mcdonald MD, [facility] 06/03/17 1327 1342 134 Gloria Mcdonald MD, [facility] /EPI
--- NOTE | 2017-06-03 13:28 | EKG ---
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: : 1945 Requested By: Gloria Mcdonald Order Number: [id number] Reading MD: Mick Mcdonald Measurements Intervals [place] Rate: 136 P: [place]: QRS: 43 QRSD: 86 T: -79 QT: 319 QTc: 480 Interpretive Statements Atrial fibrillation Probable LVH with secondary repol abnrm Borderline prolonged QT interval Compared to ECG 05/17/2017 15:50:36 Ventricular premature complex(es) no longer present ST (T wave) deviation no longer present Electronically Signed On 06-03-2017 13:28:18 CDT by Mick Mcdonald [email or web address] <ELECTRONICALLY SIGNED> By: Gloria Mcdonald MD, [facility] 06/03/17 1328 1533 1533 Gloria Mcdonald MD, [facility] /EPI
--- NOTE | 2017-06-03 13:31 | CON ---
[address] [address] CONSULTATION Name: SHERI RUVALCABA Room: [address] IN M.R.#: [id number] Admission: 06/02/17 Attend Phys: Janna Ga MD Discharge: Date of : 45 Report #: [id number] THIS REPORT FOR: //name// CC: FAM unknown Janna Ga TYPE OF REPORT: Cardiology consultation. HISTORY OF PRESENT ILLNESS: I was asked to see this 72-year-old white male in Cardiology consultation for evaluation and treatment of an elevated troponin. His troponin was 4.85. Additionally, this man has an NT-pro-BNP of 12,592. He cannot give a history. He has had a CVA in the past and he lives in a detention. He was sent in from the detention because of increased shortness of breath as well as a low O2 sat over the last 2 days. He was just discharged from this hospital 3 days ago. He has not had chest pain but has had quite a bit of shortness of breath according to his and my history is obtained from the and previous records. Previous records included records from his last hospitalization here at the detention and the ER. His chest x-ray shows cardiomegaly, pleural effusions and infiltrates. There is little overall change with slight improvement in the left lung base and there is vascular congestion and edema seen. He did have an echo that said to show normal left ventricular systolic and diastolic dysfunctions and I will attempt to find that echo and review it. That was done on his last admission. He did have a thoracentesis done that in fact did reveal a transudate. He has multiple medical problems including atrial fibrillation with a rapid ventricular response. He has hypokalemia. His potassium was only 2.7. It is not clear why it is low. He has been getting potassium. His magnesium was normal. He was hypoxemic with a pO2 of 76.2. It is not clear whether that was on room air or on O2, however. His pCO2 was 25 and his pH was 7.42. He has had a previous CVA and as mentioned, he has peripheral vascular disease. He has had stents in his arteries in his legs. He has dysphagia and aspiration pneumonia. He has chronic renal failure. He had acute renal failure on his last admission. He has essential hypertension, hyperlipidemia and COPD. Again, he cannot give a history. He has not had any chest pain according to his . Just shortness of breath with some orthopnea and PND. He has no edema; however. He has not had syncope. He currently does not smoke but used to smoke. He also used to drink. He has not had diabetes. His family history is unknown to her. He cannot tell me, he does have the renal failure mentioned. He does have some carotid stenosis. He has had claudication in the past. ALLERGIES: He has no known allergies. MEDICATIONS: Include albuterol 2 puffs q.i.d., alprazolam 0.25 mg at bedtime as needed, aspirin 81 mg daily, atorvastatin 40 mg daily, vitamin D 2000 units b.i.d., Pletal 100 mg b.i.d., Plavix 75 mg daily, B12 1000 mcg daily orally, diltiazem 120 mg sustained release b.i.d., folic acid 1 mg daily, DuoNeb q. 4h., Toprol 50 mg b.i.d., Remeron 15 mg at bedtime, omeprazole 40 mg daily, [address] [place] [address] CONSULTATION Name: SHERI RUVALCABA Room: [address] IN ..#: [id number] Admission: 06/02/17 Attend Phys: Janna Ga MD Discharge: Date of : 45 Report #: [id number] prednisone in a tapering dose. He has been on 10 mg daily recently and Flomax 0.4 mg daily. REVIEW OF SYSTEMS: He cannot provide a review of systems as he is not communicative. SOCIAL HISTORY: He is , does not smoke, drink or use illegal drugs. Currently, he is unemployed. FAMILY HISTORY: Unknown to his and he cannot express himself. PHYSICAL EXAMINATION: GENERAL: He presents as a well-developed, well-nourished, but quite slender white male, in no acute distress. VITAL SIGNS: He is 5 feet 10 inches tall and weighs only 145 pounds. His pulse was 143, blood pressure 102/55, respirations 20 and regular and temperature is 98.4. HEENT: His head was atraumatic. Eyes clear. Mucous membranes are moist. NECK: Supple. There is no jugular venous distention or hepatojugular reflux. Thyroid is not enlarged. There is no adenopathy. SKIN: Warm and dry. LUNGS: Clear to auscultation and percussion. HEART: Revealed normal first and second heart sound. There is no S4. There is no S3. There are no murmurs, rubs, thrills, heaves or gallops. PMI is nondisplaced. The rhythm was irregularly irregular, rate was around 150. PMI is not displaced. ABDOMEN: Soft, flat and nontender. No palpable masses. No organomegaly. EXTREMITIES: Reveal no cyanosis, clubbing or edema. NEUROLOGICAL: The patient did not mentate normally. He did not talk normally. He did move all extremities normally. IMPRESSION: 1. Elevated troponin, possible nmk-TT-jiobpev-elevation myocardial infarction, in fact probable ltz-UB-kbrckgm-elevation myocardial infarction. 2. Congestive heart failure, ehxmx-tc-dpaahno diastolic heart failure. 3. Atrial fibrillation with a rapid ventricular response. 4. Hypokalemia. 5. Status post cerebrovascular accident. 6. Peripheral vascular disease. 7. Dysphagia. 8. Aspiration. 9. Chronic renal failure. 10. Essential hypertension. 11. Hyperlipidemia. 12. Chronic obstructive pulmonary disease. 13[place] [address] CONSULTATION Name: SHERI RUVALCABA Room: [address] IN [facility].#: [id number] Admission: 06/02/17 Attend Phys: Janna Ga MD Discharge: Date of : 45 Report #: [id number] RECOMMENDATION: I did try to slow his heart rate with some digoxin before or after getting his potassium. He does have an elevated QTC interval. His QT is only 272 with his QTC is 436, which is towards the upper limit of normal and he did have torsade on his last visit here. So, I will only use amiodarone if absolutely necessary to slow his heart rate or put him in sinus rhythm as he does appear on the old records from his last visit to have periods when he is in sinus rhythm. This man is no code and do not intubate. The question of whether or not he should be a comfort measures only should be discussed. Thank you very much for asking me to see the patient. If there are any questions, please feel free to contact me. <ELECTRONICALLY SIGNED> By: Gloria Mcdonald MD, FACC 06/03/17 1331 1410 [id number]. Mick Mcdonald MD, FACC /nt
[2017-06-04 02:00] VITALS: BP 106/56
[2017-06-04 04:00] VITALS: BP 110/75
[2017-06-04 04:01] LABS: HEMATOCRIT 23.8 % (42.0-52.0); HEMOGLOBIN 7.9 gm/dL (14.0-18.0); MCH 28.2 pg (26.0-34.0); MCHC 33.1 g/dL (28.0-37.0); MCV 85.1 fL (80.0-100.0); MPV 9.8 fl. (7.2-11.1); RBC 2.8 mil/uL (4.50-6.00); RDW-CV 16.1 % (10.5-14.5); WBC 17.6 thou/uL (4.0-11.0)
[2017-06-04 04:22] LABS: ALBUMIN 2.5 g/dL (3.4-5.0); CALCIUM 8.3 mg/dL (8.5-10.1); CREATININE 3.2 mg/dL (0.6-1.3); MAGNESIUM 1.8 mg/dL (1.8-2.4); POTASSIUM 3.1 mmol/L (3.5-5.1); TOTAL BILIRUBIN 1.3 mg/dL (<0.1-1.0); TOTAL PROTEIN 5.9 g/dL (6.4-8.2)
[2017-06-04 04:23] LABS: TROPONIN-I LEVEL 12.22 ng/mL (<0.06)
[2017-06-04 06:00] VITALS: BP 111/59
[2017-06-04 08:00] VITALS: BP 100/58
--- NOTE | 2017-06-04 09:53 | CON ---
[address] [address] CONSULTATION Name: SHERI RUVALCABA Room: [address] IN M.R.#: [id number] Admission: 06/02/17 Attend Phys: Janna Ga MD Discharge: Date of : 45 Report #: [id number] THIS REPORT FOR: //name// CC: FAM unknown Janna Ga HISTORY OF PRESENT ILLNESS: The patient is a 72-year-old male patient who was on BiPAP during my evaluation, did not participate in the history. I did review the medical records and discussed with the nursing staff. He has a history of CVA and resident of a group home. Apparently, he had also history of dysphagia in the past with aspiration pneumonia. He was hospitalized more than once this year with respiratory failure including pneumonia, suspected to be aspiration, and history of COPD exacerbation. He had history of pleural effusion in the past, also had a transudative pleural effusion on the thoracentesis in the past. His medical problems include atrial fibrillation with RVR, hyperkalemia in the past too in addition to chronic renal failure. The patient does not provide good history, but on reviewing the records, he presented to the ER with increasing shortness of breath, worsening the morning of hospitalization and he reports some chest discomfort. Apparently, he is on oxygen at baseline. When I saw him, he was on BiPAP, seems to be tolerating that well. He was pulling good volumes. His chest x-ray showed right lower lobe pulmonary infiltrate. PAST MEDICAL HISTORY: History of COPD, history of stroke, previous history of renal failure, history of dysphagia, aspiration pneumonia. His echocardiogram on 05/07/2017, ejection fraction was 70% with pulmonary artery pressure of 35 mmHg with aortic stenosis that was described to be mild. SOCIAL HISTORY: He has history of smoking 2 packs per day for several decades and apparently quit smoking a few months ago, history of heavy alcohol abuse, but no history of drug abuse. PAST SURGICAL HISTORY: Appendectomy and hernia repair. HOME MEDICATIONS: Reviewed per the [employer] documentation. ALLERGIES: No known drug allergies. REVIEW OF SYSTEMS: Unobtainable due to the patient's condition. He was on BiPAP. PHYSICAL EXAMINATION: VITAL SIGNS: Blood pressure 124/63, O2 saturation 96%, was 70% FiO2 on the BiPAP, pulse rate of 100, temperature 36.7. GENERAL APPEARANCE: Awake, alert, nodding her head to questions. HEENT: Normocephalic, atraumatic. Pupils are reactive to light. External ear looks healthy and normal. Oral cavity not examined because [place] [address] CONSULTATION Name: SHERI RUVALCABA Room: [address] IN ..#: [id number] Admission: 06/02/17 Attend Phys: Janna Ga MD Discharge: Date of : 45 Report #: [id number] I did not take it off. NECK: Supple. No palpable lymph node. No palpable thyroid. Trachea is central. CHEST: Rhonchi and crackles heard bilaterally, mostly on the right side in addition to wheezes. Nontender chest to palpation. HEART: S1, S2, slightly tachycardic. ABDOMEN: Benign, soft, lax, nontender, positive bowel sounds. No masses felt. EXTREMITIES: Lower extremity, trace edema, no calf tenderness. SKIN: Normal for age and race, no rash. PSYCHIATRIC: Mood and affect could not be evaluated. NEUROLOGIC: Movements in the extremities were noted, but it was limited due to the patient's condition. LYMPHATICS: No palpable lymph node. LABORATORY DATA: His ABGs initially 7., this was done on nonrebreather. The ABGs this morning on the BiPAP is still pending. White blood count 14.5, hemoglobin 9.8, platelets of 176. His creatinine is 2.8, BUN of 38, chloride 110, bicarbonate 20. Troponin was noted to be elevated too with elevated BNP. His chest x-ray showed signs of vascular congestion, bilateral lower lobe infiltrates, more of the right than the left. IMPRESSION: 1. Acute likely on chronic hypoxic respiratory failure. 2. Pneumonia. 3. Dysphagia. 4. Concerns about aspiration. 5. Congestive heart failure with fluid overload. 6. Chronic obstructive pulmonary disease and exacerbation. PLAN: At this point, the patient is on antibiotics. I would continue those. He is on BiPAP support, we will need to wean his FiO2 down. I did discuss with RN and RT. We can take him off the BiPAP daytime for a brief period of time for diet, but he needs to be on it p.r.n. and every time he goes to sleep. He will be on IV steroids, scheduled nebulization treatments, monitor his kidney function. Try to keep him negative fluid balance, although it was noted his creatinine is elevated. Cardiology will be following along. CONDITION: Guarded. PROGNOSIS: Guarded. Discussed with the nursing staff. [address] [address] CONSULTATION Name: SHERI RUVALCABA Room: [address] IN ..#: [id number] Admission: 06/02/17 Attend Phys: Janna Ga MD Discharge: Date of : 45 Report #: [id number] Thank you for the consult. <ELECTRONICALLY SIGNED> By: Chris Nick MD 06/04/17 0953 0806 1916Christie Hanna MD /nt
[2017-06-04 12:00] VITALS: BP 100/67
[2017-06-04 16:00] VITALS: BP 98/49
[2017-06-05 08:00] VITALS: BP 91/49
[2017-06-05 21:35] VITALS: BP 104/55
[2017-06-06 08:35] VITALS: BP 109/62
--- NOTE | 2017-06-06 09:52 | CON ---
[address] [address] CONSULTATION Name: SHERI RUVALCABA Room: [address] IN M.R.#: [id number] Admission: 06/02/17 Attend Phys: Janna Ga MD Discharge: Date of : 45 Report #: [id number] THIS REPORT FOR: //name// CC: FAM unknown Janna Ga NEPHROLOGY CONSULTATION CONSULTING PHYSICIAN: Dr. Ga. REASON FOR CONSULTATION: Acute kidney injury. HISTORY OF PRESENT ILLNESS: A 72-year-old gentleman who was recently hospitalized for pneumonia eventually and was transferred to a nursing facility and was admitted on 06/02/2017 with non-ST elevation UT and fluid overload. Cardiology is following. He has a baseline creatinine of 1. It was 2.7 on 05/24/2017 and on admission, it was 2.7. It is up to 3.2 today. He has had some low blood pressures and is on respiratory support as well. The patient himself is unable to provide any history. His family is present at the bedside and helped provide some historical information. REVIEW OF SYSTEMS: Constitutional, psych, heme, eyes, ENT, respiratory, cardiac, GI, , endocrine all negative, except as documented above and as best can be ascertained. PAST MEDICAL HISTORY: COPD, hypertension, history of peripheral vascular disease, carotid disease, alcohol use and history of CVA with right hemiparesis. SOCIAL HISTORY: Positive tobacco use. Positive history of alcohol use. FAMILY HISTORY: Not pertinent in this 72-year-old gentleman. PHYSICAL EXAMINATION: VITAL SIGNS: Blood pressure 111/59, pulse 126, temperature 37.5 and respirations 20. GENERAL: No acute distress. EYES: Open. EARS: Externally normal. CARDIOVASCULAR: Tachycardic. LUNGS: Diminished breath sounds. ABDOMEN: Soft. LYMPHATICS: No significant pitting edema. PSYCHIATRIC: Awake, but not able to answer questions. LABORATORY DATA: White cell count 17.6, hemoglobin 7.9 and platelets 122,000. Sodium 151, potassium 3.1, chloride 113, bicarbonate 21, BUN 43, creatinine 3.2, glucose 115 and calcium 8.3. Magnesium 1.8. Troponin 12. Albumin 2.5. [place] [address] CONSULTATION Name: SHERI RUVALCABA Room: [address] IN [facility]#: [id number] Admission: 06/02/17 Attend Phys: Janna Ga MD Discharge: Date of : 45 Report #: [id number] ASSESSMENT: 1. Acute kidney injury in the setting of hypertension and a non-ST elevation myocardial infarction with pulmonary edema. Admission creatinine 2.7, up to 3.2 in 06/04/2017. On 05/24/2017, creatinine was 2.7. During that hospitalization, he had creatinines up into the 4s. Baseline creatinine appears to be 1. U/A noted. In 04/2017, ejection fraction was 65% to 70%. 2. Anemia. 3. Hypernatremia. 4. Hypokalemia. 5. Volume overload/pulmonary edema. 6. Chronic obstructive pulmonary disease exacerbation. 7. Non-ST elevation myocardial infarction. 8. Suspected aspiration pneumonia. 9. History of cerebrovascular accident and right hemiparesis. 10. History of alcohol use. 11. Atrial fibrillation. 12. Urinary retention with Avalos catheter placement. PLAN: 1. He is making good urine. Lasix 80 mg IV was given. 2. He will need a repeat U/A at a later time. His urine is growing Dariela. Nurse will contact hospitalist for possible antifungal therapy. 3. Caution vancomycin use in the setting of renal insufficiency. 4. Check renal ultrasound secondary to fungal UTI. 5. Potassium is being replaced. 6. Family relates to me that they are not interested in aggressive measures and palliative care has been consulted. We will follow along with you. Thank you for requesting my opinion in the care and management of this patient. <ELECTRONICALLY SIGNED> By: Yvonne Black MD 06/06/17 0952 [id number] [id number] Black MD /nt
[2017-06-06 16:00] VITALS: BP 113/54
[2017-06-06 22:53] VITALS: BP 100/53
[2017-06-07 08:00] VITALS: BP 77/42
== END 2017-06-06 16:55 | disposition hospice, inpatient (51) | DRG 177 ==
LOC: M.ERS 10:03 → M.ICU 11:41 → M.TBA-ER 11:41 → M.2W 13:21 → M.ICU 19:55 → M.3W 06-04 14:23
PROVIDERS: Family Medicine; Personal Emergency Response Attendant; ADMIT Internal Medicine
PROC: 5A09357 Assistance with Respiratory Ventilation, Less than 24 Consecutive Hours, Continuous Positive Airway Pressure (ICD-10-PCS; principal; 2017-06-03)
PROC: 5A09357 Assistance with Respiratory Ventilation, Less than 24 Consecutive Hours, Continuous Positive Airway Pressure (ICD-10-PCS; 2017-06-04)
DX: J69.0 Pneumonitis due to inhalation of food and vomit (principal); I21.4 Non-ST elevation (NSTEMI) myocardial infarction; J96.21 Acute and chronic respiratory failure with hypoxia; I50.33 Acute on chronic diastolic (congestive) heart failure; G93.40 Encephalopathy, unspecified; N17.0 Acute kidney failure with tubular necrosis; R47.01 Aphasia; J44.1 Chronic obstructive pulmonary disease with (acute) exacerbation; E87.0 Hyperosmolality and hypernatremia; E46 Unspecified protein-calorie malnutrition; R65.10 Systemic inflammatory response syndrome (SIRS) of non-infectious origin without acute organ dysfunction; J90 Pleural effusion, not elsewhere classified; I69.951 Hemiplegia and hemiparesis following unspecified cerebrovascular disease affecting right dominant side; F10.27 Alcohol dependence with alcohol-induced persisting dementia; I13.0 Hypertensive heart and chronic kidney disease with heart failure and stage 1 through stage 4 chronic kidney disease, or unspecified chronic kidney disease; I73.9 Peripheral vascular disease, unspecified; I48.91 Unspecified atrial fibrillation; E87.6 Hypokalemia; N18.9 Chronic kidney disease, unspecified; E78.5 Hyperlipidemia, unspecified; R13.10 Dysphagia, unspecified; D64.9 Anemia, unspecified; R33.9 Retention of urine, unspecified; Z87.891 Personal history of nicotine dependence; Z90.49 Acquired absence of other specified parts of digestive tract; Z95.820 Peripheral vascular angioplasty status with implants and grafts; Z68.20 Body mass index [BMI] 20.0-20.9, adult

== ENCOUNTER 2017-06-06 16:55 | Inpatient (IN) | payer OTHER ==
[~2017-06-06] VITALS: Ht 175.3 cm; Wt 61.7 kg
--- NOTE | 2017-06-07 14:59 | NUR ---
PT.ADMITTED TO [facility] WITH [facility] LAST EVENING. SHEMARRN HERE AT THIS TIME FROM [facility] TO CHECK ON PT.AND VISIT WITH FAMILY. [facility] PHONE NUMBER IS [phone].
--- NOTE | 2017-06-07 20:02 | NUR ---
RESUMED CARE THIS AM. CONT TO BE NONRESPONSIVE, IRREGULAR BREATHING, IRREGULAR PULSE, NO MOVEMENT, NO RESPONSE TO DEEP STIMULI. IV MORPHINE CONT TO INFUSE, NO OBJECTIVE CUES FOR PAIN. NOTHING BY MOUTH, FAMILY AT BEDSIDE, FAMILY DECLINES REPOSITIONING. FRIENDS FROM THE [facility] CAME BY AND VISITED WITH PATIENT AND FAMILY THIS AFTERNOON, HOSPICE NURSE AT BEDSIDE. RESPIRATIONS DECREASED, NO AUDIBLE HEART BEAT @ 1617 THIS AFTERNOON, CONFIRMED BY SECOND NURSE AT 1620. HOSPICE NURSE COORDINATED ARRANGEMENTS WITH [employer], [facility] NOTIFIED, ALL BELONGINGS WITH FAMILY, PATIENT LEFT UNIT @ 1945 VIA CART WITH [facility] [employer].
== END 2017-06-07 16:20 ==
LOC: M.3W 16:55
PROVIDERS: ADMIT Internal Medicine
DX: I21.4 Non-ST elevation (NSTEMI) myocardial infarction (principal); J96.21 Acute and chronic respiratory failure with hypoxia; J69.0 Pneumonitis due to inhalation of food and vomit; N17.0 Acute kidney failure with tubular necrosis; G93.40 Encephalopathy, unspecified; I13.0 Hypertensive heart and chronic kidney disease with heart failure and stage 1 through stage 4 chronic kidney disease, or unspecified chronic kidney disease; E46 Unspecified protein-calorie malnutrition; F10.27 Alcohol dependence with alcohol-induced persisting dementia; R65.10 Systemic inflammatory response syndrome (SIRS) of non-infectious origin without acute organ dysfunction; I48.91 Unspecified atrial fibrillation; R33.9 Retention of urine, unspecified; I73.9 Peripheral vascular disease, unspecified; J44.9 Chronic obstructive pulmonary disease, unspecified; I50.9 Heart failure, unspecified; F03.90 Unspecified dementia, unspecified severity, without behavioral disturbance, psychotic disturbance, mood disturbance, and anxiety; N18.9 Chronic kidney disease, unspecified; I25.2 Old myocardial infarction; Z87.891 Personal history of nicotine dependence; Z95.820 Peripheral vascular angioplasty status with implants and grafts; Z86.73 Personal history of transient ischemic attack (TIA), and cerebral infarction without residual deficits; Z90.49 Acquired absence of other specified parts of digestive tract; Z79.82 Long term (current) use of aspirin; Z79.899 Other long term (current) drug therapy